=== PATIENT | male | born 1965 | race Caucasian/White ===

== ENCOUNTER → 2020-03-29 10:20 | Outpatient (BNVA) | payer MEDICARE, MEDICAID, SELFPAY | PROVIDERS: Family Provider Nurse Practitioner Family; PCP Nurse Practitioner Family; Visit Provider Internal Medicine Cardiovascular Disease | DX: I50.33 Acute on chronic diastolic (congestive) heart failure (principal); R06.02 Shortness of breath; E78.5 Hyperlipidemia, unspecified | CPT/HCPCS: 80048; 80061; 83880 ==

== ENCOUNTER 2021-04-07 15:44 | Inpatient (IN) | payer MEDICARE, MEDICAID, SELFPAY ==
[2021-04-07] VITALS (7 sets, daily range): BP systolic 120–138; BP diastolic 81–88; PULSE 87–102; RESP 18–22; TEMP 36.6–37.5; O2SAT 82–95; BMI 39.9; BMI 39.6
--- NOTE | 2021-04-07 15:55 | XRR_ITS ---
PROCEDURE INFORMATION: Exam: XR Chest Exam date and time: 04/07/2021 3:55 PM Age: 56 years old Clinical indication: Dyspnea; Additional info: Dyspnea, covid TECHNIQUE: Imaging protocol: XR of the chest. Views: 1 view. COMPARISON: No relevant prior studies available. FINDINGS: Lungs: Consolidative opacities within the mid and lower lungs. Curvilinear atelectasis at the left lung base. Pleural spaces: No evident pleural effusion. No pneumothorax. Heart/Mediastinum: Unremarkable. No cardiomegaly. Bones/joints: Visualized osseous structures are intact. XR/XR chest 1V portable [id number] IMPRESSION: Consolidative opacities within the mid and lower lungs consistent with COVID pneumonia.
--- NOTE | 2021-04-07 15:55 | ECG_ITS ---
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
--- NOTE | 2021-04-07 16:02 | ED_ITS ---
HPI - COVID General: Chief Complaint: COVID symptoms Stated Complaint: SOB; COVID + Time Seen by Provider: 04/07/21 15:51 Triage information: Has fever, cough or shortness of breath . 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 Benign essential HTN Dyslipidemia (high LDL; low HDL) Gout H/O testicular mass History of renal cell cancer Right kidney mass Shortness of breath on exertion SOB (shortness of breath) Testicular cancer Surgical History History of kidney removal Hx of cholecystectomy Family History Father CAD (coronary artery disease) Stroke Mother CAD (coronary artery disease) Diabetes Family/Other Chronic kidney disease (CKD) Brother Suicide Other Hyperlipidemia Hypertension Denies family history of Clotting disorder Dementia Anesthesia complication Bleeding disorder Lung disease Cancer Social History Smoking and tobacco status: current every day smoker (chewing tobacco) smokeless tobacco Smokeless tobacco user: chewing tobacco Alcohol intake: never Course Vital Signs: Vital signs: Vital Signs Temperature 97.8 F 04/07/21 15:52 Pulse Rate 102 H 04/07/21 15:52 Respiratory Rate 22 H 04/07/21 15:52 Blood Pressure 120/88 04/07/21 15:52 Pulse Oximetry 91 04/07/21 15:52 MDM - COVID Lab Data No Data to Display Discharge Plan Discharge Condition: Stable Prescriptions: No Action albuterol sulfate [Proventil HFA] 90 mcg/actuation HFA aerosol inhaler 2 puff INHALATION Q6H PRN0RF atorvastatin 40 mg tablet 40 mg PO DAILY 0RF Brilinta 90 mg tablet 90 mg PO BID 0RF gemfibrozil 600 mg tablet 600 mg PO BID 0RF amlodipine 10 mg tablet 10 mg PO DAILY 90 Days Qty: 90 3RF potassium chloride 8 mEq capsule, extended release 8 meq PO DAILY 30 Days Qty: 30 5RF chlorthalidone 25 mg tablet 25 mg PO DAILY 30 Days Qty: 30 5RF losartan 100 mg tablet 100 mg PO DAILY Qty: 90 3RF carvedilol 25 mg tablet 25 mg PO BID Qty: 60 5RF Rx Instructions: must administer with a meal/food Referrals: Steph Trinidad APN [Primary Care Provider] - Coding Level of Care Code ED Operations Director for Peter Jones
--- NOTE | 2021-04-07 16:09 | ED_ITS ---
HPI - General Adult General: Chief complaint: COVID symptoms Stated complaint: SOB; COVID + Time Seen by Provider: 04/07/21 15:51 History of Present Illness: CC: Shortness of breath, fever and generalized weakness HPI: This is a [56] yo patient w/ hx of CAD w/ stents, nephrectomy presenting to the ED with malaise, generalized weakness, cough sputum production, and fever at home x 7days. Since onset of symptoms, has had some shortness of breath and decreased PO intake. NO recent travel. Endorses no sick contacts around. Reports nausea/vomiting/diarrhea. Denies chest pain, diaphoresis, other GI or complaints. Denies any pleuritic chest pain, recent surgery/immobilization/t ravel, or hematemesis or hx of VTE in the past. Onset: 7 days ago Duration: ongoing for the last 7 days Location: home Severity: moderate Associated symptoms: Reports dyspnea, malaise, nausea and vomiting; Deny chest pain, rash or palpitations Review of Systems Const: Reports: fever(s), chills, fatigue (generalized weakness) and malaise Eyes: Denies: change in vision ENMT: Denies: mouth pain Card: Denies: chest pain or palpitations Resp: Reports: dyspnea and non-productive cough GI: Reports: nausea, vomiting and diarrhea; Denies: abdominal pain : Denies: dysuria Musc: Denies: extremity pain Skin/Breast: Denies: rash or new lesions Neuro: Denies: weakness in extremities Psych: Reports: other (Normal mood) Michele/Lymph: Denies: easy bruising [facility] ED PFSH: Medical History Atherosclerosis of coronary artery of [place] heart without angina pectoris Atherosclerotic heart disease of [place] coronary artery with other forms of angina pectoris Benign essential HTN Dyslipidemia (high LDL; low HDL) Gout H/O testicular mass History of renal cell cancer Right kidney mass Shortness of breath on exertion SOB (shortness of breath) Testicular cancer Surgical History History of kidney removal Hx of cholecystectomy Family History Father CAD (coronary artery disease) Stroke Mother CAD (coronary artery disease) Diabetes Family/Other Chronic kidney disease (CKD) Brother Suicide Other Hyperlipidemia Hypertension Denies family history of Clotting disorder Dementia Anesthesia complication Bleeding disorder Lung disease Cancer Social History Smoking and tobacco status: current every day smoker (chewing tobacco) smokeless tobacco Smokeless tobacco user: chewing tobacco Alcohol intake: never Physical Exam Const: COMMON NORMALS: alert HENMT: COMMON NORMALS: atraumatic HEAD & SCALP: atraumatic MOUTH: moist mucous membranes not abnormal Eye: COMMON NORMALS: EOMs intact bilaterally and conjunctivae normal CONJUNCTIVA: Yes conjunctivae normal Neck/C-Spine: COMMON NORMALS: full ROM and supple Resp: COMMON NORMALS: normal respiratory effort OTHER: Diminished lung sounds b/l Cardio: COMMON NORMALS: regular rate RATE: regular rate GI: COMMON NORMALS: Soft to palpation and non-tender PALPATION: Yes Soft to palpation Extremity: COMMON NORMALS: full ROM Neuro: SENSORIUM/ORIENTATION: Yes alert MOTOR EXAM: No Abnormal motor strength present and Other motor observations present (no focal motor deficits) Psych: COMMON NORMALS: speech normal SPEECH: Yes normal speech MOOD & AFFECT: Yes euthymic mood Course Vital Signs: Vital signs: Vital Signs Temperature 97.8 F 04/07/21 15:52 Pulse Rate 94 04/07/21 15:58 Respiratory Rate 19 H 04/07/21 15:58 Blood Pressure 120/88 04/07/21 15:58 Pulse Oximetry 85 L 04/07/21 16:38 MDM - General Adult Medical Decision Making [56]yo patient w/ hx of nephrectomy, CAD, HLD presenting to the ED with shortness of breath, cough, and malaise concerning for covid in the setting hypoxemia. Patient is on 4L NC with O2 sat of 90%. Upon ambulation, patient requires 12L of NC Given History, Exam, and Workup presentation most consistent with pneumonia.Presentation not consistent with PE, COPD exacerbation, Pneumothorax, TB, Atypical ACS, Esophageal Rupture, Toxic Exposure, Foreign Body Airway Obstruction. Workup: XR Chest, COVID PCR, covidl abs Intervention: Tylenol 1gram, PO challenge, IVF, serial reassessment, oxygen, decadron, remdesivir [5:36pm] On reassessment, XR findings of ground-glass opacity. Findings consi stent with viral pneumonia, suspected COVID. Cr of 1.8 today and K of 2.8. S/p 1L and potassium supplementation. Clinically, fever improved with tylenol. Patient requires 12L of oxygen for ambulation. Thus, patient will need inpatient hospitalization. S/p decadron and remdesivir. Will defer CTA given Cr of 1.8 and single kidney. Disposition: Admission. Lab Data : 04/07/21 16:07 04/07/21 16:07 Laboratory Results WBC 10.6 10^3/uL (4.0-10.0) H 04/07/21 16:07 RBC 5.17 10^6/uL (4.1-5.3) 04/07/21 16:07 Hgb 15.9 g/dL (11.7-16.6) 04/07/21 16:07 Hct 45.9 % (42.0-52.0) 04/07/21 16:07 MCV 88.8 fl (80-94) 04/07/21 16:07 MCH 30.8 pg (28.0-34.0) 04/07/21 16:07 MCHC 34.6 g/dL (30.0-36.0) 04/07/21 16:07 RDW 11.8 % (12.1-15.1) L 04/07/21 16:07 Plt Count 334 10^3/cmm (130-400) 04/07/21 16:07 MPV 10.9 fL (7.4-10.4) H 04/07/21 16:07 Neut % (Auto) 80.2 % 04/07/21 16:07 Lymph % (Auto) 8.2 % 04/07/21 16:07 Howard % (Auto) 6.5 % 04/07/21 16:07 Eos % (Auto) 0.1 % 04/07/21 16:07 Baso % (Auto) 0.6 % 04/07/21 16:07 Neut # (Auto) 8.53 10^3/uL (1.8-7.7) H 04/07/21 16:07 Lymph # (Auto) 0.9 10^3/uL (0.8-4.8) 04/07/21 16:07 Howard # (Auto) 0.7 10^3/uL (0.2-0.9) 04/07/21 16:07 Eos # (Auto) 0.0 10^3/uL (0.0-0.8) 04/07/21 16:07 Baso # (Auto) 0.1 10^3/uL (0.0-0.1) 04/07/21 16:07 Nucleated RBC % (auto) 0 % 04/07/21 16:07 Nucleated RBCs # 0.0 /100WBC 04/07/21 16:07 PT 13.20 SECONDS (12.1-14.9) 04/07/21 16:07 INR 0.97 (0.8-1.2) 04/07/21 16:07 APTT 28.8 SECONDS (23.9-36.7) 04/07/21 16:07 Fibrinogen 1414 mg/dL (174-498) H 04/07/21 16:07 D-Dimer 0.71 ug/mIFEU (0-0.59) H 04/07/21 16:07 Sodium 136 mmol/L (136-145) 04/07/21 16:07 Potassium 2.8 mmol/L (3.5-5.1) L* 04/07/21 16:07 Chloride 87 mmol/L (98-107) L 04/07/21 16:07 Carbon Dioxide 28 mmol/L (22-29) 04/07/21 16:07 Anion Gap 23.8 (5-19) H 04/07/21 16:07 BUN 32 mg/dL (6-20) H 04/07/21 16:07 Creatinine 1.8 mg/dL (0.7-1.2) H 04/07/21 16:07 GFR Calculation 38.9 mL/min (90-130) L 04/07/21 16:07 Glucose 229 mg/dL (65-115) H 04/07/21 16:07 Calculated Osmolality 296 mOsm/kg (285-295) H 04/07/21 16:07 Lactic Acid 1.7 mmol/L (0.5-2.2) 04/07/21 16:07 Calcium 11.1 mg/dL (8.5-10.5) H 04/07/21 16:07 Total Bilirubin 0.4 mg/dL (0.15-1.2) 04/07/21 16:07 AST 25 U/L (0-40) 04/07/21 16:07 ALT 25 U/L (0-41) 04/07/21 16:07 Alkaline Phosphatase 165 IU/L (40-130) H 04/07/21 16:07 Lactate Dehydrogenase 322 U/L (135-225) H 04/07/21 16:07 Creatine Kinase 132 U/L (39-308) 04/07/21 16:07 Troponin T Gen 5 ng/L 76 ng/L (0-15) H 04/07/21 16:07 C-Reactive Protein 309.0 mg/L (0.0-4.9) H 04/07/21 16:07 NT-Pro-B Natriuret Pep 349 pg/mL (0-125) H 04/07/21 16:07 Total Protein 6.6 g/dL (6.6-8.7) 04/07/21 16:07 Albumin 3.8 g/dL (3.5-5.2) 04/07/21 16:07 Globulin 2.8 g/dL (1.3-4.6) 04/07/21 16:07 Procalcitonin 0.54 ng/mL (0-0.5) H 04/07/21 16:07 Discharge Plan Discharge Patient Disposition: Admitted As Inpatient Clinical Impression: Cough, Dyspnea, COVID, RICARDA (acute kidney injury), Acute hypokalemia Condition: Stable Discharge Diet: Advance as tolerated Discharge Activity: Increase activity as tolerated Coding Level of Care Code ED Tax Services Specialist for Peter Fwd Exam Comprehensive
[2021-04-07] MEDS: acetaminophen 500 mg Tablet 1000 MG PO (16:28)
[2021-04-07] MEDS: lidocaine 2% viscous 15 ML, aluminum-mag hydrox-simethicon 30 ML, sucralfate oral liq 1 GM PO (16:28)
[2021-04-07] MEDS: sodium chloride 0.9% 1,000 ML 999 ML IV (16:28)
[2021-04-07 16:57] LABS: Basophils # 0.1 10^3/uL (0.0-0.1); Basophils % 0.6 %; Eosinophils % 0.1 %; Hematocrit 45.9 % (42.0-52.0); Hemoglobin 15.9 g/dL (11.7-16.6); Lymphocytes # 0.9 10^3/uL (0.8-4.8); Lymphocytes % 8.2 %; Mean Corpuscular HGB Conc 34.6 g/dL (30.0-36.0); Mean Corpuscular Hemoglobin 30.8 pg (28.0-34.0); Mean Corpuscular Volume 88.8 fl (80-94); Mean Platelet Volume 10.9 fL (7.4-10.4); Monocytes # 0.7 10^3/uL (0.2-0.9); Monocytes % 6.5 %; Neutrophils # 8.53 10^3/uL (1.8-7.7); Neutrophils % 80.2 %; Nucleated Red Blood Cells % 0 %; Platelet Count 334 10^3/cmm (130-400); Red Blood Count 5.17 10^6/uL (4.1-5.3); Red Cell Distribution Width 11.8 % (12.1-15.1); White Blood Count 10.6 10^3/uL (4.0-10.0)
[2021-04-07 16:59] LABS: ABG PCO2 51.8 mmHg (35-45); Base Excess ABG 5.9 mmol/L (-2.0-2.0); Blood Gas Allen Test Pos; Blood Gas Operator Identificat ED; Blood Gas Sample Site Radial, right; Blood Gas Sample Type Arterial; HCO3 ABG 32.3 mmol/L (22-26); Oxygen Device NC; PO2 ABG 75.2 mmHg (80.0-100.0)
[2021-04-07 17:07] LABS: INR 0.97 (0.8-1.2)
[2021-04-07 17:08] LABS: Partial Thromboplastin Time 28.8 SECONDS (23.9-36.7)
[2021-04-07 17:11] LABS: D Dimer 0.71 ug/mIFEU (0-0.59)
[2021-04-07 17:12] LABS: Lactic Sepsis W/Reflex 1.7 mmol/L (0.5-2.2)
[2021-04-07 17:14] LABS: Troponin T (5th) Once 76 ng/L (0-15)
[2021-04-07 17:23] LABS: Fibrinogen 1414 mg/dL (174-498); NT Pro B Type Natriuretic Pept 349 pg/mL (0-125); Procalcitonin 0.54 ng/mL (0-0.5)
[2021-04-07 17:34] LABS: Alanine Aminotransferase 25 U/L (0-41); Albumin Level 3.8 g/dL (3.5-5.2); Alkaline Phosphatase 165 IU/L (40-130); Anion Gap 23.8 (5-19); Aspartate Amino Transferase 25 U/L (0-40); Blood Urea Nitrogen 32 mg/dL (6-20); Calcium 11.1 mg/dL (8.5-10.5); Carbon Dioxide 28 mmol/L (22-29); Chloride 87 mmol/L (98-107); Creatine Phosphokinase 132 U/L (39-308); Globulin 2.8 g/dL (1.3-4.6); Glomerular Filtration Rate 38.9 mL/min (90-130); Glucose 229 mg/dL (65-115); Lactate Dehydrogenase 322 U/L (135-225); Osmolality Calculated 296 mOsm/kg (285-295); Sodium 136 mmol/L (136-145); Total Bilirubin 0.4 mg/dL (0.15-1.2); Total Protein 6.6 g/dL (6.6-8.7)
[2021-04-07 17:36] LABS: Potassium 2.8 mmol/L (3.5-5.1)
[2021-04-07] MEDS: potassium chloride ER 20 mEq Tablet 40 MEQ PO (17:51)
[2021-04-07] MEDS: dexamethasone 10 mg/mL INJ 6 MG IVP (17:52)
[2021-04-07] MEDS: lidocaine 1% 5 ML in potassium chloride premix 100 ML 50 ML IV (17:53)
[2021-04-07] MEDS: remdesivir 200 MG in sodium chloride 0.9% (100 ml) 60 ML 100 MG IV (17:58)
--- NOTE | 2021-04-07 21:21 | ECG_ITS ---
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1965 Requested By: Dagoberto Torrez Order Number: [id number] Reading MD: STEFANI BERG Measurements Intervals [place] Rate: 82 P: 45 ID: 151 QRS: 10 QRSD: 100 T: 53 QT: 365 QTc: 428 Interpretive Statements SINUS RHYTHM MINIMAL VOLTAGE CRITERIA FOR LVH, CONSIDER NORMAL VARIANT [MEETS CRITERIA IN ONE OF: R(aVL), S(V1), R(V5), R(V5/V6)+S(V1)] NONSPECIFIC T-WAVE ABNORMALITY Compared to ECG 04/07/2021 16:26:40 T-wave abnormality now present ST (T wave) deviation no longer present Electronically Signed On 04-08-2021 19:51:26 VICTORIAN LITERATURE PROFESSOR by STEFANI BERG [id number]
--- NOTE | 2021-04-07 21:42 | PM.HP ---
Providers/Chief Complaint Admitting Physician: Fuentes Seaman MD Primary Care Provider: Steph Trinidad APN Chief Complaint: SOB; COVID + History of Present Illness Luis Vidales is a 56 year old male with a past medical history of CAD status post stenting x1, CHF, hypertension, hyperlipidemia, prior history of smoking over 30 years ago, history of renal cell carcinoma with nephrectomy who presents to [facility] due to fatigue, malaise, shortness of breath, loss of taste, loss of smell, chest pain, for the last 7 days. Patient tells me that for the last 7 days he has had shortness of breath at rest with exertion, with low-grade fevers, productive cough, fatigue, malaise, for the last 3 days he has had significant nausea, vomiting, has not been able to keep anything down for the last 24 hours, also reports diarrhea. He also reports substernal chest pain, nonradiating, associate with shortness of breath, no lightheadedness, no diaphoresis. In the emergency room, patient was found to have consolidative process in bilateral lungs, elevated pro-Patrick, white count of 10.6, was given remdesivir, Decadron, Actemra, his potassium was 2.8 which was repleted, creatinine 1.8. He was admitted for COVID-19 pneumonia concerns, I have seen patient, currently is on 7 L, no tachypnea, no respiratory distress, no flu or Covid test has been ordered, which will I will order Review of Systems Const: Reports: fever(s), chills, fatigue and malaise Eyes: Denies: change in vision or blurry vision ENMT: Denies: nasal congestion Card: Reports: chest pain and dyspnea on exertion Resp: Reports: dyspnea, productive cough and wheezing; Denies: non-productive cough GI: Reports: nausea, vomiting and diarrhea; Denies: abdominal pain, hematemesis, constipation, hematochezia or melena : Denies: flank pain, difficulty urinating, dysuria or urinary frequency Musc: Denies: neck pain or back pain Skin/Breast: Denies: rash Neuro: Denies: headache(s), dizziness or vertigo Psych: Denies: anxiety or depression Endo: Denies: polyuria or polydipsia Medications/Allergies Home Medications Medication Instructions Recorded Confirmed Last Taken Type albuterol sulfate 90 mcg/actuation 2 puff INHALATION Q6H PRN 09/20/19 09/20/19 Unknown History aerosol inhaler (Proventil HFA) atorvastatin 40 mg tablet 40 mg PO DAILY 09/20/19 09/20/19 Unknown History ticagrelor 90 mg tablet (Brilinta) 90 mg PO BID 09/20/19 09/20/19 Unknown History amlodipine 10 mg tablet 10 mg PO DAILY 90 Days #90 tab 07/10/20 07/10/20 Unknown Rx gemfibrozil 600 mg tablet 600 mg PO BID tab 07/10/20 Unknown History losartan 100 mg tablet 100 mg PO DAILY #90 tab 08/20/20 Unknown Rx chlorthalidone 25 mg tablet 25 mg PO DAILY 30 Days #30 tab 02/14/21 02/14/21 Unknown Rx potassium chloride 8 mEq 8 meq PO DAILY 30 Days #30 cap 02/14/21 02/14/21 Unknown Rx capsule,extended release carvedilol 25 mg tablet 25 mg PO BID #60 tab 03/12/21 Unknown Rx acetaminophen 500 mg tablet 500 mg PO Q6H PRN 5 Days #20 tab 04/07/21 Unknown Rx calcium carbonate 1,000 1 tab PO TID PRN 7 Days #21 tab 04/07/21 Unknown Rx mg-simethicone 60 mg chewable tablet (Maalox Advanced) famotidine 20 mg tablet (Pepcid) 20 mg PO BID PRN 10 Days #20 tab 04/07/21 Unknown Rx ondansetron HCl 4 mg tablet 4 mg PO TID PRN 4 Days #12 tab 04/07/21 Unknown Rx (Zofran) Allergies Allergy/AdvReac Type Severity Reaction Status Date / Time isosorbide Allergy headache Verified 04/07/21 15:58 tramadol Allergy unk Verified 04/07/21 15:58 PFSH Acute PFSH: Medical History Atherosclerosis of coronary artery of [place] heart without angina pectoris Atherosclerotic heart disease of [place] coronary artery with other forms of angina pectoris Benign essential HTN Dyslipidemia (high LDL; low HDL) Gout H/O testicular mass History of renal cell cancer Right kidney mass Shortness of breath on exertion SOB (shortness of breath) Testicular cancer Surgical History History of kidney removal Hx of cholecystectomy Family History Father CAD (coronary artery disease) Stroke Mother CAD (coronary artery disease) Diabetes Family/Other Chronic kidney disease (CKD) Brother Suicide Other Hyperlipidemia Hypertension Denies family history of Clotting disorder Dementia Anesthesia complication Bleeding disorder Lung disease Cancer Social History Smoking and tobacco status: current every day smoker (chewing tobacco) smokeless tobacco Smokeless tobacco user: chewing tobacco Alcohol intake: never Vitals/I&O/Wt Last Vital Signs Temp 97.8 F 04/07/21 15:52 Pulse 94 04/07/21 18:02 Resp 18 04/07/21 18:02 BP 121/84 04/07/21 18:02 Pulse Ox 95 04/07/21 21:10 04/07/21 04/07/21 04/07/21 06:59 14:59 22:59 Intake Total 1105.833 / 1105.833 Balance 1105.833 / 1105.833 Weight last 48 hrs Weight 112.037 kg Weight 111.612 kg Weight 112.037 kg Physical Exam Const: COMMON NORMALS: no acute distress and patient oriented x3 HENMT: COMMON NORMALS: normocephalic HEAD & SCALP: normocephalic Neck/C-Spine: COMMON NORMALS: no JVD Lymph: LYMPHATIC: no lymphadenopathy noted Resp: COMMON NORMALS: normal respiratory effort, No retractions, No use of accessory muscles and clear to auscultation bilaterally AUSCULTATION: clear to auscultation bilaterally Cardio: COMMON NORMALS: no JVD, regular rate, regular rhythm, S1 normal heart sound present and S2 normal heart sound present RATE: regular rate RHYTHM: regular rhythm HEART SOUNDS: S1 normal heart sound present and S2 normal heart sound present GI: COMMON NORMALS: Normal to inspection, nondistended, normoactive bowel sounds present, Soft to palpation, non-tender, No hepatosplenomegaly present, no masses and no bruits PALPATION: Yes Soft to palpation and Yes No hepatosplenomegaly present Extremity: COMMON NORMALS: capillary refill normal, no clubbing, cyanosis or edema, no calf tenderness and no pedal edema Neuro: COMMON NORMALS: patient oriented x3 Psych: COMMON NORMALS: mental status grossly normal Data : 04/07/21 16:07 04/07/21 16:07 A&P Assessment and plan (1) Acute and chronic respiratory failure with hypoxia: Status: Acute (2) NSTEMI (non-ST elevated myocardial infarction): Status: Acute (3) RICARDA (acute kidney injury): Status: Acute (4) Acute hypokalemia: Status: Acute (5) Dyslipidemia (high LDL; low HDL): Status: Acute Plan Acute hypoxic respiratory failure -Currently on 7 L -Concerning for COVID-19 pneumonia -I have ordered a COVID-19 test, flu test -Has already received remdesivir, Decadron, Actemra -There is also concern for secondary bacterial pneumonia, given chest x-ray findings of consolidative processes, I started him on Rocephin and azithromycin -Elevated CRP at 309, pro-Patrick 0.54 -Vitamin C, zinc low vitamin D - budesonide, ipratropium -Incentive spirometer, flutter valve -Full code -Lovenox for DVT prophylaxis -Elevated D-dimer 0.7, monitor D-dimers, consider CT angiogram if D-dimer continues to be elevated, venous ultrasound NSTEMI -Concerns for chest pain has underlying cardiovascular history, CAD status post 20x1 -No current chest pain - Baseline troponin 76, EKG no acute ST-T wave changes -No further troponin series has been ordered -Serial troponins, serial EKGs ordered, telemetry monitoring -Continue Brilinta, statin -Cardiac echo ordered Has elevated blood sugars, no diagnosis of type 2 diabetes mellitus, will obtain A1c, monitor blood sugars CAD status post tenting History of renal cell carcinoma status post nephrectomy, Creatinine 1.8, RICARDA, however baseline creatinine unknown, renal ultrasound, gentle IV fluids Hypokalemia likely secondary to nausea, vomiting received IV replacement p.o. replacement monitor potassium Nausea, vomiting, diarrhea, stool studies, Zofran Attestations Medical Necessity Statement*: Patient requires hospitalization for acute respiratory failure secondary to concerns for COVID-19 pneumonia, possible secondary bacterial pneumonia, acute renal failure, hypokalemia Coding Level of Care Code Acute Director Franchise Sales for Chg Fwd History Comprehensive Exam Comprehensive Medical Decision Making High Complexity Diagnoses Acute and chronic respiratory failure with hypoxia J96.21 NSTEMI (non-ST elevated myocardial infarction) I21.4 RICARDA (acute kidney injury) N17.9 Acute hypokalemia E87.6 Dyslipidemia (high LDL; low HDL) E78.5 Time Spent (min) 55
[2021-04-07] MEDS: cefTRIAXone 1,000 MG in sodium chloride 0.9% (plus) 50 ML 100 MG IV (22:50)
[2021-04-07] MEDS: atorvastatin 40 mg Tablet PO (22:50)
[2021-04-07] MEDS: enoxaparin 40 mg/0.4 mL Syringe SUBCUT (22:50)
[2021-04-07] MEDS: ticagrelor 90 mg Tablet PO (22:51)
[2021-04-07] MEDS: sodium chloride 0.9% 1,000 ML 75 ML IV (22:51)
[2021-04-07] MEDS: famotidine 20 mg/2 mL INJ IVP (22:51)
[2021-04-07 23:14] LABS: Troponin(5th) Baseline 50 ng/L (0-15)
--- NOTE | 2021-04-07 23:21 | ECG_ITS ---
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: : 1965 Requested By: Dagoberto Torrez Order Number: [id number] Reading MD: STEFANI EBRG Measurements Intervals [place] Rate: 80 P: 46 NE: 143 QRS: 7 QRSD: 129 T: 55 QT: 378 QTc: 437 Interpretive Statements SINUS RHYTHM MODERATE INTRAVENTRICULAR CONDUCTION DELAY [110+ ms QRS DURATION] MODERATE VOLTAGE CRITERIA FOR LVH, CONSIDER NORMAL VARIANT [MEETS CRITERIA IN ONE OF: R(aVL), S(V1), R(V5), R(V5/V6)+S(V1)] NONSPECIFIC ST & T-WAVE ABNORMALITY Compared to ECG 04/07/2021 21:56:28 Intraventricular conduction delay now present T-wave abnormality still present Electronically Signed On 04-08-2021 19:52:34 RECORD PRESS SUPERVISOR by STEFANI BERG [id number]
[2021-04-07 23:25] LABS: Estmated Average Glucose 209; Hemoglobin A1C 8.9 % (4.0-6.0)
[2021-04-07] MEDS: azithromycin 500 MG in sodium chloride 0.9% 250 ML 250 MG IV (23:41)
[2021-04-07 23:55] LABS: Adenovirus Not Detected (NOT DETECT); Chlamydia Pneumoniae Not Detected (NOT DETECT); Coronavirus 229E,HKU1,NL63,OC4 Not Detected (NOT DETECT); Human Metapneumovirus Not Detected (NOT DETECT); Human Rhinovirus/Enterovirus Not Detected (NOT DETECT); Influenza A Not Detected (NOT DETECT); Influenza A H1 Not Detected (NOT DETECT); Influenza A H1-2009 Not Detected (NOT DETECT); Influenza A H3 Not Detected (NOT DETECT); Influenza B Not Detected (NOT DETECT); Mycoplasma Pneumoniae Not Detected (NOT DETECT); Parainfluenza Virus Type 1 Not Detected (NOT DETECT); Parainfluenza Virus Type 2 Not Detected (NOT DETECT); Parainfluenza Virus Type 3 Not Detected (NOT DETECT); Parainfluenza Virus Type 4 Not Detected (NOT DETECT); Respiratory Syncytial Virus A Not Detected (NOT DETECT); Respiratory Syncytial Virus B Not Detected (NOT DETECT); SARS-COV-2 Detected (NOT DETECT)
[2021-04-08] VITALS (14 sets, daily range): BP systolic 127–168; BP diastolic 71–88; PULSE 63–98; RESP 16–20; TEMP 36.4–36.9; O2SAT 92–96
[2021-04-08] MEDS: ipratropium-albuterol 3 mL Neb INHALATION ×6 (00:14→20:14)
[2021-04-08 01:03] LABS: Influenza A by IFA Negative (Negative); Influenza B by IFA Negative (Negative)
[2021-04-08 02:09] LABS: Troponin 5 2HR 41.47 ng/L (0-15)
--- NOTE | 2021-04-08 03:21 | ECG_ITS ---
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1965 Requested By: Dagoberto Torrez Order Number: [id number] Reading MD: STEFANI BERG Measurements Intervals [place] Rate: 85 P: 34 [place]: 153 QRS: 4 QRSD: 118 T: 71 QT: 369 QTc: 441 Interpretive Statements SINUS RHYTHM MODERATE INTRAVENTRICULAR CONDUCTION DELAY [110+ ms QRS DURATION] MODERATE VOLTAGE CRITERIA FOR LVH, CONSIDER NORMAL VARIANT [MEETS CRITERIA IN ONE OF: R(aVL), S(V1), R(V5), R(V5/V6)+S(V1)] NONSPECIFIC T-WAVE ABNORMALITY Compared to ECG 04/07/2021 23:36:49 No significant changes Electronically Signed On 04-08-2021 19:52:24 DESK DIRECTOR by STEFANI BERG [id number]
[2021-04-08 06:06] LABS: Basophils % 0.3 %; Hematocrit 43.7 % (42.0-52.0); Hemoglobin 15.1 g/dL (11.7-16.6); Lymphocytes # 0.5 10^3/uL (0.8-4.8); Lymphocytes % 7.9 %; Mean Corpuscular HGB Conc 34.6 g/dL (30.0-36.0); Mean Corpuscular Hemoglobin 30.9 pg (28.0-34.0); Mean Corpuscular Volume 89.5 fl (80-94); Mean Platelet Volume 10.8 fL (7.4-10.4); Monocytes # 0.3 10^3/uL (0.2-0.9); Neutrophils % 82.7 %; Nucleated Red Blood Cells % 0 %; Platelet Count 238 10^3/cmm (130-400); Red Blood Count 4.88 10^6/uL (4.1-5.3); Red Cell Distribution Width 11.9 % (12.1-15.1); White Blood Count 6.3 10^3/uL (4.0-10.0)
[2021-04-08 06:14] LABS: Troponin 5 6HR 37.31 ng/L (0-15)
[2021-04-08 06:23] LABS: Slide Review Slide Review Perform
[2021-04-08 06:42] LABS: NT Pro B Type Natriuretic Pept 92 pg/mL (0-125); Procalcitonin 0.28 ng/mL (0-0.5); Thyroid Stimulating Hormone 0.36 uIU/mL (0.27-4.20)
[2021-04-08 06:53] LABS: Alanine Aminotransferase 23 U/L (0-41); Alkaline Phosphatase 132 IU/L (40-130); Blood Urea Nitrogen 31 mg/dL (6-20); Calcium 10.3 mg/dL (8.5-10.5); Carbon Dioxide 21 mmol/L (22-29); Chloride 93 mmol/L (98-107); Globulin 3.6 g/dL (1.3-4.6); Glomerular Filtration Rate 68.8 mL/min (90-130); Glucose 329 mg/dL (65-115); Magnesium 2.2 mg/dL (1.7-2.3); Osmolality Calculated 295 mOsm/kg (285-295); Phosphorus 2.8 mg/dL (2.5-4.5); Sodium 133 mmol/L (136-145); Total Bilirubin 0.3 mg/dL (0.15-1.2); Total Protein 6.6 g/dL (6.6-8.7)
[2021-04-08 06:54] LABS: Glucose Point of Care 303 mg/dL (70-110)
[2021-04-08 06:55] LABS: Anion Gap 22.7 (5-19); Aspartate Amino Transferase 25 U/L (0-40); Potassium 3.7 mmol/L (3.5-5.1)
[2021-04-08] MEDS: zinc gluconate 50 mg Tablet PO (08:09)
[2021-04-08] MEDS: cholecalciferol (vitamin D3) 1,000 unit Tablet 1000 UNIT PO (08:09)
[2021-04-08] MEDS: famotidine 20 mg/2 mL INJ IVP ×2 (08:09→21:17)
[2021-04-08] MEDS: ascorbic acid 500 mg Tablet PO ×2 (08:09→17:23)
[2021-04-08] MEDS: carvedilol 25 mg Tablet PO ×2 (08:09→17:23)
[2021-04-08] MEDS: ticagrelor 90 mg Tablet PO ×2 (08:11→21:19)
[2021-04-08] MEDS: budesonide 0.5 mg/2 mL Neb INHALATION ×2 (09:20→20:14)
[2021-04-08] MEDS: sodium chloride 0.9% 1,000 ML 75 ML IV (12:10)
[2021-04-08 12:19] LABS: Glucose Point of Care 349 mg/dL (70-110)
[2021-04-08] MEDS: remdesivir 100 MG in sodium chloride 0.9% (100 ml) 80 ML IV (17:22)
[2021-04-08] MEDS: dexamethasone 10 mg/mL INJ 6 MG IVP (17:23)
[2021-04-08 17:24] LABS: Glucose Point of Care 310 mg/dL (70-110)
--- NOTE | 2021-04-08 17:51 | P.PN_ITS ---
Subjective Subjective: Interval history: He is feeling better. He is bothered by cough. Denies headache, nausea vomiting, chest pain or pressure. Vitals/I&O/Wt Last Vital Signs Temp 98.2 F 04/08/21 12:00 Pulse 76 04/08/21 16:51 Resp 16 04/08/21 16:51 BP 168/71 04/08/21 08:00 Pulse Ox 94 04/08/21 16:51 04/08/21 04/08/21 04/08/21 06:59 14:59 22:59 Intake Total 300 / 8359.416 0472.75 / 1318.75 Output Total 650 / 900 750 / 750 Balance -350 / 505.833 568.75 / 568.75 Weight last 48 hrs Weight 112.037 kg Weight 111.612 kg Weight 112.037 kg Physical Exam Const: COMMON NORMALS: no acute distress and patient oriented x3 HENMT: COMMON NORMALS: oropharynx normal Neck/C-Spine: COMMON NORMALS: no JVD Resp: COMMON NORMALS: normal respiratory effort and clear to auscultation bilaterally AUSCULTATION: clear to auscultation bilaterally Cardio: COMMON NORMALS: no JVD, regular rhythm, S1 normal heart sound present, S2 normal heart sound present and No murmurs present (Cardio) RHYTHM: regular rhythm HEART SOUNDS: S1 normal heart sound present and S2 normal heart sound present GI: COMMON NORMALS: Normal to inspection, nondistended, normoactive bowel sounds present, Soft to palpation and non-tender PALPATION: Yes Soft to palpation Extremity: COMMON NORMALS: no joint enlargement and no pedal edema Neuro: COMMON NORMALS: patient oriented x3 and moves all extremities Skin: COMMON NORMALS: no rashes or lesions noted GENERAL SKIN EXAM: no rashes or lesions noted Data : 04/08/21 04:41 04/08/21 04:41 Micro: Microbiology 04/07/21 21:56 Gram Stain - Final Sputum - Expectorated Sputum 04/07/21 21:56 Bacterial Antigens - Final Urine,Clean Catch 04/07/21 22:30 Blood Culture - Preliminary Blood SPECIMEN COLLECTED 04/07/21 22:27 Blood Culture - Preliminary Blood SPECIMEN COLLECTED 04/07/21 21:56 Legionella Urinary Antigen - Final Urine,Voided A&P Assessment and plan (1) Acute and chronic respiratory failure with hypoxia: Improving. Down to 4 L nasal cannula oxygen from 7. Feeling better. Secondary to severe COVID-19. Continue Decadron, remdesivir. Continue per antibiotic coverage for now with ceftriaxone and azithromycin. Continue Lovenox VT prophylaxis. Add antitussives. Continue oxygen support, wean down as tolerating. Continue supportive care. Supportive care. Status: Acute (2) NSTEMI (non-ST elevated myocardial infarction): Chest pain-free. Troponin abnormal. Trend not suggestive of acute CT. Likely demand ischemia due to acute hypoxic respiratory failure. Continue Brilinta, statin, carvedilol. History of CAD with stenting. Consider stress testing assessment once out of acute illness episode. Status: Acute (3) RICARDA (acute kidney injury): Improved. Stop IVF. Status: Acute (4) Acute hypokalemia: Replaced. Status: Acute (5) Dyslipidemia (high LDL; low HDL): Status: Acute Plan Has elevated blood sugars, no diagnosis of type 2 diabetes mellitus, will obtain A1c, monitor blood sugars: Add SSI History of renal cell carcinoma status post nephrectomy, Nausea, vomiting, diarrhea, stool studies, Zofran Attestations Medical Necessity Statement*: Continue admission for assessment management of hypoxia for failure secondary to severe COVID-19. Coding Level of Care Code Acute Sole Layer Hand for Peter Jones Diagnoses Acute and chronic respiratory failure with hypoxia J96.21 NSTEMI (non-ST elevated myocardial infarction) I21.4 RICARDA (acute kidney injury) N17.9 Acute hypokalemia E87.6 Dyslipidemia (high LDL; low HDL) E78.5
[2021-04-08] MEDS: guaiFENesin-dextromethorphan UDC 10 mL PO (18:21)
[2021-04-08] MEDS: insulin lispro 100 unit/1 mL SUBCUT ×2 (18:22→21:16)
[2021-04-08 20:56] LABS: Glucose Point of Care 375 mg/dL (70-110)
[2021-04-08] MEDS: benzonatate 100 mg Capsule 200 MG PO (21:15)
[2021-04-08] MEDS: atorvastatin 40 mg Tablet PO (21:15)
[2021-04-08] MEDS: cefTRIAXone 1,000 MG in sodium chloride 0.9% (plus) 50 ML 100 MG IV (21:16)
[2021-04-08] MEDS: enoxaparin 40 mg/0.4 mL Syringe SUBCUT (21:17)
--- NOTE | 2021-04-08 21:19 | USCV_ITS ---
Luis Vidales Age: 56 Gender: M : 1965 Exam Date: 04/08/2021 06:38 Ordering Phys: Dagoberto Torrez MD Technologist: Exam Location: [facility] – [place] Indication: COVID BP: / HR: Rhythm: Sinus Technical Quality: Very technically difficult study MEASUREMENTS (Male / Female) Normal Values FINDINGS Left Ventricle Right Ventricle Right Atrium Left Atrium Mitral Valve Aortic Valve Tricuspid Valve Pulmonic Valve Pericardium Aorta CONCLUSIONS There are no windows for assessment of cardiac structure and function. Portia Bruce MD (Electronically Signed) Final Date: 08 April 2021 12:49 S
--- NOTE | 2021-04-08 21:36 | USCV_ITS ---
Luis Vidales Age: 56 Gender: M : 1965 Exam Date: 04/08/2021 06:21 Ordering Phys: Dagoberto Trorez MD Technologist: [place] [facility] [place]: SWELLING PROCEDURES: The venous duplex Doppler examination of both lower extremities was performed in the standard fashion. The following venous structures were evaluated: common femoral vein, profunda vein, proximal portion of the greater saphenous vein, superficial femoral vein, and the popliteal vein. FINDINGS: Normal 2-D Doppler and augmentation and compressibility throughout the lower extremity venous structures. Additional imaging through the proximal calf veins also reveals no thrombus. Limited evaluation of the greater saphenous vein is patent with no thrombus. CONCLUSIONS No DVT bilateral lower extremities. Dr. Diann Ruiz DO (Electronically Signed) Final Date: 08 April 2021 07:45 S
--- NOTE | 2021-04-08 21:43 | US_ITS ---
WS: [id number] RENAL ULTRASOUND HISTORY: Status post RIGHT nephrectomy for carcinoma. COMPARISON: CT 08/30/2007 TECHNIQUE: 2-D and color Doppler imaging of the kidney submitted. Right kidney: Prior RIGHT nephrectomy. No mass identified at the renal bed. Left kidney: 13.0 cm x 5.2 cm x 6.6 cm. Normal echogenicity with no hydronephrosis or mass. Aorta: Poorly visualized. No abnormality identified. Urinary Bladder: Normal distention. US/US renal BI* [id number] IMPRESSION: 1. Normal LEFT kidney. 2. Prior RIGHT nephrectomy.
[2021-04-08] MEDS: azithromycin 500 MG in sodium chloride 0.9% 250 ML 250 MG IV (23:03)
[2021-04-09] VITALS (8 sets, daily range): BP systolic 133–138; BP diastolic 50–81; PULSE 53–79; RESP 15–17; TEMP 36.5–36.9; O2SAT 86–95
[2021-04-09] MEDS: ipratropium-albuterol 3 mL Neb INHALATION ×3 (00:12→09:53)
[2021-04-09 05:59] LABS: Basophils % 0.2 %; Hematocrit 38.1 % (42.0-52.0); Lymphocytes # 0.5 10^3/uL (0.8-4.8); Lymphocytes % 6.2 %; Mean Corpuscular HGB Conc 34.1 g/dL (30.0-36.0); Mean Corpuscular Hemoglobin 31.2 pg (28.0-34.0); Mean Corpuscular Volume 91.4 fl (80-94); Mean Platelet Volume 10.3 fL (7.4-10.4); Monocytes # 0.6 10^3/uL (0.2-0.9); Monocytes % 7.1 %; Neutrophils # 6.99 10^3/uL (1.8-7.7); Neutrophils % 81.9 %; Nucleated Red Blood Cells % 0 %; Platelet Count 282 10^3/cmm (130-400); Red Blood Count 4.17 10^6/uL (4.1-5.3); Red Cell Distribution Width 11.8 % (12.1-15.1); White Blood Count 8.5 10^3/uL (4.0-10.0)
[2021-04-09 06:13] LABS: D Dimer 0.62 ug/mIFEU (0-0.59)
[2021-04-09 06:34] LABS: Alanine Aminotransferase 25 U/L (0-41); Alkaline Phosphatase 142 IU/L (40-130); Anion Gap 12.5 (5-19); Aspartate Amino Transferase 24 U/L (0-40); Blood Urea Nitrogen 25 mg/dL (6-20); C Reactive Protein 60.7 mg/L (0.0-4.9); Calcium 9.5 mg/dL (8.5-10.5); Carbon Dioxide 32 mmol/L (22-29); Chloride 94 mmol/L (98-107); Globulin 3.3 g/dL (1.3-4.6); Glomerular Filtration Rate 99.3 mL/min (90-130); Glucose 268 mg/dL (65-115); Magnesium 2.1 mg/dL (1.7-2.3); Osmolality Calculated 294 mOsm/kg (285-295); Phosphorus 2.7 mg/dL (2.5-4.5); Potassium 3.5 mmol/L (3.5-5.1); Sodium 135 mmol/L (136-145); Total Bilirubin 0.2 mg/dL (0.15-1.2); Total Protein 6.3 g/dL (6.6-8.7)
[2021-04-09 06:54] LABS: Glucose Point of Care 291 mg/dL (70-110)
[2021-04-09] MEDS: ticagrelor 90 mg Tablet PO (08:14)
[2021-04-09] MEDS: benzonatate 100 mg Capsule 200 MG PO (08:14)
[2021-04-09] MEDS: famotidine 20 mg/2 mL INJ IVP (08:14)
[2021-04-09] MEDS: carvedilol 25 mg Tablet PO (08:14)
[2021-04-09] MEDS: ascorbic acid 500 mg Tablet PO (08:14)
[2021-04-09] MEDS: zinc gluconate 50 mg Tablet PO (08:14)
[2021-04-09] MEDS: cholecalciferol (vitamin D3) 1,000 unit Tablet 1000 UNIT PO (08:14)
[2021-04-09] MEDS: insulin lispro 100 unit/1 mL SUBCUT ×2 (08:23→13:03)
[2021-04-09] MEDS: budesonide 0.5 mg/2 mL Neb INHALATION (09:53)
[2021-04-09 11:06] LABS: Glucose Point of Care 243 mg/dL (70-110)
--- NOTE | 2021-04-09 11:36 | P.DS_ITS ---
Discharge Providers Date of Admission: 04/07/21 17:48 Date of Discharge: April 09, 2021 Attending Provider at Admission: Fuentes Seaman MD Attending Provider at Discharge: Domenico Terrazas Primary Care Provider: Steph Trinidad APN Diagnoses at Discharge Discharge Diagnosis (1) Acute and chronic respiratory failure with hypoxia: Status: Acute (2) NSTEMI (non-ST elevated myocardial infarction): Status: Acute (3) RICARDA (acute kidney injury): Status: Acute (4) Acute hypokalemia: Status: Acute (5) Dyslipidemia (high LDL; low HDL): Status: Acute Reason for Visit Reason for Visit: SOB; COVID + Hospital Course Hospital Course Pleasant 56-year-old gentleman with history of CAD, prior stenting, renal cell cancer, status post nephrectomy, was admitted for assessment treatment of acute hypoxic respiratory failure requiring 7 L of oxygen on presentation, with finding of severe COVID-19, at presentation also with acute kidney injury, creatinine up to 1.8, and noted hypokalemia, potassium 3.8. Also noted troponin abnormality, baseline 50, 2/41.47, 637.3. D-dimer 0.71-0.62. Underwent treatment for COVID-19 with visit with Decadron, received Actemra. Required as much as 2 L of oxygen at one point, with gradual improvement. Currently down to 2 L nasal cannula as of this morning. He is feeling much better, feels ready to return home, home oxygen evaluation is requested at discharge. He remains chest pain-free. Echocardiogram was obtained but no usable windows could be found. Assess troponin is not suggestive of acute NC, however, with history of coronary disease, carotid, once he recovers from acute episode of illness please refer her for additional assessment by stress testing. Acute kidney injury noted on presentation has been resolving, creatinine 0.8, BUN 25. He is for now asked to hold losartan, chlorthalidone. Please reassess renal function in office. Hypokalemia replaced. Physical Exam Narrative: EXAM NARRATIVE: Up at edge of bed. In good spirits. Dressed in street clothes. Requests to go home. Const: COMMON NORMALS: no acute distress and patient oriented x3 HENMT: COMMON NORMALS: oropharynx normal Neck/C-Spine: COMMON NORMALS: no JVD Resp: COMMON NORMALS: normal respiratory effort and clear to auscultation bilaterally AUSCULTATION: clear to auscultation bilaterally Cardio: COMMON NORMALS: no JVD, regular rhythm, S1 normal heart sound present, S2 normal heart sound present and No murmurs present (Cardio) RHYTHM: regular rhythm HEART SOUNDS: S1 normal heart sound present and S2 normal heart sound present GI: COMMON NORMALS: Normal to inspection, nondistended, normoactive bowel sounds present, Soft to palpation and non-tender PALPATION: Yes Soft to palpation Extremity: COMMON NORMALS: no joint enlargement and no pedal edema Neuro: COMMON NORMALS: patient oriented x3 and moves all extremities Skin: COMMON NORMALS: no rashes or lesions noted GENERAL SKIN EXAM: no rashes or lesions noted Discharge Data Studies Completed and Pending Completed Studies During Hospitalization Category Date Time Status XR chest 1V portable [id number] Stat Exams 04/07/21 15:55 [place] [id number] Routine Ultrasound 04/08/21 21:36 Completed CV. echo complete* [id number] Routine Ultrasound 04/08/21 21:19 Completed US renal BI* [id number] Routine Ultrasound 04/08/21 21:43 Completed Pending at discharge Category Date Time Status Blood Culture Stat Lab 04/07/21 22:30 Results C Reactive Protein AM LABS Lab 04/10/21 04:00 Ordered C Reactive Protein AM LABS Lab 04/11/21 04:00 Ordered COVID [SARS Covid-2 Antigen] Routine Lab 04/07/21 21:47 Ordered Clostridioides Difficile PCR Routine Lab 04/07/21 21:56 Ordered Complete Blood Count w/Auto AM LABS Lab 04/10/21 04:00 Ordered Complete Blood Count w/Auto AM LABS Lab 04/11/21 04:00 Ordered Comprehensive Metabolic Panel AM LABS Lab 04/10/21 04:00 Ordered Comprehensive Metabolic Panel AM LABS Lab 04/11/21 04:00 Ordered D Dimer AM LABS Lab 04/10/21 04:00 Ordered D Dimer AM LABS Lab 04/11/21 04:00 Ordered Enteric Bacterial Panel by PCR Routine Lab 04/07/21 21:56 Ordered Enteric Parasite Panel by PCR Routine Lab 04/07/21 21:56 Ordered Immunochemical Fecal OCB Routine Lab 04/07/21 21:56 Ordered Lactoferrin Routine Lab 04/07/21 21:56 Ordered Magnesium AM LABS Lab 04/09/21 04:00 Ordered Magnesium AM LABS Lab 04/10/21 04:00 Ordered Phosphorus AM LABS Lab 04/09/21 04:00 Ordered Phosphorus AM LABS Lab 04/10/21 04:00 Ordered Sputum Culture and Gram Stain Stat Lab 04/07/21 21:56 Results Radiology Impressions Chest X-Ray 04/07/21 15:55 IMPRESSION: Consolidative opacities within the mid and lower lungs consistent with COVID pneumonia. Renal Ultrasound 04/08/21 21:43 IMPRESSION: 1. Normal LEFT kidney. 2. Prior RIGHT nephrectomy. Laboratory Results WBC 8.5 10^3/uL (4.0-10.0) 04/09/21 05:43 RBC 4.17 10^6/uL (4.1-5.3) 04/09/21 05:43 Hgb 13.0 g/dL (11.7-16.6) 04/09/21 05:43 Hct 38.1 % (42.0-52.0) L 04/09/21 05:43 MCV 91.4 fl (80-94) 04/09/21 05:43 MCH 31.2 pg (28.0-34.0) 04/09/21 05:43 MCHC 34.1 g/dL (30.0-36.0) 04/09/21 05:43 RDW 11.8 % (12.1-15.1) L 04/09/21 05:43 Plt Count 282 10^3/cmm (130-400) 04/09/21 05:43 MPV 10.3 fL (7.4-10.4) 04/09/21 05:43 Neut % (Auto) 81.9 % 04/09/21 05:43 Lymph % (Auto) 6.2 % 04/09/21 05:43 [place] % (Auto) 7.1 % 04/09/21 05:43 Eos % (Auto) 0.0 % 04/09/21 05:43 Baso % (Auto) 0.2 % 04/09/21 05:43 Neut # (Auto) 6.99 10^3/uL (1.8-7.7) 04/09/21 05:43 Lymph # (Auto) 0.5 10^3/uL (0.8-4.8) L 04/09/21 05:43 [place] # (Auto) 0.6 10^3/uL (0.2-0.9) 04/09/21 05:43 Eos # (Auto) 0.0 10^3/uL (0.0-0.8) 04/09/21 05:43 Baso # (Auto) 0.0 10^3/uL (0.0-0.1) 04/09/21 05:43 Nucleated RBC % (auto) 0 % 04/09/21 05:43 Nucleated RBCs # 0.0 /100WBC 04/09/21 05:43 PT 13.20 SECONDS (12.1-14.9) 04/07/21 16:07 INR 0.97 (0.8-1.2) 04/07/21 16:07 APTT 28.8 SECONDS (23.9-36.7) 04/07/21 16:07 Fibrinogen 1414 mg/dL (174-498) H 04/07/21 16:07 D-Dimer 0.62 ug/mIFEU (0-0.59) H 04/09/21 05:43 Specimen Type Arterial 04/07/21 16:49 Sample Site Radial, right 04/07/21 16:49 ABG pH 7.40 (7.35-7.45) 04/07/21 16:49 ABG pCO2 51.8 mmHg (35-45) H 04/07/21 16:49 ABG pO2 75.2 mmHg (80.0-100.0) L 04/07/21 16:49 ABG HCO3 32.3 mmol/L (22-26) H 04/07/21 16:49 ABG Base Excess 5.9 mmol/L (-2.0-2.0) H 04/07/21 16:49 [place] Test Pos 04/07/21 16:49 Hematocrit 50.0 % (42-52) 04/07/21 16:49 O2 Delivery Device Nc 04/07/21 16:49 O2 Liters/Min 10.0 % 04/07/21 16:49 Etl Database Developer ID Ed 04/07/21 16:49 Sodium 135 mmol/L (136-145) L 04/09/21 05:43 Potassium 3.5 mmol/L (3.5-5.1) 04/09/21 05:43 Chloride 94 mmol/L (98-107) L 04/09/21 05:43 Carbon Dioxide 32 mmol/L (22-29) H 04/09/21 05:43 Anion Gap 12.5 (5-19) 04/09/21 05:43 BUN 25 mg/dL (6-20) H 04/09/21 05:43 Creatinine 0.8 mg/dL (0.7-1.2) 04/09/21 05:43 GFR Calculation 99.3 mL/min (90-130) 04/09/21 05:43 Glucose 268 mg/dL (65-115) H 04/09/21 05:43 POC Glucose 243 mg/dL (70-110) H 04/09/21 10:36 Estimat Average Glucose 209 04/07/21 22:30 Hemoglobin A1c 8.9 % (4.0-6.0) H 04/07/21 22:30 Calculated Osmolality 294 mOsm/kg (285-295) 04/09/21 05:43 Lactic Acid 1.7 mmol/L (0.5-2.2) 04/07/21 16:07 Calcium 9.5 mg/dL (8.5-10.5) 04/09/21 05:43 Phosphorus 2.7 mg/dL (2.5-4.5) 04/09/21 05:43 Magnesium 2.1 mg/dL (1.7-2.3) 04/09/21 05:43 Total Bilirubin 0.2 mg/dL (0.15-1.2) 04/09/21 05:43 AST 24 U/L (0-40) 04/09/21 05:43 ALT 25 U/L (0-41) 04/09/21 05:43 Alkaline Phosphatase 142 IU/L (40-130) H 04/09/21 05:43 Lactate Dehydrogenase 322 U/L (135-225) H 04/07/21 16:07 Creatine Kinase 132 U/L (39-308) 04/07/21 16:07 Troponin T Gen 5 ng/L 76 ng/L (0-15) H 04/07/21 16:07 Troponin T Baseline 50 ng/L (0-15) H 04/07/21 22:30 Troponin T 120 Minute 41.47 ng/L (0-15) H 04/08/21 01:20 Delta Troponin T -8.53 ABS# (0-10) L 04/08/21 01:20 Troponin T Hi Sens 6Hr 37.31 ng/L (0-15) H 04/08/21 04:41 Troponin T Hi Sens 6Hr Delta -12.69 ng/L (0-12) L 04/08/21 04:41 C-Reactive Protein 60.7 mg/L (0.0-4.9) H 04/09/21 05:43 NT-Pro-B Natriuret Pep 92 pg/mL (0-125) 04/08/21 04:41 Total Protein 6.3 g/dL (6.6-8.7) L 04/09/21 05:43 Albumin 3.0 g/dL (3.5-5.2) L 04/09/21 05:43 Globulin 3.3 g/dL (1.3-4.6) 04/09/21 05:43 Procalcitonin 0.28 ng/mL (0-0.5) 04/08/21 04:41 TSH 0.36 uIU/mL (0.27-4.20) 04/08/21 04:41 Coronavirus 229E (PCR) Not detected (NOT DETECT) 04/07/21 21:47 Influenza Type A Ag Negative (Negative) 04/08/21 00:15 Influenza Type B Ag Negative (Negative) 04/08/21 00:15 SARS-CoV-2 (PCR) Detected (NOT DETECT) A 04/07/21 21:47 SARS-CoV-2 RNA (RT-PCR) Cancelled 04/07/21 22:00 Vitals Last Vital Signs Temp 97.7 F 04/09/21 04:00 Pulse 78 04/09/21 10:01 Resp 16 04/09/21 10:01 BP 135/77 04/09/21 04:00 Pulse Ox 94 04/09/21 10:01 Discharge Plan Discharge Patient Disposition: Home Condition: Stable Prescriptions: New cefdinir 300 mg capsule 300 mg PO BID 5 Days Qty: 10 0RF azithromycin 500 mg tablet 500 mg PO DAILY 5 Days Qty: 5 0RF benzonatate 100 mg Capsule 200 mg PO TID PRN (Reason: Cough) Qty: 90 0RF metformin 500 mg tablet 500 mg PO BID Qty: 60 0RF (DME) diabetic supplies, miscellan. Misc See Rx Instructions .Route Qty: 60 3RF Rx Instructions: Glucometer and 60 strips Continued albuterol sulfate [Proventil HFA] 90 mcg/actuation HFA aerosol inhaler 2 puff INHALATION Q6H PRN (Reason: SOB) 0RF atorvastatin 40 mg tablet 40 mg PO DAILY 0RF Brilinta 90 mg tablet 90 mg PO BID 0RF gemfibrozil 600 mg tablet 600 mg PO BID 0RF amlodipine 10 mg tablet 10 mg PO DAILY 90 Days Qty: 90 3RF potassium chloride 8 mEq capsule, extended release 8 meq PO DAILY 30 Days Qty: 30 5RF carvedilol 25 mg tablet 25 mg PO BID Qty: 60 5RF Rx Instructions: must administer with a meal/food fluticasone propionate 220 mcg/actuation Hfa Aerosol Inhaler 2 puff INHALATION BID 0RF omeprazole 40 mg Capsule,Delayed Release(Dr/Ec) 40 mg PO DAILY 0RF Held chlorthalidone 25 mg tablet 25 mg PO DAILY 30 Days Qty: 30 5RF Hold Instructions: Resume on 04/15/21. losartan 100 mg tablet 100 mg PO DAILY Qty: 90 3RF Hold Instructions: Resume on 04/15/21. Discharge Orders: Discharge Order (Routine); Ordered 04/09/21 Ordered By: Domenico Terrazas Other Ambulatory Orders: Request for MCA (Routine) Timeframe: 1 Day Facility: [facility] - Location: [facility] Ordered By: Jordyn Pope DME: Oxygen (Order) Location: None Selected Ordered By: Domenico Terrazas Referrals: Veronica Valente FNP [Nurse Practitioner] - 2 weeks Trinidad,DIEGO Choi [Primary Care Provider] - 4-7 days Discharge Diet: Advance as tolerated and Diabetic Discharge Activity: Increase activity as tolerated and Oxygen as instructed Patient Instructions: Diabetes and Diet, Coronary Artery Disease (GEN), Acute Kidney Injury (GEN), Using Oxygen at Home (GEN), Hypoxia (GEN), Type 2 Diabetes Management for Adults (GEN), COVID-19 (Coronavirus Disease 2019) (ED) Activity Restrictions/Additional Instructions: Come back to the emergency room if your symptoms worsen, have any shortness of breath, fever/chills, dehydration, inability tolerate food or drinks, any difficulty breathing, or any new or concerning complaints. Please return the emergency room if your pulse ox reads less than 88%. Please discuss with your primary provider referral for stress testing once you recover from pneumonia 2 closer assess for coronary artery disease. Hold losartan and chlorthalidone over the next week due to acute kidney injury noted on presentation. At your appointment with primary provider, please have them reassess your kidney function. Avoid any NSAIDs like ibuprofen, Aleve, etc. Please follow up with your primary care doctor with regards to newly diagnosed diabetes. You are started on metformin. Please check blood glucose twice daily, write down values to bring to your appointment. Discharge Attestations Time Spent in Discharge Care*: greater than 30 min Quality Metrics Clinical Quality Measures [ Acute Myocardial Infaction { Clinical Trial Participant: Not a clinical trial participant; Contraindication to aspirin: Patient requests alternative treatment; Contraindication to statin: None; Statin prescribed;}] Coding Level of Care Code Acute g FW ID note Diagnoses Acute and chronic respiratory failure with hypoxia J96.21 NSTEMI (non-ST elevated myocardial infarction) I21.4 RICARDA (acute kidney injury) N17.9 Acute hypokalemia E87.6 Dyslipidemia (high LDL; low HDL) E78.5
--- NOTE | 2021-04-09 13:49 | PC.NURSE ---
IV removed intact. Patient tolerated well. Patient is A&Ox3. Respirations even and non-labored on 3 liters NC. Reviewed discharge instruction with patient including how to check his blood sugar and when to check his blood sugar. Discussed follow up appointments and new medications and how to take them and where to pick them up. Patient wheel chair to private car.
== END 2021-04-09 13:57 | disposition home or self-care (01) | DRG 177 ==
LOC: ER 17:41 → MEDSURG 18:56
PROVIDERS: Family Medicine; Admitting Provider Student in an Organized Health Care Education/Training Program; Emergency Provider Emergency Medicine; PCP Nurse Practitioner Family; Visit Provider Internal Medicine
DX: U07.1 COVID-19 (principal); J96.01 Acute respiratory failure with hypoxia; J12.82 Pneumonia due to coronavirus disease 2019; I21.A1 Myocardial infarction type 2; N17.9 Acute kidney failure, unspecified; E87.6 Hypokalemia; E78.5 Hyperlipidemia, unspecified; I25.10 Atherosclerotic heart disease of native coronary artery without angina pectoris; Z95.5 Presence of coronary angioplasty implant and graft; Z90.5 Acquired absence of kidney; Z85.528 Personal history of other malignant neoplasm of kidney; F17.220 Nicotine dependence, chewing tobacco, uncomplicated
CPT/HCPCS: 36415; 36416; 36600; 71045; 76770; 80053; 82550; 82803; 82962; 83036; 83605; 83615; 83735; 83880; 84100; 84145; 84443; 84484; 85025; 85378; 85384; 85610; 85730; 86140; 86403; 87040; 87070; 87205; 87449; 87635; 87804; 93005; 93306; 93970; 94640; 96365; 96366; 96367; 96372; 96375; 99285; J0456; J0696; J1100; J1650; J1815; J3480; J3490; J7030; J7050; J7626

== ENCOUNTER → 2021-05-16 10:50 | Outpatient (BNVA) | payer MEDICARE, MEDICAID, SELFPAY | PROVIDERS: PCP Nurse Practitioner Family; Visit Provider Nurse Practitioner Family | DX: I25.118 Atherosclerotic heart disease of native coronary artery with other forms of angina pectoris (principal); I10 Essential (primary) hypertension; Z72.0 Tobacco use | CPT/HCPCS: 99214 ==

== ENCOUNTER 2022-04-25 21:37 | Inpatient (IN) | payer MEDICARE, MEDICAID, SELFPAY ==
[2022-04-25 21:37] VITALS: BP 132/77; PULSE 80; RESP 22; TEMP 36.4; O2SAT 94; BMI 32.9
--- NOTE | 2022-04-25 21:44 | ED_ITS ---
HPI - Altered Mental Status General: Chief Complaint: Altered Mental Status Stated Complaint: AMS Time Seen by Provider: 04/25/22 21:44 History of Present Illness: Mr. Vidales is a 57-year-old gentleman with significant past medical history of cancer who has yet to initiate chemotherapy presenting to the emergency department for generalized weakness and possible episode of altered mental status. He reports perhaps being more short of breath and generally weak progressive throughout the day and had difficulty getting up. Family notes that he may have been slightly confused though he denies knowledge of such. EMS found the patient be hypoxemic, no baseline oxygen requirement. No other specific changes in health, exacerbating, or alleviating factors identified. Onset (ago): hour(s) Severity: moderate Consistency of symptoms: Constant Review of Systems General: Reports: 10 or more systems reviewed and unremarkable except in HPI and below PFSH ED PFSH: Medical History Atherosclerosis of coronary artery of [place] heart without angina pectoris Atherosclerotic heart disease of [place] coronary artery with other forms of angina pectoris Benign essential HTN Dyslipidemia (high LDL; low HDL) Gout H/O testicular mass History of renal cell cancer Right kidney mass Shortness of breath on exertion SOB (shortness of breath) Testicular cancer Surgical History History of kidney removal Hx of cholecystectomy Family History Father CAD (coronary artery disease) Stroke Mother CAD (coronary artery disease) Diabetes Family/Other Chronic kidney disease (CKD) Brother Suicide Other Hyperlipidemia Hypertension Denies family history of Clotting disorder Dementia Anesthesia complication Bleeding disorder Lung disease Cancer Social History Smoking and tobacco status: current every day smoker (chewing tobacco) sm okeless tobacco Smokeless tobacco user: chewing tobacco Alcohol intake: never Physical Exam Const: COMMON NORMALS: alert GENERAL APPEARANCE: cooperative, well developed and ill appearing HENMT: COMMON NORMALS: normocephalic and atraumatic HEAD & SCALP: normo cephalic and atraumatic Eye: COMMON NORMALS: conjunctivae normal CONJUNCTIVA: Yes conjunctivae normal SCLERA: sclerae normal Neck/C-Spine: COMMON NORMALS: supple GENERAL: Yes trachea midline Resp: EFFORT & INSPECTION: Yes tachypneic AUSCULTATION: diminished lung sounds on the left in the lower lung tristan Cardio: COMMON NORMALS: regular rate and regular rhythm RATE: regular rate RHYTHM: regular rhythm GI: COMMON NORMALS: Soft to palpation PALPATION: Yes Soft to palpation and No Tenderness to palpation present (GI) Extremity: GENERAL: Yes normal exam except as noted and Yes edema Neuro: COMMON NORMALS: CN's II-XII intact bilaterally, moves all extremities, no focal motor deficits and no sensory deficits noted; negative for gait normal SENSORIUM/ORIENTATION: Yes alert and No Orientation impaired Psych: COMMON NORMALS: mental status grossly normal and Normal thought process present THOUGHT PROCESS: Normal thought process present Skin: NARRATIVE SKIN EXAM: Left arm erythema posteriorly from the wrist to the elbow, tenderness and warmth consistent with cellulitis, there is a wound. Course Vital Signs: Vital signs: Vital Signs Temperature 97.6 F 04/29/22 11:39 Pulse Rate 66 04/29/22 13:31 Respiratory Rate 18 04/29/22 13:31 Blood Pressure 154/91 04/29/22 08:36 Pulse Oximetry 91 04/29/22 13:31 Oxygen Delivery Me thod 04/29/22 13:31 Oxygen Flow Rate 2 04/28/22 20:00 MDM - Altered Mental Status Medical Decision Making 57-year-old gentleman presenting with altered mental status and increased weakness. Patient is nontoxic and there is no focal neurologic deficits. EKG demonstrates sinus rhythm with nonspecific ST segment abnormalities, no STEMI. Labs with no leukocytosis, normal hemoglobin and platelet count. Metabolic panel with evidence of dehydration with elevated creatinine and hyponatremia. Initial troponin elevated with negative range 2-hour delta. Urinalysis with mild hematuria. Chest x-ray with bilateral lower lobe opacities. CT head with negative acute findings. CT imaging discussed with patient including concern for metastatic and locally recurrent cancer. Patient has new onset oxygen requirement and cellulitis. He requires inpatient admission for further assessment. The results of ED evaluation were discussed with the patient including plan for admission due to requirement for level of care not available if discharged to prevent significant worsening/deterioration. Patient agreeable with plan. Discussed with hospitalist service who was agreeable to admit patient. Medical Records I reviewed the patient's medical records. Lab Data I reviewed the patient's lab results. 04/25/22 22:03 04/25/22 22:03 Radiology Impressions Chest X-Ray 04/25/22 21:48 IMPRESSION: 1. Mild bilateral lower lung opacities, see above discussion. 2. Other findings discussed above. Head CT 04/25/22 23:27 IMPRESSION: 1. No acute intracranial hemorrhage or mass effect. 2. Mild diffuse white matter changes, likely from microvascular disease. 3. More focal/asymmetrical small area of low attenuation in the left posterior parietal white matter. Please see above details/discussion. 4. No definite acute infarct by CT, see above. 5. Paranasal sinus findings as discussed above. 6. Other findings discussed above. Chest/Abdomen/Pelvis CT 04/25/22 23:30 IMPRESSION: Numerous bilateral pulmonary nodules worrisome for pulmonary metastasis. Comparison with prior examinations suggested. IMPRESSION: 1. Large left retroperitoneal soft tissue mass worrisome for malignancy, possibly of adrenal origin. Further evaluation with PET CT scan, or needle biopsy recommended. 2. Right nephrectomy 3. Other non urgent findings as described above. COMMENTS: THIS REPORT CONTAINS FINDINGS THAT MAY BE CRITICAL TO PATIENT CARE. The findings were verbally communicated via telephone conference with Dr Rodriguez at 12:59 AM SUPERVISOR COMMERCIAL FISH HATCHERY on 04/26/2022. The findings were acknowledged and understood. Soft Tissue Ultrasound 04/26/22 02:58 IMPRESSION: No visible soft tissue abscess, details above. Venous Duplex 04/26/22 02:58 IMPRESSION: No evidence of acute left upper extremity DVT. Renal Ultrasound 04/26/22 20:46 IMPRESSION: 1. Prior right nephrectomy. 2. No hydronephrosis of the left kidney. 3. Other findings discussed above. Micro Laboratory Results WBC 8.1 10^3/uL (4.0-10.0) 04/25/22 22:03 RBC 4.00 10^6/uL (4.1-5.3) L 04/25/22 22:03 Hgb 12.1 g/dL (11.7-16.6) 04/25/22 22:03 Hct 37.7 % (42.0-52.0) L 04/25/22 22:03 MCV 94.3 fl (80-94) H 04/25/22 22:03 MCH 30.3 pg (28.0-34.0) 04/25/22 22:03 MCHC 32.1 g/dL (30.0-36.0) 04/25/22 22:03 RDW 14.7 % (12.1-15.1) 04/25/22 22:03 Plt Count 241 10^3/cmm (130-400) 04/25/22 22:03 MPV 9.6 fL (7.4-10.4) 04/25/22 22:03 Lymph % (Auto) Not Reportable 04/25/22 22:03 Boyle % (Auto) Not Reportable 04/25/22 22:03 Lymph # (Auto) Not Reportable 04/25/22 22:03 [place] # (Auto) Not Reportable 04/25/22 22:03 Total Counted 100 (0-100) 04/25/22 22:03 Atypical Lymphs % 1.0 % (0-5) 04/25/22 22:03 Absolute Neutrophils 7.5 10^3/cmm (1.4-6.5) H 04/25/22 22:03 Segmented Neutrophils 73 % 04/25/22 22:03 Abs Segm Neuts (Man) 5.9 10/cmm (1.6-7.1) 04/25/22 22:03 Band Neutrophils 19.0 % 04/25/22 22:03 Abs Band Neuts (Man) 1.5 10^3/cmm (0.0-1.2) H 04/25/22 22:03 Absolute Lymphocytes 0.2 10^3/cmm (1.2-3.4) L 04/25/22 22:03 Lymphocytes (Manual) 1 % 04/25/22 22:03 Monocytes (Manual) 3.0 % 04/25/22 22:03 Absolute Monocytes 0.2 10^3/cmm (0.1-0.6) 04/25/22 22:03 Eosinophils (Manual) 2 % 04/25/22 22:03 Absolute Eosinophils 0.1 10^3/cmm (0.0-0.7) 04/25/22 22:03 Basophils (Manual) Not Reportable 04/25/22 22:03 Metamyelocytes 1.0 % 04/25/22 22:03 Platelet Estimate Normal (Normal) 04/25/22 22:03 Polychromasia 1+ H 04/25/22 22:03 Anisocytosis 1+ H 04/25/22 22:03 Macrocytosis 1+ H 04/25/22 22:03 Sodium 131 mmol/L (136-145) L 04/25/22 22:03 Potassium 4.2 mmol/L (3.5-5.1) 04/25/22 22:03 Chloride 93 mmol/L (98-107) L 04/25/22 22:03 Carbon Dioxide 30 mmol/L (22-29) H 04/25/22 22:03 Anion Gap 12.2 (5-19) 04/25/22 22:03 BUN 34 mg/dL (6-20) H 04/25/22 22:03 Creatinine 1.6 mg/dL (0.7-1.2) H 04/25/22 22:03 GFR Calculation 44.5 mL/min (90-130) L 04/25/22 22:03 Glucose 111 mg/dL (65-115) 04/25/22 22:03 Calculated Osmolality 280 mOsm/kg (285-295) L 04/25/22 22:03 Lactic Acid 1.1 mmol/L (0.5-2.2) 04/25/22 22:39 Calcium 10.4 mg/dL (8.5-10.5) 04/25/22 22:03 Total Bilirubin 0.7 mg/dL (0.15-1.2) 04/25/22 22:03 AST 16 U/L (0-40) 04/25/22 22:03 ALT 35 U/L (0-41) 04/25/22 22:03 Alkaline Phosphatase 189 U/L (40-130) H 04/25/22 22:03 Troponin T Baseline 128 ng/L (0-15) H* 04/25/22 22:03 Troponin T 120 Minute 126.7 ng/L (0-15) H 04/26/22 00:05 Delta Troponin T -1.3 ABS# (0-10) L 04/26/22 00:05 C-Reactive Protein 446.1 mg/L (0.0-4.9) H 04/25/22 22:03 NT-Pro-B Natriuret Pep 1204 pg/mL (0-125) H 04/25/22 22:03 Total Protein 5.3 g/dL (6.6-8.7) L 04/25/22 22:03 Albumin 3.1 g/dL (3.5-5.2) L 04/25/22 22:03 Globulin 2.2 g/dL (1.3-4.6) 04/25/22 22:03 Procalcitonin 40.29 ng/mL (0-0.5) H 04/25/22 22:03 Urine Color Yellow (Yellow) 04/25/22 22:03 Urine Appearance Clear (CLEAR) 04/25/22 22:03 Urine pH 7 (5-7) 04/25/22 22:03 Ur Specific [place] 1.005 (1.005-1.030) 04/25/22 22:03 Urine Protein 3+ (Negative) H 04/25/22 22:03 Urine Glucose (UA) Norm (Normal) 04/25/22 22:03 Urine Ketones Negative (Negative) 04/25/22 22:03 Urine Blood 3+ (Negative) H 04/25/22 22:03 Urine Nitrate Negative (Negative) 04/25/22 22:03 Urine Bilirubin Neg (Negative) 04/25/22 22:03 Urine Urobilinogen Neg mg/dL (Negative) 04/25/22 22:03 Ur Leukocyte Esterase Negative (Negative) 04/25/22 22:03 Urine RBC 5-10 /hpf (0-2) H 04/25/22 22:03 Urine WBC 0-4 /hpf (0-5) H 04/25/22 22:03 Ur Squamous Epith Cells 0-4 /hpf (0-5) H 04/25/22 22:03 Amorphous Sediment Not Reportable 04/25/22 22:03 Urine Bacteria Trace /hpf (NONE) 04/25/22 22:03 Urine Mucus Trace /hpf 04/25/22 22:03 Influenza Type A Ag negative (Negative) 04/25/22 22:03 Influenza Type B Ag negative (Negative) 04/25/22 22:03 SARS-CoV-2 Ag (Rapid) Negative (Negative) 04/25/22 22:03 Discharge Plan Discharge Patient Disposition: Admitted As Inpatient Admit Provider: Kenji Rodriguez Clinical Impression: SOB (shortness of breath), Cellulitis, Hypoxia Condition: Stable Coding Level of Care Code ED 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
--- NOTE | 2022-04-25 21:48 | XRR_ITS ---
PROCEDURE INFORMATION: Exam: XR Chest Exam date and time: 04/25/2022 9:53 PM Age: 57 years old Clinical indication: Shortness of breath; Prior surgery; Surgery type: Stent; Additional info: SOB, weakness, today TECHNIQUE: Imaging protocol: Radiologic exam of the chest. Views: 1 view. COMPARISON: CR XR chest 1V portable [id number] 04/07/2021 4:14 PM FINDINGS: Tubes, catheters and devices: Left-sided Port-A-Cath present. Tip appears to lie in the SVC, at about the level of the archana. Lungs: Pulmonary vascularity appears upper normal/mildly prominent. No definite pulmonary edema. Poor inspiration somewhat limits evaluation, especially of the lung bases. Mild bilateral lower lung opacities, left greater than right. This could represent atelectasis and/or pneumonia. The findings are less prominent than on the comparison exam. Pleural spaces: No visible pneumothorax. No definite pleural fluid. Heart/Mediastinum: Mild moderate cardiomegaly, essentially stable. Bones/joints: No significant acute finding. XR/XR chest 1V portable [id number] IMPRESSION: 1. Mild bilateral lower lung opacities, see above discussion. 2. Other findings discussed above.
--- NOTE | 2022-04-25 21:49 | ECG_ITS ---
[facility] Test Date: 2022-04-25 Pat Name: Luis Vidales Department: Room: Gender: Male Med Surg Rn: : 1965 Requested By: Celso Titus Order Number: [id number] Vanda MD: Portia Bruce M.D. Measurements Intervals [place] Rate: 82 P: 25 [place]: 130 QRS: 5 QRSD: 91 T: 31 QT: 355 QTc: 416 Interpretive Statements SINUS RHYTHM MODERATE VOLTAGE CRITERIA FOR LVH, CONSIDER NORMAL VARIANT [MEETS CRITERIA IN ONE OF: R(aVL), S(V1), R(V5), R(V5/V6)+S(V1)] Compared to ECG 04/08/2021 03:57:38 Intraventricular conduction delay no longer present T-wave abnormality no longer present Electronically Signed On 04-25-2022 23:13:23 MULE DEVELOPER by Portia Bruce M.D. [id number]
[2022-04-25 22:23] VITALS: BP 104/73; PULSE 81; RESP 28; O2SAT 97
[2022-04-25 22:28] LABS: Hematocrit 37.7 % (42.0-52.0); Hemoglobin 12.1 g/dL (11.7-16.6); Mean Corpuscular HGB Conc 32.1 g/dL (30.0-36.0); Mean Corpuscular Hemoglobin 30.3 pg (28.0-34.0); Mean Corpuscular Volume 94.3 fl (80-94); Mean Platelet Volume 9.6 fL (7.4-10.4); Platelet Count 241 10^3/cmm (130-400); Red Cell Distribution Width 14.7 % (12.1-15.1); White Blood Count 8.1 10^3/uL (4.0-10.0)
[2022-04-25 22:30] VITALS: BP 108/68; PULSE 80; RESP 25; O2SAT 99
[2022-04-25 22:32] LABS: Add Urine Microscopic? YES; Bilirubin Urine Neg (Negative); Blood Urine 3+ (Negative); Glucose Urine UA Norm (Normal); Influenza A by IFA negative (Negative); Influenza B by IFA negative (Negative); Ketones Urine Negative (Negative); Leukocyte Esterase Urine Negative (Negative); Nitrate Urine Negative (Negative); Protein Urine 3+ (Negative); Specific Gravity, Urine 1.005 (1.005-1.030); Urine Appearance Clear (CLEAR); Urine Color Yellow (Yellow); Urobilinogen Urine Neg (Negative); pH Urine 7 (5-7)
[2022-04-25 22:37] LABS: Add Urine Culture? No; Bacteria Urine TRACE /hpf; Mucus Urine TRACE /hpf; Squamous Epithelial Cell Urine 0-4 /hpf (0-5); WBC Urine 0-4 /hpf (0-5)
[2022-04-25 22:39] LABS: SARS Covid-2 Antigen Negative (Negative)
[2022-04-25 22:53] LABS: Troponin(5th) Baseline 128 ng/L (0-15)
[2022-04-25 22:55] LABS: NT Pro B Type Natriuretic Pept 1204 pg/mL (0-125); Procalcitonin 40.29 ng/mL (0-0.5)
[2022-04-25 23:00] VITALS: BP 108/63; PULSE 78; RESP 29; O2SAT 99
[2022-04-25 23:01] LABS: Lactic Sepsis W/Reflex 1.1 mmol/L (0.5-2.2)
[2022-04-25 23:06] LABS: Alanine Aminotransferase 35 U/L (0-41); Albumin Level 3.1 g/dL (3.5-5.2); Alkaline Phosphatase 189 U/L (40-130); Anion Gap 12.2 (5-19); Aspartate Amino Transferase 16 U/L (0-40); Blood Urea Nitrogen 34 mg/dL (6-20); Calcium 10.4 mg/dL (8.5-10.5); Carbon Dioxide 30 mmol/L (22-29); Chloride 93 mmol/L (98-107); Globulin 2.2 g/dL (1.3-4.6); Glomerular Filtration Rate 44.5 mL/min (90-130); Glucose 111 mg/dL (65-115); Osmolality Calculated 280 mOsm/kg (285-295); Potassium 4.2 mmol/L (3.5-5.1); Sodium 131 mmol/L (136-145); Total Bilirubin 0.7 mg/dL (0.15-1.2); Total Protein 5.3 g/dL (6.6-8.7)
[2022-04-25 23:22] LABS: Total Cells Counted 100 (0-100)
[2022-04-25 23:23] LABS: C Reactive Protein 446.1 mg/L (0.0-4.9)
--- NOTE | 2022-04-25 23:27 | CTR_ITS ---
PROCEDURE INFORMATION: Exam: CT Head Without Contrast Exam date and time: 04/25/2022 11:45 PM Age: 57 years old Clinical indication: Weakness, extremity; Bilateral; Additional info: Weakness, HX cancer TECHNIQUE: Imaging protocol: Computed tomography of the head without contrast. Radiation optimization: All CT scans at this facility use at least one of these dose optimization techniques: automated exposure control; mA and/or kV adjustment per patient size (includes targeted exams where dose is matched to clinical indication); or iterative reconstruction. Other protocol: This patient has received [address] and 0 known cardiac nuclear medicine studies in the 12 months prior to the current study. COMPARISON: No relevant prior studies available. RADIATION DOSE METRICS: Total DLP (mGy-cm): 1228.45 FINDINGS: Brain: No acute intracranial hemorrhage or mass effect. There is mild decreased attenuation in the periventricular white matter, likely from microvascular disease. There is a more focal/asymmetrical small 8-9 mm area of low attenuation in the left posterior parietal white matter, (axial images # [id number], series 3). These may well represent an additional focal area of chronic white matter ischemia/infarct. Given the provided history of cancer, a metastatic focus or other neoplasm is not entirely excluded. Changes related to multiple sclerosis or other demyelinating process might also be considered. As clinically directed, MRI could be used for further evaluation. Eventual comparison with any available prior exams would also be helpful. No definite acute infarct by CT. MRI could be more sensitive/specific for acute infarct detection, as clinically directed. Cerebral ventricles: Ventricle size is normal for age. Paranasal sinuses: Moderate fluid and mucosal thickening in the left maxillary sinus. Included paranasal sinuses otherwise appear essentially clear. Mastoid air cells: No significant acute finding. Bones/joints: No definite acute skull fracture. Soft tissues: No significant acute finding. CT/CT head wo con* [id number] IMPRESSION: 1. No acute intracranial hemorrhage or mass effect. 2. Mild diffuse white matter changes, likely from microvascular disease. 3. More focal/asymmetrical small area of low attenuation in the left posterior parietal white matter. Please see above details/discussion. 4. No definite acute infarct by CT, see above. 5. Paranasal sinus findings as discussed above. 6. Other findings discussed above.
--- NOTE | 2022-04-25 23:30 | CTR_ITS ---
PROCEDURE INFORMATION: Exam: CT Chest Without Contrast; Diagnostic Exam date and time: 04/25/2022 11:49 PM Age: 57 years old Clinical indication: Other: Diarrhea; Shortness of breath; Additional info: HX cancer, weakness, diarrhea, SOB, new o2 req TECHNIQUE: Imaging protocol: Diagnostic computed tomography of the chest without contrast. Radiation optimization: All CT scans at this facility use at least one of these dose optimization techniques: automated exposure control; mA and/or kV adjustment per patient size (includes targeted exams where dose is matched to clinical indication); or iterative reconstruction. Other protocol: This patient has received [address] and 0 known cardiac nuclear medicine studies in the 12 months prior to the current study. COMPARISON: CR (CHEST, ) 04/25/2022 9:53 PM RADIATION DOSE METRICS: Total DLP (mGy-cm): 858.3 FINDINGS: Tubes, catheters and devices: Infusion port catheter is in place with its tip in the superior vena cava. Lungs: There are numerous small bilateral pulmonary nodules varying in size throughout both lungs measuring from 2 mm to 10 mm. These are worrisome for pulmonary metastasis. Comparison with prior examinations if available suggested. There are calcified granulomas in both lungs. Pleural spaces: Unremarkable. No pneumothorax. No pleural effusion. Heart: Unremarkable. No cardiomegaly. No pericardial effusion. Coronary arteries: There is moderate atherosclerotic calcification of the coronary arteries. Lymph nodes: There are small paratracheal lymph nodes but no mediastinal or hilar adenopathy. There are calcified hilar lymph nodes on the right in keeping with old granulomatous disease. Vasculature: There is bovine branching pattern to the aortic arch with the brachiocephalic and left common carotid artery arising from a common trunk. Diaphragm: There is chronic elevation of the left hemidiaphragm. Bones/joints: Unremarkable. No acute fracture. Soft tissues: Unremarkable. PROCEDURE INFORMATION: Exam: CT Abdomen And Pelvis Without Contrast Exam date and time: 04/25/2022 11:49 PM Age: 57 years old Clinical indication: Other: Diarrhea; Shortness of breath; Additional info: HX cancer, weakness, diarrhea, SOB, new o2 req TECHNIQUE: Imaging protocol: Computed tomography of the abdomen and pelvis without contrast. Radiation optimization: All CT scans at this facility use at least one of these dose optimization techniques: automated exposure control; mA and/or kV adjustment per patient size (includes targeted exams where dose is matched to clinical indication); or iterative reconstruction. Other protocol: This patient has received [address] and 0 known cardiac nuclear medicine studies in the 12 months prior to the current study. COMPARISON: US renal BI* [id number] 04/08/2021 6:29 AM RADIATION DOSE METRICS: Total DLP (mGy-cm): 428.2 FINDINGS: Limitations: The absence of intravenous contrast lessens the sensitivity of this study for solid organ abnormalities. Liver: There is no focal abnormality within the liver. Gallbladder and bile ducts: There has been a cholecystectomy. Pancreas: The pancreas is normal. Spleen: The spleen demonstrates punctate calcifications, consistent with remote granulomatous organism exposure. Adrenal glands: See Retroperitoneal space finding. Right adrenal gland is unremarkable Kidneys and ureters: There has been a right nephrectomy. There are multiple left renal collecting system calcifications. 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 There is no evidence of left hydronephrosis. There is no stone in the left ureter. Stomach and bowel: There is no evidence of colitis/diverticulitis. There is no evidence of intestinal obstruction. Appendix: A normal appendix is identified. Intraperitoneal space: There is no evidence of free intraperitoneal fluid. Retroperitoneal space: There is a large left retroperitoneal mass measuring 6.6 x 11.5 x 6.9 cm. This is located superior to the left kidney and inferior adjacent to the pancreas. This does not appear to be connected to either the kidney nor the pancreas. A normal left adrenal gland is not identified raising concern that this is a large mass originating in the left adrenal gland. Further evaluation such as with PET-CT scan or needle biopsy is recommended. Vasculature: The aorta demonstrates mild atherosclerotic calcification. There is no evidence of an abdominal aortic aneurysm. Lymph nodes: There is no evidence of lymphadenopathy. Urinary bladder: Unremarkable as visualized. Reproductive: Unremarkable as visualized. Bones/joints: The lumbar spine is normal. Mild there is mild wedging of T11 which appears chronic. Soft tissues: There is a large left inguinal hernia containing only fat. CT/[place] [id number] IMPRESSION: Numerous bilateral pulmonary nodules worrisome for pulmonary metastasis. Comparison with prior examinations suggested. IMPRESSION: 1. Large left retroperitoneal soft tissue mass worrisome for malignancy, possibly of adrenal origin. Further evaluation with PET CT scan, or needle biopsy recommended. 2. Right nephrectomy 3. Other non urgent findings as described above. COMMENTS: THIS REPORT CONTAINS FINDINGS THAT MAY BE CRITICAL TO PATIENT CARE. The findings were verbally communicated via telephone conference with Dr Rodriguez at 12:59 AM BEDSPREAD CUTTER on 04/26/2022. The findings were acknowledged and understood.
[2022-04-25 23:32] LABS: Absolute Eosinophils 0.1 10^3/cmm (0.0-0.7); Absolute Neutrophil 7.5 10^3/cmm (1.4-6.5); Absolute Segmented Neutrophil 5.9 10/cmm (1.6-7.1); Band Neutrophils Absolute 1.5 10^3/cmm (0.0-1.2); Eosinophils 2 %; Lymphocytes 1 %; Lymphocytes Absolute 0.2 10^3/cmm (1.2-3.4); Monocytes Absolute 0.2 10^3/cmm (0.1-0.6); Platelet Estimate Normal (Normal); Segmented Neutrophils 73 %
[2022-04-25 23:33] LABS: Anisocytosis 1+; Macrocytosis 1+; Polychromasia 1+
[2022-04-26] VITALS (14 sets, daily range): BP systolic 94–132; BP diastolic 59–84; PULSE 62–90; RESP 14–24; TEMP 36.4–37.3; O2SAT 93–99
[2022-04-26] MEDS: piperacillin-tazobactam 4.5 GM in sodium chloride 0.9% (plus) 50 ML IV
--- NOTE | 2022-04-26 00:05 | ECG_ITS ---
[facility] Test Date: 2022-04-26 Pat Name: Luis Vidales Department: Room: Gender: Male Commutator Undercutter: : 1965 Requested By: Celso Titus Order Number: [id number] Vanda MD: Addi Tracy M.D. Measurements Intervals [place] Rate: 73 P: -17 [place]: 117 QRS: 0 QRSD: 102 T: 21 QT: 371 QTc: 411 Interpretive Statements SINUS RHYTHM WITH SHORT [place] INTERVAL MODERATE VOLTAGE CRITERIA FOR LVH, CONSIDER NORMAL VARIANT [MEETS CRITERIA IN ONE OF: R(aVL), S(V1), R(V5), R(V5/V6)+S(V1)] Compared to ECG 04/25/2022 22:07:55 Short VA interval now present Electronically Signed On 04-26-2022 19:35:47 SEARCH ENGINE OPTIMIZER by Addi Tracy M.D. [id number]
[2022-04-26 01:21] LABS: Troponin 5 2HR Delta -1.3 ABS# (0-10)
[2022-04-26 01:24] LABS: Troponin 5 2HR 126.7 ng/L (0-15)
--- NOTE | 2022-04-26 02:13 | P.HP_ITS ---
Providers/Chief Complaint Admitting Physician: Kenji Rodriguez MD Primary Care Provider: Steph Trinidad APN Chief Complaint: AMS History of Present Illness Luis Vidales is a 57 year old male with past medical history of renal cell carcinoma status post right nephrectomy , hypertension coronary artery disease, testicular mass, COVID-19 pneumonia, came in today with chief complaint of g eneralized weakness, predominantly in bilateral lower extremity, having difficulty with ambulation. There was also some concern regarding possible confusion at home.He was also complaining of some shortness of breath.Denied any chest pain, fever cough, nausea vomiting, abdominal pain.When I interacted with the patient, he was not in acute distress, was responding to questions appropriately. Was not able to appreciate any significant confusion. CT chest abdomen and pelvis with contrast has shown: Multiple b/l pulmonary nodules, concerning for possible pulmonary metastasis, large left retroperi toneal soft tissue mass concerning for malignancy, with possible adrenal origin, right nephrectomy. CT head without contrast no acute intra cranial pathology. Pertinent labs; WBC 8.1, H&H 12/37 , PLT : 241 , sodium 131, serum potassium : 4.2 , BUN 34, serum creatinine 1.6 Troponin trend: 128-126 , proBNP 1204 Procalcitonin 40.29 Urinalysis results appreciated, influenza negative rapid COVID-negative Review of Systems General: Reports: 10 or more systems reviewed and unremarkable except in HPI and below Const: Denies: fever(s), chills, body aches or diaphoresis Card: Denies: palpitations, edema, swelling of feet/ankles, dyspnea on exertion, orthopnea or leg pain with exertion Resp: Denies: dyspnea, productive cough, wheezing or pain on inspiration GI: Denies: abdominal pain, nausea, vomiting, diarrhea or constipation : Denies: flank pain or difficulty urinating Musc: Denies: back pain, extremity pain or extremity swelling Neuro: Reports: difficulty walking; Denies: headache(s) or confusion Medications/Allergies Home Medications Medication Instructions Recorded Confirmed Last Taken Type albuterol sulfate 90 mcg/actuation 2 puff inhalation Q6H PRN SOB 09/20/19 05/16/21 Unknown History aerosol inhaler (Proventil HFA) atorvastatin 40 mg tablet 40 mg PO DAILY 09/20/19 05/16/21 Unknown History gemfibrozil 600 mg tablet 600 mg PO BID 07/10/20 05/16/21 Unknown History losartan 100 mg tablet 100 mg PO DAILY #90 tabs 08/20/20 05/16/21 Unknown Rx fluticasone propionate 220 2 puff inhalation BID 04/08/21 05/16/21 Unknown History mcg/actuation HFA aerosol inhaler omeprazole 40 mg capsule,delayed 40 mg PO DAILY 04/08/21 05/16/21 Unknown History release benzonatate 100 mg capsule 200 mg PO TID PRN Cough #90 caps 04/09/21 05/16/21 Unknown Rx diabetic supplies, miscellan. #60 ea 04/09/21 05/16/21 Unknown Rx metformin 500 mg tablet 500 mg PO BID #60 tabs 04/09/21 05/16/21 Unknown Rx clopidogrel 75 mg tablet 75 mg PO DAILY #90 tabs 05/21/21 Unknown Rx amlodipine 10 mg tablet 10 mg PO DAILY 90 days #90 tabs 07/01/21 Unknown Rx potassium chloride 8 mEq 8 meq PO DAILY #90 caps 08/06/21 Unknown Rx capsule,extended release chlorthalidone 25 mg tablet 25 mg PO DAILY 30 days #30 tabs 08/08/21 Unknown Rx carvedilol 25 mg tablet 25 mg PO BID #180 tabs 08/19/21 Unknown Rx Allergies Allergy/AdvReac Type Severity Reaction Status Date / Time furosemide [From Lasix] Allergy Unknown Verified 04/25/22 23:54 iodine Allergy ADR-Halluci Verified 04/25/22 23:54 nating isosorbide Allergy headache Verified 08/14/21 07:06 tramadol Allergy unk Verified 08/14/21 07:06 PFSH Acute PFSH: Medical History Atherosclerosis of coronary artery of [place] heart without angina pectoris Atherosclerotic heart disease of [place] coronary artery with other forms of angina pectoris Benign essential HTN Dyslipidemia (high LDL; low HDL) Gout H/O testicular mass History of renal cell cancer Right kidney mass Shortness of breath on exertion SOB (shortness of breath) Testicular cancer Surgical History History of kidney removal Hx of cholecystectomy Family History Father CAD (coronary artery disease) Stroke Mother CAD (coronary artery disease) Diabetes Family/Other Chronic kidney disease (CKD) Brother Suicide Other Hyperlipidemia Hypertension Denies family history of Clotting disorder Dementia Anesthesia complication Bleeding disorder Lung disease Cancer Social History Smoking and tobacco status: current every day smoker (chewing tobacco) smokeless tobacco Smokeless tobacco user: chewing tobacco Alcohol intake: never Vitals/I&O/Wt Last Vital Signs Temp 97.9 F 04/26/22 01:30 Pulse 70 04/26/22 01:30 Resp 22 H 04/26/22 01:30 BP 126/80 04/26/22 01:30 Pulse Ox 97 04/26/22 01:30 O2 Del Method 04/26/22 01:33 O2 Flow Rate 2 04/26/22 01:30 04/25/22 04/25/22 04/26/22 14:59 22:59 06:59 Intake Total 550 / 550 Balance 550 / 550 Weight last 48 hrs Weight 92.533 kg Physical Exam HENMT: COMMON NORMALS: normocephalic and atraumatic HEAD & SCALP: normocephalic and atraumatic Resp: COMMON NORMALS: normal respiratory effort, No retractions, No use of accessory muscles and clear to auscultation bilaterally EFFORT & INSPECTION: Yes symmetric chest movement AUSCULTATION: clear to auscultation bilaterally Cardio: COMMON NORMALS: regular rate, regular rhythm, S1 normal heart sound pr esent, S2 normal heart sound present, No gallops present (Cardio), No murmurs present (Cardio), No rub (Cardio) and Peripheral pulses 2+ throughout RATE: regular rate RHYTHM: regular rhythm HEART SOUNDS: S1 normal heart sound present and S2 normal heart sound present PERIPHERAL PULSES: Peripheral pulses 2+ throughout GI: COMMON NORMALS: Normal to inspection, nondistended, normoactive bowel sounds present, Soft to palpation, non-tender, No hepatosplenomegaly present and no masses AUSCULTATION: Yes normoactive bowel sounds PALPATION: Yes Soft to palpation and Yes No hepatosplenomegaly present RECTAL EXAM: Yes deferred Extremity: COMMON NORMALS: no clubbing, cyanosis or edema and no pedal edema NARRATIVE EXTREMITY EXAM: Left arm redness Data 04/25/22 22:03 04/25/22 22:03 Micro: Microbiology 04/25/22 22:15 Blood Culture - Preliminary Blood SPECIMEN COLLECTED 04/25/22 22:03 Blood Culture - Preliminary Blood SPECIMEN COLLECTED A&P Assessment and plan (1) Benign essential HTN: (2) Hyponatremia: (3) Elevated troponin: (4) Acute kidney injury superimposed on CKD: (5) Elevated procalcitonin: (6) Retroperitoneal mass: (7) Hypoxia: Plan 57 year old male with past medical history of renal cell carcinoma status post right nephrectomy , hypertension coronary artery disease, testicular mass, COVID-19 pneumonia, came in today with chief complaint of generalized weakness, predominantly in bilateral lower extremity, having difficulty with ambulation. There was also some concern regarding possible confusion at home.He was also complaining of some shortness of breath.Denied any chest pain, fever cough, nausea vomiting, abdominal pain.When I interacted with the patient, he was not in acute distress, was responding to questions appropriately. Was not able to appreciate any significant confusion. Assessment: Elevated troponin: Possibly type II NSTEMI: Patient has denied any significant chest pain. If needed 2D echo can be done, for now I will avoid doing echo. Continue carvedilol Plavix. RICARDA on CKD: Likely secondary to dehydration Baseline serum creatinine is unknown Admission serum creatinine is 1.6 Monitor BMP Continue IV hydration Monitor intake output charting Avoid nephrotoxic's Mild hypovolemic hyponatremia Continue gentle IV hydration with normal saline Monitor serum sodium Possible altered mental status at home: Could be secondary to dehydration, RICARDA Left upper extremity cellulitis: Left upper extremity Doppler vein to rule out DVT Left lower extremity soft tissues ultrasound for any possible underlying abscess. Markedly elevated procalcitonin: Could be secondary to underlying malignancy, or possibly from cellulitis Follow blood culture Urine culture Follow repeat procalcitonin Currently on Zosyn. For now will empirically keep him on levofloxacin IV 750 daily. Dehydration with generalized weakness: Continue gentle IV hydration PT on board Monitor orthostatic vital sign Retroperitoneal mass: CT chest abdomen and pelvis with contrast has shown: Multiple b/l pulmonary nodules, concerning for possible pulmonary metastasis, large left retroperitoneal soft tissue mass concerning for malignancy, with possible adrenal origin, right nephrectomy. Patient will need outpatient oncology follow-up versus inpatient. Biopsy if needed Patient see oncology as outpatient Bilateral multiple pulmonary nodules concerning for possible metastatic disease. History of renal cell carcinoma status post right nephrectomy Hypoxia: Currently requiring minimal supplemental oxygen We will try and wean off nasal cannula, CODE STATUS: Full code DVT prophylaxis on Lovenox Attestations Medical Necessity Statement*: Patient is still in hospital management of elevated troponin generalized weakness,ricarda, cellulitis dehydration. Coding Level of Care Code 59289 Diagnoses Benign essential HTN I10 Hyponatremia E87.1 Elevated troponin R77.8 Acute kidney injury superimposed on CKD N17.9; N18.9 Elevated procalcitonin R79.89 Retroperitoneal mass R19.00 Hypoxia R09.02
[2022-04-26] MEDS: enoxaparin 40 mg/0.4 mL Syringe SUBCUT (02:24)
[2022-04-26] MEDS: sodium chloride 0.9% 1,000 ML 75 ML IV (02:24)
--- NOTE | 2022-04-26 02:58 | USR_ITS ---
PROCEDURE INFORMATION: Exam: US Left Non-Vascular Joint or Other Extremity Structure Exam date and time: 04/26/2022 3:14 AM Age: 57 years old Clinical indication: Edema is generalized; Arm, lower; Left; Additional info: Lt upper extremity to R/O abscess TECHNIQUE: Imaging protocol: Left US joint or other nonvascular extremity structure or structures. Real-time ultrasound with image documentation. Limited study. Exam focused on the upper extremity in the region of clinical interest. COMPARISON: No relevant prior studies available. FINDINGS: Targeted scanning performed in the area of clinical concern in the left forearm. There appears to be some soft tissue edema present. No visible well-defined fluid collection to suggest an abscess at this time. US/US soft tissue/extremity [id number] IMPRESSION: No visible soft tissue abscess, details above.
--- NOTE | 2022-04-26 02:58 | USR_ITS ---
PROCEDURE INFORMATION: Exam: US Duplex Left Upper Extremity Veins, Limited Exam date and time: 04/26/2022 3:23 AM Age: 57 years old Clinical indication: Edema, localized; Upper extremity, left; Additional info: R/O dvt TECHNIQUE: Imaging protocol: Real-time duplex ultrasound of the Left extremity with 2-D arzola scale, color Doppler flow and spectral waveform analysis including responses to compression and other maneuvers (when performed) with image documentation. Limited exam focused on the left upper extremity veins. COMPARISON: No relevant prior studies available. FINDINGS: Evaluated veins include the left internal jugular, subclavian, axillary, brachial, basilic, cephalic, radial, and ulnar veins. No visible clot in the included veins. The included veins appear normally compressible. Duplex Doppler evaluation demonstrates flow in the evaluated veins. US/[place] [id number] IMPRESSION: No evidence of acute left upper extremity DVT.
--- NOTE | 2022-04-26 04:15 | USCV_ITS ---
Flash Luis Age: 57 Gender: M : 1965 Exam Date: 04/26/2022 11:39 Ordering Phys: Kenji Rodriguez MD Technologist: DEBBIE Exam Location: [facility] [place] Indication: elevated troponin BP: / HR: 58 Rhythm: Sinus Technical Quality: Adequate MEASUREMENTS (Male / Female) Normal Values 2D ECHO LV Diastolic Diameter PLAX 5.1 cm 4.2 - 5.9 / 3.9 - 5.3 cm LV Systolic Diameter PLAX 2.9 cm IVS Diastolic Thickness 0.8 cm 0.6 - 1.0 / 0.6 - 0.9 cm IVS Systolic Thickness 1.1 cm LVPW Diastolic Thickness 0.7 cm 0.6 - 1.0 / 0.6 - 0.9 cm LVPW Systolic Thickness 1.2 cm LVOT Diameter 2.5 cm LV Ejection Fraction 2D Teich 74.6 % LV Ejection Fraction MOD 2C 42.5 % LV Ejection Fraction 2C AL 44.2 % LA Diameter 4.1 cm IVC Diameter 2.0 cm M-MODE Aortic Annulus Diameter 3.0 cm LA Ao Ratio MM 1.6 MV E Point Septal Separation 1.2 cm DOPPLER AV Peak Velocity 137.0 cm/s LVOT Peak Velocity 99.0 cm/s AV Area Cont Eq vti 3.7 cm squared AV Area Cont Eq pk 3.6 cm squared MV Area PHT 3.9 cm squared Mitral E to A Ratio 1.0 MV E' Velocity 44.0 cm/s Mitral E to MV E' Ratio 10.9 Mitral E to LV E' Lateral Ratio 10.4 Mitral E to LV E' Septal Ratio 11.6 TR Peak Velocity 256.7 cm/s TR Peak Gradient 26.4 mmHg TV Peak E Velocity 56.0 cm/s Right Atrial Pressure 6.0 mmHg Pulmonary Artery Systolic Pressu 32.4 mmHg PV Peak Velocity 99.0 cm/s FINDINGS Left Ventricle Normal left ventricular size and ejection fraction of 60%, visual. No gross wall motion normalities Right Ventricle Normal size ejection fraction Right Atrium Possibly of normal size Left Atrium Appears to be of normal size Mitral Valve Mild mitral valve regurgitation. Aortic Valve Thickened aortic valve. Tricuspid Valve Mild to moderate tricuspid valve regurgitation. Pulmonic Valve Pulmonic valve not well visualized. Pericardium No pericardial effusion. Aorta Normal aortic annulus size. IVC Normal inferior vena cava. CONCLUSIONS Normal left ventricular size and ejection fraction of 60%, (visual.). No gross wall motion normalities. Thickened aortic valve. Mild to moderate tricuspid valve regurgitation. Mild mitral valve regurgitation. Estimated pulmonary artery peak systolic pressure 32 mm of Hg. There is no pericardial effusion. There are no intracardiac masses. Comparison with the previous study is difficult because of the difference in the technical quality. Dr Addi Tracy MD [facility] (Electronically Signed) Final Date: 26 April 2022 13:06 S
[2022-04-26 04:43] LABS: Basophils % 0.3 %; Eosinophils # 0.1 10^3/uL (0.0-0.8); Eosinophils % 0.9 %; Hematocrit 33.5 % (42.0-52.0); Hemoglobin 10.7 g/dL (11.7-16.6); Lymphocytes # 0.2 10^3/uL (0.8-4.8); Lymphocytes % 2.3 %; Mean Corpuscular HGB Conc 31.9 g/dL (30.0-36.0); Mean Corpuscular Hemoglobin 30.2 pg (28.0-34.0); Mean Corpuscular Volume 94.6 fl (80-94); Mean Platelet Volume 9.7 fL (7.4-10.4); Monocytes # 0.2 10^3/uL (0.2-0.9); Monocytes % 2.6 %; Neutrophils # 6.46 10^3/uL (1.8-7.7); Neutrophils % 91.8 %; Nucleated Red Blood Cells % 0 %; Platelet Count 214 10^3/cmm (130-400); Red Blood Count 3.54 10^6/uL (4.1-5.3); Red Cell Distribution Width 14.6 % (12.1-15.1)
[2022-04-26 05:07] LABS: Troponin 5 6HR Delta -15.8 ng/L (0-12)
[2022-04-26 05:10] LABS: Troponin 5 6HR 112.2 ng/L (0-15)
[2022-04-26 05:18] LABS: Blood Urea Nitrogen 33 mg/dL (6-20); Calcium 9.4 mg/dL (8.5-10.5); Carbon Dioxide 27 mmol/L (22-29); Chloride 95 mmol/L (98-107); Glomerular Filtration Rate 41.5 mL/min (90-130); Glucose 114 mg/dL (65-115); Osmolality Calculated 280 mOsm/kg (285-295); Sodium 131 mmol/L (136-145)
[2022-04-26] MEDS: piperacillin-tazobactam 3.375 GM in sodium chloride 0.9% (plus) 50 ML IV ×2 (05:26→15:47)
[2022-04-26 05:39] LABS: Slide Review Slide Review Perform
[2022-04-26 05:43] LABS: Procalcitonin 34.78 ng/mL (0-0.5)
[2022-04-26 06:29] LABS: Glucose Point of Care 119 mg/dL (70-110)
[2022-04-26 07:27] LABS: Glucose Point of Care 105 mg/dL (70-110)
[2022-04-26] MEDS: amlodipine 10 mg Tablet PO (09:14)
[2022-04-26] MEDS: clopidogrel 75 mg Tablet PO (09:14)
[2022-04-26] MEDS: pantoprazole DR 40 mg Tablet PO (09:14)
[2022-04-26] MEDS: carvedilol 25 mg Tablet PO ×2 (09:14→18:08)
[2022-04-26] MEDS: atorvastatin 40 mg Tablet PO (09:14)
[2022-04-26] MEDS: budesonide 0.5 mg/2 mL Neb INHALATION ×2 (11:02→20:02)
[2022-04-26] MEDS: ipratropium-albuterol 3 mL Neb INHALATION (11:02)
[2022-04-26 12:03] LABS: Glucose Point of Care 153 mg/dL (70-110)
[2022-04-26] MEDS: insulin lispro 100 unit/1 mL SUBCUT (12:51)
--- NOTE | 2022-04-26 13:21 | P.CONIM_ITS ---
Providers/Reason For Consult Consulting Physician/Specialty*: HOWARD Tracy MD/cardiology Reason for Consult*: Patient with elevated troponin T/altered mental status/fatigue Requesting Physician: Dr. Terrazas Attending Physician: Domenico Terrazas Primary Care Provider: Steph Trinidad APN History of Present Illness History of Present Illness Luis Vidales is a 57 year old male with stage IV renal cell carcinoma with mets into lungs, possible brain he is admitted to the hospital with complaints of generalized weakness and altered mental status. He was found to have elevated troponin T. Cardiology consult is requested for further cardiac evaluation recommendations. This patient is not able to give any detailed history. According to family, he has not been feeling well for the last 3 days or so. He also was found to be co nfused and having difficulty recognizing many of the family members. He has no fever or chills. He was found to be somewhat short of breath with some labored breathing. No fever or chills. No cough. He has a history of atherosclerotic heart diseas and had a PCI of the circumflex artery several years ago. He had a cardiac catheterization in 2019 and was found to have patent stented segment of the circumflex artery. He had a mild to moderate disease in the other vessels. He is known to have allergic reaction to the iodine, furosemide and nitrates. Review of Systems Narrative: CONSTITUTIONAL: Generalized weak/fatigue EYES: No blurring of vision or other visual disturbances lately. ENT: No hoarseness of voice, auditory disturbances or sore throat. CARDIOVASCULAR: As mentioned above. RESPIRATORY: Respiratory difficulty GASTROINTESTINAL: No hematemesis or melena. GENITOURINARY: Advanced renal cell carcinoma as mentioned above INTEGUMENTARY: No skin rashes or history of skin cancer. NEURO: Altered mental status as mentioned above PSYCHIATRIC: No history of psychosis or major depression. HEMATOLOGIC: No bleeding disorders or significant anemia. ENDOCRINE: No history of polyuria or polydipsia. MUSCULOSKELETAL: No recent joint pain or swelling. ALLERGY/IMMUNOLOGY: As mentioned above. Medications/Allergies Home Medications Medication Instructions Recorded Confirmed Last Taken Type albuterol sulfate 90 mcg/actuation 2 puff inhalation Q6H PRN SOB 09/20/19 05/16/21 Unknown History aerosol inhaler (Proventil HFA) atorvastatin 40 mg tablet 40 mg PO DAILY 09/20/19 05/16/21 Unknown History gemfibrozil 600 mg tablet 600 mg PO BID 07/10/20 05/16/21 Unknown History losartan 100 mg tablet 100 mg PO DAILY #90 tabs 08/20/20 05/16/21 Unknown Rx fluticasone propionate 220 2 puff inhalation BID 04/08/21 05/16/21 Unknown History mcg/actuation HFA aerosol inhaler omeprazole 40 mg capsule,delayed 40 mg PO DAILY 04/08/21 05/16/21 Unknown History release benzonatate 100 mg capsule 200 mg PO TID PRN Cough #90 caps 04/09/21 05/16/21 Unknown Rx diabetic supplies, miscellan. #60 ea 04/09/21 05/16/21 Unknown Rx metformin 500 mg tablet 500 mg PO BID #60 tabs 04/09/21 05/16/21 Unknown Rx clopidogrel 75 mg tablet 75 mg PO DAILY #90 tabs 05/21/21 Unknown Rx amlodipine 10 mg tablet 10 mg PO DAILY 90 days #90 tabs 07/01/21 Unknown Rx potassium chloride 8 mEq 8 meq PO DAILY #90 caps 08/06/21 Unknown Rx capsule,extended release chlorthalidone 25 mg tablet 25 mg PO DAILY 30 days #30 tabs 08/08/21 Unknown Rx carvedilol 25 mg tablet 25 mg PO BID #180 tabs 08/19/21 Unknown Rx Allergies Allergy/AdvReac Type Severity Reaction Status Date / Time furosemide [From Lasix] Allergy Unknown Verified 04/25/22 23:54 iodine Allergy ADR-Halluci Verified 04/25/22 23:54 nating isosorbide Allergy headache Verified 08/14/21 07:06 tramadol Allergy unk Verified 08/14/21 07:06 Current Medications Generic Name Dose Route Start Last Admin Trade Name Freq PRN Reason Stop Dose Admin Albuterol/Ipratropium 3 ml 04/26/22 02:11 04/26/22 11:02 Ipratropium-Albuterol 3 Ml Neb INHALATION 3 ml Q6H PRN Administration SHORTNESS OF BREATH Amlodipine Besylate 10 mg 04/26/22 09:00 04/26/22 09:14 Amlodipine 10 Mg Tablet PO 10 mg DAILY JESSICA Administration Atorvastatin Calcium 40 mg 04/26/22 09:00 04/26/22 09:14 Atorvastatin 40 Mg Tablet PO 40 mg DAILY JESSICA Administration Budesonide 0.5 mg 04/26/22 08:00 04/26/22 11:02 Budesonide 0.5 Mg/2 Ml Neb INHALATION 0.5 mg BID.RESPIRATORY JESSICA Administration Carvedilol 25 mg 04/26/22 09:00 04/26/22 09:14 Carvedilol 25 Mg Tablet PO 25 mg BID JESSICA Administration Clopidogrel Bisulfate 75 mg 04/26/22 09:00 04/26/22 09:14 Clopidogrel 75 Mg Tablet PO 75 mg DAILY JESSICA Administration Enoxaparin Sodium 40 mg 04/26/22 02:15 04/26/22 02:24 Enoxaparin 40 Mg/0.4 Ml Syringe SUBCUT 40 mg Q24H JESSICA Administration Sodium Chloride 1,000 mls @ 75 mls/hr 04/26/22 02:15 04/26/22 02:24 Sodium Chloride 0.9% IV 75 mls/hr .[id number] JESSICA Administration Piperacillin Sod/Tazobactam 50 mls @ 12.5 mls/hr 04/26/22 06:00 04/26/22 05:26 Sod 3.375 gm/ Sodium Chloride IV 12.5 mls/hr Q8H JESSICA Administration Protocol Insulin Human Lispro 0 unit 04/26/22 08:00 04/26/22 12:51 Insulin Lispro 100 Unit/1 Ml SUBCUT 2 unit TIDWM JESSICA Administration Protocol Pantoprazole Sodium 40 mg 04/26/22 09:00 04/26/22 09:[address] 40 Mg Tablet PO 40 mg DAILY JESSICA Administration PFSH Acute PFSH: Medical History (Updated 04/26/22 @ 13:43 by Addi Tracy MD) Atherosclerosis of coronary artery of [place] heart without angina pectoris Atherosclerotic heart disease of [place] coronary artery with other forms of angina pectoris Benign essential HTN Dyslipidemia (high LDL; low HDL) Gout H/O testicular mass History of renal cell cancer Right kidney mass Shortness of breath on exertion SOB (shortness of breath) Testicular cancer Surgical History History of kidney removal Hx of cholecystectomy Family History Father CAD (coronary artery disease) Stroke Mother CAD (coronary artery disease) Diabetes Family/Other Chronic kidney disease (CKD) Brother Suicide Other Hyperlipidemia Hypertension Denies family history of Clotting disorder Dementia Anesthesia complication Bleeding disorder Lung disease Cancer Social History Smoking and tobacco status: current every day smoker (chewing tobacco) smokeless tobacco Smokeless tobacco user: chewing tobacco Alcohol intake: never Vitals/I&O/Wt Last Vital Signs Temp 99.2 F 04/26/22 08:00 Pulse 72 04/26/22 11:06 Resp 22 H 04/26/22 11:00 BP 129/83 04/26/22 08:00 Pulse Ox 94 04/26/22 11:00 O2 Del Method 04/26/22 11:00 O2 Flow Rate 2 04/26/22 11:00 04/25/22 04/26/22 04/26/22 22:59 06:59 14:59 Intake Total 550 / 550 360 / 360 Balance 550 / 550 360 / 360 Weight last 48 hrs Weight 204 lb Physical Exam Narrative: GENERAL: The patient is alert, confused and somewhat tachypneic. Somewhat ill looking HEENT: Minimal pallor with no icterus or lymphadenopathy.Oral cavity: There are no mucous membrane lesions. NECK: Trachea appears to be central. No masses noted. No JVD or thyromegaly appreciated. RESPIRATORY: Breath sounds noted bilaterally with the some scattered coarse crackles. BREASTS: Deferred. HEART: The heart sounds are normal. No S3 or S4. Systolic murmur the left sternal border patient advised to take blood pressure in the morning, before breakfast, and in the evening, before going to bed - two times a day, and to bring the blood pressure diary to the office in two weeks. No pericardial rub ABDOMEN: No vessel pulsations or distention. No tenderness. No organomegaly appreciated. Bowel sounds are normally heard. : Deferred. RECTAL: Deferred. LYMPHATIC: No lymphadenopathy noted in the neck. EXTREMITIES: Trace edema with no cyanosis. MUSCULOSKELETAL: No acute joint deformities or swelling SKIN: There are no significant rashes or ecchymosis NEUROPSYCHIATRIC: The patient is alert and oriented x place and person. No focal motor deficit. Seems to have poor affect Data 04/26/22 04:15 04/26/22 04:15 Other Labs: Laboratory Last Values WBC 7.0 10^3/uL (4.0-10.0) 04/26/22 04:15 RBC 3.54 10^6/uL (4.1-5.3) L 04/26/22 04:15 Hgb 10.7 g/dL (11.7-16.6) L 04/26/22 04:15 Hct 33.5 % (42.0-52.0) L 04/26/22 04:15 MCV 94.6 fl (80-94) H 04/26/22 04:15 MCH 30.2 pg (28.0-34.0) 04/26/22 04:15 MCHC 31.9 g/dL (30.0-36.0) 04/26/22 04:15 RDW 14.6 % (12.1-15.1) 04/26/22 04:15 Plt Count 214 10^3/cmm (130-400) 04/26/22 04:15 MPV 9.7 fL (7.4-10.4) 04/26/22 04:15 Neut % (Auto) 91.8 % 04/26/22 04:15 Lymph % (Auto) 2.3 % 04/26/22 04:15 [place] % (Auto) 2.6 % 04/26/22 04:15 Eos % (Auto) 0.9 % 04/26/22 04:15 Baso % (Auto) 0.3 % 04/26/22 04:15 Neut # (Auto) 6.46 10^3/uL (1.8-7.7) 04/26/22 04:15 Lymph # (Auto) 0.2 10^3/uL (0.8-4.8) L 04/26/22 04:15 [place] # (Auto) 0.2 10^3/uL (0.2-0.9) 04/26/22 04:15 Eos # (Auto) 0.1 10^3/uL (0.0-0.8) 04/26/22 04:15 Baso # (Auto) 0.0 10^3/uL (0.0-0.1) 04/26/22 04:15 Nucleated RBC % (auto) 0 % 04/26/22 04:15 Total Counted 100 (0-100) 04/25/22 22:03 Atypical Lymphs % 1.0 % (0-5) 04/25/22 22:03 Absolute Neutrophils 7.5 10^3/cmm (1.4-6.5) H 04/25/22 22:03 Segmented Neutrophils 73 % 04/25/22 22:03 Abs Segm Neuts (Man) 5.9 10/cmm (1.6-7.1) 04/25/22 22:03 Band Neutrophils 19.0 % 04/25/22 22:03 Abs Band Neuts (Man) 1.5 10^3/cmm (0.0-1.2) H 04/25/22 22:03 Absolute Lymphocytes 0.2 10^3/cmm (1.2-3.4) L 04/25/22 22:03 Lymphocytes (Manual) 1 % 04/25/22 22:03 Monocytes (Manual) 3.0 % 04/25/22 22:03 Absolute Monocytes 0.2 10^3/cmm (0.1-0.6) 04/25/22 22:03 Eosinophils (Manual) 2 % 04/25/22 22:03 Absolute Eosinophils 0.1 10^3/cmm (0.0-0.7) 04/25/22 22:03 Basophils (Manual) Not Reportable 04/25/22 22:03 Metamyelocytes 1.0 % 04/25/22 22:03 Nucleated RBCs # 0.0 /100WBC 04/26/22 04:15 Platelet Estimate Normal (Normal) 04/25/22 22:03 Polychromasia 1+ H 04/25/22 22:03 Anisocytosis 1+ H 04/25/22 22:03 Macrocytosis 1+ H 04/25/22 22:03 Sodium 131 mmol/L (136-145) L 04/26/22 04:15 Potassium 4.0 mmol/L (3.5-5.1) 04/26/22 04:15 Chloride 95 mmol/L (98-107) L 04/26/22 04:15 Carbon Dioxide 27 mmol/L (22-29) 04/26/22 04:15 Anion Gap 13.0 (5-19) 04/26/22 04:15 BUN 33 mg/dL (6-20) H 04/26/22 04:15 Creatinine 1.7 mg/dL (0.7-1.2) H 04/26/22 04:15 GFR Calculation 41.5 mL/min (90-130) L 04/26/22 04:15 Glucose 114 mg/dL (65-115) 04/26/22 04:15 POC Glucose 153 mg/dL (70-110) H 04/26/22 11:24 Calculated Osmolality 280 mOsm/kg (285-295) L 04/26/22 04:15 Lactic Acid 1.1 mmol/L (0.5-2.2) 04/25/22 22:39 Calcium 9.4 mg/dL (8.5-10.5) 04/26/22 04:15 Total Bilirubin 0.7 mg/dL (0.15-1.2) 04/25/22 22:03 AST 16 U/L (0-40) 04/25/22 22:03 ALT 35 U/L (0-41) 04/25/22 22:03 Alkaline Phosphatase 189 U/L (40-130) H 04/25/22 22:03 Troponin T Baseline 128 ng/L (0-15) H* 04/25/22 22:03 Troponin T 120 Minute 126.7 ng/L (0-15) H 04/26/22 00:05 Delta Troponin T -1.3 ABS# (0-10) L 04/26/22 00:05 Troponin T Hi Sens 6Hr 112.2 ng/L (0-15) H 04/26/22 04:15 Troponin T Hi Sens 6Hr Delta -15.8 ng/L (0-12) L 04/26/22 04:15 C-Reactive Protein 446.1 mg/L (0.0-4.9) H 04/25/22 22:03 NT-Pro-B Natriuret Pep 1204 pg/mL (0-125) H 04/25/22 22:03 Total Protein 5.3 g/dL (6.6-8.7) L 04/25/22 22:03 Albumin 3.1 g/dL (3.5-5.2) L 04/25/22 22:03 Globulin 2.2 g/dL (1.3-4.6) 04/25/22 22:03 Procalcitonin 34.78 ng/mL (0-0.5) H 04/26/22 04:15 Urine Color Yellow (Yellow) 04/25/22 22:03 Urine Appearance Clear (CLEAR) 04/25/22 22:03 Urine pH 7 (5-7) 04/25/22 22:03 Ur Specific [place] 1.005 (1.005-1.030) 04/25/22 22:03 Urine Protein 3+ (Negative) H 04/25/22 22:03 Urine Glucose (UA) Norm (Normal) 04/25/22 22:03 Urine Ketones Negative (Negative) 04/25/22 22:03 Urine Blood 3+ (Negative) H 04/25/22 22:03 Urine Nitrate Negative (Negative) 04/25/22 22:03 Urine Bilirubin Neg (Negative) 04/25/22 22:03 Urine Urobilinogen Neg mg/dL (Negative) 04/25/22 22:03 Ur Leukocyte Esterase Negative (Negative) 04/25/22 22:03 Urine RBC 5-10 /hpf (0-2) H 04/25/22 22:03 Urine WBC 0-4 /hpf (0-5) H 04/25/22 22:03 Ur Squamous Epith Cells 0-4 /hpf (0-5) H 04/25/22 22:03 Amorphous Sediment Not Reportable 04/25/22 22:03 Urine Bacteria Trace /hpf (NONE) 04/25/22 22:03 Urine Mucus Trace /hpf 04/25/22 22:03 Influenza Type A Ag negative (Negative) 04/25/22 22:03 Influenza Type B Ag negative (Negative) 04/25/22 22:03 SARS-CoV-2 Ag (Rapid) Negative (Negative) 04/25/22 22:03 Micro: Microbiology 04/25/22 22:15 Blood Culture - Preliminary Blood SPECIMEN COLLECTED 04/25/22 22:03 Blood Culture - Preliminary Blood SPECIMEN COLLECTED CXR: Radiologist's impression: 1. Mild bilateral lower lung opacities, see above discussion. 2. Other findings discussed above. Other CT: My impression: CT of the chest and abdomen 1. Large left retroperitoneal soft tissue mass worrisome for malignancy, possibly of adrenal origin. Further evaluation with PET CT scan, or needle biopsy recommended. 2. Right nephrectomy 3. Other non urgent findings as described above. Echo: My impression: ?Normal left ventricular size and ejection fraction of 60%, ?(visual.). No gross wall motion normalities. ?Thickened aortic valve. ?Mild to moderate? tricuspid valve regurgitation. ?Mild mitral valve regurgitation. ?Estimated pulmonary artery peak systolic pressure 32 mm of Hg. ?There is no pericardial effusion. ?There are no intracardiac masses. ?Comparison with the previous study is difficult because of the ?difference in the technical quality. EKG 1: My Interpretation: The EKG showed a normal sinus rhythm with a rate of [address]-T changes. Some features of LVH. A&P Assessment and plan (1) Elevated troponin: It is possible that the patient may have had a non-ST elevation myocardial infarction. Troponin T is trending down. He apparently has no chest pain. He may benefit from a Myocardial perfusion imaging, to further evaluate his coronary status and decide on further management. In view of his altered mental status, kidney injury and iodide allergy, the angiogram should be the last resort. His EKG and echocardiogram are unremarkable. He never had any chest pain. (2) Atherosclerosis of coronary artery of [place] heart without angina pectoris: Patient had a PCI of the circumflex artery in the past. The stented segment was found patent in 2019. Consider repeat angiogram, if he has significant ischemia. (3) SOB (shortness of breath): This could be multifactorial. He has an element of diastolic heart failure. Metastatic lesions/underlying lung disease are other contributing factor's. He may be carefully treated with some IV diuretics. (4) Metastatic renal cell carcinoma: At this point, it is not clear whether he has any metastatic lesions in the brain. Seems to have extensive mets into the retroperitoneal tissue and possibly into the lungs (5) Altered mental status: The etiology is not clear. Seems to be a recent event. (6) Acute kidney injury: His BUN/creatinine is going up. Plan The patient and the family are agreeable, we may consider doing the Myocardial perfusion imaging to further evaluate his coronary status. In the meanwhile, he may be kept on Plavix, aspirin and the other current home medications Patient's overall prognosis seems to be poor. Based on his clinical progress, further recommendations will be made Coding Level of Care Code 37413 Diagnoses Elevated troponin R77.8 Atherosclerosis of coronary artery of [place] heart without angina pectoris I25.10 SOB (shortness of breath) R06.02 Metastatic renal cell carcinoma C64.9 Altered mental status R41.82 Acute kidney injury N17.9
[2022-04-26] MEDS: spironolactone 25 mg Tablet PO (15:48)
[2022-04-26] MEDS: hydroCHLOROthiazide 25 mg Tablet PO (15:48)
[2022-04-26 17:30] LABS: Glucose Point of Care 105 mg/dL (70-110)
--- NOTE | 2022-04-26 20:30 | PM.PN ---
Subjective Subjective: He reports he is feeling somewhat better, but somewhat sluggish responses. She denies pain. Denies chest pain. States that the wounds on his left arm were sustained after multiple blood draws done for diagnostic purposes with his health conditions including cancer. He states that he is scheduled for treatment of cancer on the in [place]. Vitals/I&O/Wt Last Vital Signs Temp 97.5 F L 04/26/22 16:00 Pulse 69 04/26/22 20:03 Resp 20 H 04/26/22 20:03 BP 118/76 04/26/22 16:00 Pulse Ox 93 04/26/22 20:03 O2 Del Method 04/26/22 20:03 O2 Flow Rate 2 04/26/22 20:03 04/26/22 04/26/22 04/26/22 06:59 14:59 22:59 Intake Total 550 / 550 530 / 530 1396.25 / 1926.25 Balance 550 / 550 530 / 530 1396.25 / 1926.25 Weight last 48 hrs Weight 92.533 kg Physical Exam Narrative: Sitting up in bed. Appears mildly somnolent. Const: COMMON NORMALS: patient oriented x3 and alert GENERAL APPEARANCE: cooperative ORIENTATION/CONSCIOUSNESS: Yes awake OTHER: Somewhat slowed responses. HENMT: COMMON NORMALS: oropharynx normal Neck/C-Spine: COMMON NORMALS: no JVD Resp: COMMON NORMALS: normal respiratory effort and clear to auscultation bilaterally AUSCULTATION: clear to auscultation bilaterally Cardio: COMMON NORMALS: no JVD, regular rhythm, S1 normal heart sound present, S2 normal heart sound present and No murmurs present (Cardio) RHYTHM: regular rhythm HEART SOUNDS: S1 normal heart sound present and S2 normal heart sound present GI: COMMON NORMALS: Normal to inspection, nondistended, normoactive bowel sounds present, Soft to palpation and non-tender PALPATION: Yes Soft to palpation Extremity: COMMON NORMALS: no joint enlargement and no pedal edema NARRATIVE EXTREMITY EXAM: 2+ edema left forearm and hand Neuro: COMMON NORMALS: patient oriented x3 and moves all extremities SENSORIUM/ORIENTATION: Yes alert Skin: COMMON NORMALS: no rashes or lesions noted NARRATIVE SKIN EXAM: Multiple small abrasions, some from old needlesticks, some abrasions do not resemble needlesticks on both arms, more on the left. GENERAL SKIN EXAM: no rashes or lesions noted OTHER: Several ulcerations on dorsal lateral left distal forearm, largest 2 cm in diameter, without tunneling, with excoriation to subcutaneous tissue serous discharge. Data 04/26/22 04:15 04/26/22 04:15 Micro: Microbiology 04/25/22 22:15 Blood Culture - Preliminary Blood SPECIMEN COLLECTED 04/25/22 22:03 Blood Culture - Preliminary Blood SPECIMEN COLLECTED A&P Assessment and plan (1) Benign essential HTN: (2) Hyponatremia: (3) Elevated troponin: (4) Acute kidney injury superimposed on CKD: (5) Elevated procalcitonin: (6) Retroperitoneal mass: (7) Hypoxia: Plan Acute encephalopathy: Possibly acute metabolic encephalopathy with worsening acute kidney injury, creatinine up to 1.7. Additionally noted troponin elevation, although she remains chest pain-free. Review of CT head shows more focal/Symmetrical small area of low-attenuation in the left posterior parietal white matter. These may well represent an dditional focal area of chronic white matter ischemia/infarct. Given the provided history of cancer, a metastatic focus or other neoplasm is not entirely excluded. Changes related to multiple sclerosis or other demyelinating process might also be considered. ? He could benefit from MRI assessment, however, he does not appear to be in condition currently to tolerate one. This could hopefully be obtained once he is doing slightly better. Hold venlafaxine. Monitor mental status, at risk of deterioration, maintain fall precautions. Elevated troponin: Possibly type II NSTEMI: Has risk factors of coronary disease progression with prior CAD and stent. Add cardiac monitoring. TTE. Cardiology consultation. Discussed with cardiology. Extensive discussion with cardiology with family, family consensus regarding proceeding with further assessment with stress test once available and once he is further volume compensated. Continue carvedilol Plavix. Fluid overload/CHF: Discussing with cardiology he is fluid overloaded as per their assessment. Stop IV fluid. Add diuretic. He has allergy to furosemide. Per discussion we will add HCTZ, spironolactone. Monitor electrolytes closely including sodium, potassium. Recheck for the morning. TTE assessment as above. RICARDA on CKD: Worsening RICARDA despite fluid challenge. Stop IVF. Check kidney ultrasound. Hold losartan. Check urine sodium, creatinine, urea. Baseline serum creatinine is unknown Hyponatremia: Reassess sodium. Did not improve with IV hydration. Left upper extremity cellulitis: Continue antibiotic. Duplex study reviewed, no DVT. Soft tissue ultrasound reviewed, no abscess. With left upper extremity edema. Elevate to heart level. Markedly elevated procalcitonin: Could be secondary to underlying malignancy, or possibly from cellulitis Follow blood culture Urine culture Follow repeat procalcitonin Currently on Zosyn. For now will empirically keep him on levofloxacin IV 750 daily. Dehydration with generalized weakness: Continue gentle IV hydration PT on board Monitor orthostatic vital sign Retroperitoneal mass: Reports known renal cancer. Sees an oncologist. Planned treatment was to start 04/29. Bilateral multiple pulmonary nodules concerning for possible metastatic disease. History of renal cell carcinoma status post right nephrectomy Hypoxia: Currently requiring minimal supplemental oxygen We will try and wean off nasal cannula, CODE STATUS: Full code DVT prophylaxis on Lovenox Attestations Medical Necessity Statement*: Continue acute encephalopathy, optimization of acute CHF/hyperkalemia, further assessment of troponin elevation, cardiac follow-up and assessment for cardiac ischemia. Diagnoses Benign essential HTN I10 Hyponatremia E87.1 Elevated troponin R77.8 Acute kidney injury superimposed on CKD N17.9; N18.9 Elevated procalcitonin R79.89 Retroperitoneal mass R19.00 Hypoxia R09.02
--- NOTE | 2022-04-26 20:46 | USR_ITS ---
PROCEDURE INFORMATION: Exam: US Retroperitoneal; Complete; Kidneys and Bladder Exam date and time: 04/26/2022 9:03 PM Age: 57 years old Clinical indication: Abnormal findings; Abnormal lab test; Abnormal kidney function lab tests; Prior surgery; Surgery date: 6+ months; Surgery type: RT nephrectomy; Additional info: Matias TECHNIQUE: Imaging protocol: Real-time ultrasound of the retroperitoneum with image documentation. Complete exam focused on the kidneys and bladder. COMPARISON: [place] [id number] 04/25/2022 11:49 PM FINDINGS: Prior right nephrectomy. The left kidney measures 14.5 cm in length. This is slightly prominent in size, possibly secondary to compensatory hypertrophy. There is no hydronephrosis or perinephric fluid. Neither ureter is visible or obviously dilated. The renal parenchymal echogenicity appear within normal limits for age. Possible small calculus versus small angiomyolipoma in the lower pole of the left kidney. There is no sonographically visible renal mass or cyst. The included images of the urinary bladder appear unremarkable. US/US renal BI* [id number] IMPRESSION: 1. Prior right nephrectomy. 2. No hydronephrosis of the left kidney. 3. Other findings discussed above. Micro
[2022-04-26 21:40] LABS: Glucose Point of Care 148 mg/dL (70-110)
[2022-04-27] VITALS (8 sets, daily range): BP systolic 120–160; BP diastolic 69–88; PULSE 64–87; RESP 16–26; TEMP 36.4–36.7; O2SAT 90–96
[2022-04-27] MEDS: piperacillin-tazobactam 3.375 GM in sodium chloride 0.9% (plus) 50 ML IV ×3 (00:19→17:50)
[2022-04-27] MEDS: enoxaparin 40 mg/0.4 mL Syringe SUBCUT (02:38)
[2022-04-27 04:18] LABS: Basophils % 0.5 %; Eosinophils % 0.3 %; Hematocrit 31.1 % (42.0-52.0); Hemoglobin 10.1 g/dL (11.7-16.6); Lymphocytes # 0.1 10^3/uL (0.8-4.8); Mean Corpuscular HGB Conc 32.5 g/dL (30.0-36.0); Mean Corpuscular Hemoglobin 29.7 pg (28.0-34.0); Mean Corpuscular Volume 91.5 fl (80-94); Mean Platelet Volume 10.5 fL (7.4-10.4); Monocytes # 0.2 10^3/uL (0.2-0.9); Neutrophils # 5.98 10^3/uL (1.8-7.7); Neutrophils % 93.6 %; Nucleated Red Blood Cells % 0 %; Platelet Count 197 10^3/cmm (130-400); Red Cell Distribution Width 14.5 % (12.1-15.1); White Blood Count 6.4 10^3/uL (4.0-10.0)
[2022-04-27 04:40] LABS: Anion Gap 17.7 (5-19); Blood Urea Nitrogen 27 mg/dL (6-20); Carbon Dioxide 25 mmol/L (22-29); Chloride 93 mmol/L (98-107); Glomerular Filtration Rate 47.9 mL/min (90-130); Glucose 123 mg/dL (65-115); Osmolality Calculated 282 mOsm/kg (285-295); Sodium 133 mmol/L (136-145)
[2022-04-27 04:41] LABS: Procalcitonin 12.88 ng/mL (0-0.5)
[2022-04-27 04:54] LABS: Potassium 2.7 mmol/L (3.5-5.1)
[2022-04-27 05:13] LABS: Slide Review Slide Review Perform
[2022-04-27] MEDS: lidocaine 1% 5 ML in potassium chloride premix 100 ML 26.25 ML IV (05:43)
[2022-04-27 05:49] LABS: Magnesium 1.9 mg/dL (1.7-2.3)
[2022-04-27 06:38] LABS: Glucose Point of Care 109 mg/dL (70-110)
--- NOTE | 2022-04-27 07:39 | PC.NURSE ---
Clarified with Dr. Heard that the potassium rider should be 40meq.
[2022-04-27] MEDS: ipratropium-albuterol 3 mL Neb INHALATION (08:40)
[2022-04-27] MEDS: budesonide 0.5 mg/2 mL Neb INHALATION ×2 (08:40→20:41)
[2022-04-27] MEDS: spironolactone 25 mg Tablet PO (10:05)
[2022-04-27] MEDS: pantoprazole DR 40 mg Tablet PO (10:06)
[2022-04-27] MEDS: atorvastatin 40 mg Tablet PO (10:06)
[2022-04-27] MEDS: clopidogrel 75 mg Tablet PO (10:06)
[2022-04-27] MEDS: hydroCHLOROthiazide 25 mg Tablet PO (10:06)
[2022-04-27] MEDS: carvedilol 25 mg Tablet PO ×2 (10:06→17:52)
[2022-04-27 11:30] LABS: Glucose Point of Care 183 mg/dL (70-110)
[2022-04-27] MEDS: insulin lispro 100 unit/1 mL SUBCUT ×2 (12:57→17:49)
[2022-04-27 17:09] LABS: Glucose Point of Care 151 mg/dL (70-110)
--- NOTE | 2022-04-27 21:14 | P.PN_ITS ---
Subjective Subjective: Today he is feeling better, he is more alert, more interactive. He tells me he knows about a lesion in his brain which she says they have discussed with his oncologist and anticipated improvement with initiation of treatment. Vitals/I&O/Wt Last Vital Signs Temp 98.0 F 04/27/22 16:00 Pulse 69 04/27/22 20:42 Resp 16 04/27/22 20:42 BP 122/73 04/27/22 16:00 Pulse Ox 90 04/27/22 20:42 O2 Del Method 04/27/22 20:42 O2 Flow Rate 2 04/27/22 20:42 04/27/22 04/27/22 04/27/22 06:59 14:59 22:59 Intake Total 50 / 2456.25 1355 / 1355 360 / 1715 Balance 50 / 2456.25 1355 / 1355 360 / 1715 Weight last 48 hrs Weight 92.533 kg Physical Exam Narrative: Sitting up in bed. Appears mildly somnolent. Const: COMMON NORMALS: patient oriented x3 and alert GENERAL APPEARANCE: cooperative ORIENTATION/CONSCIOUSNESS: Yes awake OTHER: Somewhat slowed responses. HENMT: COMMON NORMALS: oropharynx normal Neck/C-Spine: COMMON NORMALS: no JVD Resp: COMMON NORMALS: normal respiratory effort and clear to auscultation bilaterally AUSCULTATION: clear to auscultation bilaterally Cardio: COMMON NORMALS: no JVD, regular rhythm, S1 normal heart sound present, S2 normal heart sound present and No murmurs present (Cardio) RHYTHM: regular rhythm HEART SOUNDS: S1 normal heart sound present and S2 normal heart sound present GI: COMMON NORMALS: Normal to inspection, nondistended, normoactive bowel sounds present, Soft to palpation and non-tender PALPATION: Yes Soft to palpation Extremity: COMMON NORMALS: no joint enlargement and no pedal edema NARRATIVE EXTREMITY EXAM: 2+ edema left forearm and hand, decreased erythema Neuro: COMMON NORMALS: patient oriented x3 and moves all extremities SENSORIUM/ORIENTATION: Yes alert Skin: COMMON NORMALS: no rashes or lesions noted NARRATIVE SKIN EXAM: Multiple small abrasions, some from old needlesticks, some abrasions do not resemble needlesticks on both arms, more on the left. GENERAL SKIN EXAM: no rashes or lesions noted OTHER: Several ulcerations on dorsal lateral left distal forearm, largest 2 cm in diameter, without tunneling, with excoriation to subcutaneous tissue serous discharge. Data 04/27/22 03:15 04/27/22 12:21 Micro: Microbiology 04/25/22 22:15 Blood Culture - Preliminary Blood NEGATIVE TO DATE 04/25/22 22:03 Blood Culture - Preliminary Blood NEGATIVE TO DATE A&P Assessment and plan (1) Benign essential HTN: (2) Hyponatremia: (3) Elevated troponin: (4) Acute kidney injury superimposed on CKD: (5) Elevated procalcitonin: (6) Retroperitoneal mass: (7) Hypoxia: Plan Acute encephalopathy: Today with improvement. He is awake, alert, Lucid today. Oriented x3. Recognizes family. Possibly acute metabolic encephalopathy with worsening acute kidney injury, creatinine up to 1.7. Today creatinine reviewed, better at 1.5. Follow-up renal function requested. Additionally noted troponin elevation, although she remains chest pain-free. Review of CT head shows more focal/Symmetrical small area of low-attenuation in the left posterior parietal white matter. These may well represent an dditional focal area of chronic white matter ischemia/infarct. Given the provided history of cancer, a metastatic focus or other neoplasm is not entirely excluded. Kassandra nges related to multiple sclerosis or other demyelinating process might also be considered. ?As this appears to be a known lesion doubt he will get further benefit from MRI. Hold venlafaxine due to potential toxicity because of his encephalopathy in setting of RICARDA. Monitor creatinine. Monitor mental status, at risk of deterioration, maintain fall precautions. Severe hypokalemia: Requires close monitoring, today required multiple rechecks of potassium as potassium still low despite multiple replacements. At risk of arrhythmia, add cardiac monitoring. Elevated troponin: Discussed with cardiology. Plan for stress test tomorrow. Possibly type II NSTEMI: Has risk factors of coronary disease progression with prior CAD and stent. Add cardiac monitoring. TTE reviewed, normal EF, no gross WMA. Mild MVR. Cardiology consultation. Continue carvedilol Plavix. Statin. Fluid overload/CHF: Reviewed FAUSTINA, output not charted. Discussed with cardiology, for now continue HCTZ and spironolactone, reassess. Renal function. Requires close monitoring of electrolytes with diuresis. He has allergy to furosemide. TTE assessment as above. RICARDA on CKD: Today with improvement, appears possibly secondary to diuresis. Kidney ultrasound without hydronephrosis. Prior right nephrectomy. Hold losartan. Check urine sodium, creatinine, urea. Baseline serum creatinine is unknown Hyponatremia: Reassess sodium. Did not improve with IV hydration. Left upper extremity cellulitis: Improving erythema. Swelling persist. Discussed with him to elevate left upper extremity. Requested nursing staff for no IVs in left arm. Continue antibiotic. Duplex study no DVT. Soft tissue ultrasound no abscess. With left upper extremity edema. Elevate to heart level. Markedly elevated procalcitonin: Could be secondary to underlying malignancy, or possibly from cellulitis Follow blood culture Urine culture Follow repeat procalcitonin level appears to be decreasing. Currently on Zosyn. For now will empirically keep him on levofloxacin IV 750 daily. Dehydration with generalized weakness: Received initially IV hydration. Was found fluid overloaded. Cardiac assessment. IVF was stopped. PT on board Monitor orthostatic vital sign Retroperitoneal mass: Reports known renal cancer. Sees an oncologist. Planned treatment was to start 04/29. Bilateral multiple pulmonary nodules concerning for possible metastatic disease. History of renal cell carcinoma status post right nephrectomy Hypoxia: Currently requiring minimal supplemental oxygen We will try and wean off nasal cannula, CODE STATUS: Full code DVT prophylaxis on Lovenox Attestations Medical Necessity Statement*: Continue admission for assessment management of acute CHF, possible NSTEMI, severe electrolyte deficiencies requiring multiple replacements, close monitoring, RICARDA, cellulitis and additional comorbidities as above. Diagnoses Benign essential HTN I10 Hyponatremia E87.1 Elevated troponin R77.8 Acute kidney injury superimposed on CKD N17.9; N18.9 Elevated procalcitonin R79.89 Retroperitoneal mass R19.00 Hypoxia R09.02
[2022-04-27] MEDS: potassium chloride ER 20 mEq Tablet 40 MEQ PO (21:37)
--- NOTE | 2022-04-27 21:37 | PM.PN ---
Subjective Subjective: Patient is feeling much better. Denies any chest pain or palpitations. The shortness of breath also seems to be improving. Was started on HCTZ/spironolactone yesterday. The overall functional status seems to be improving Medications: Medication Review Details: Current Medications Acetaminophen (Acetaminophen 325 Mg Tablet) 650 mg PO Q6H PRN PRN Reason: Mild/Mod Pain Or Temp >/= 101 Albuterol/Ipratropium (Ipratropium-Albuterol 3 Ml Neb) 3 ml INHALATION Q6H PRN PRN Reason: SHORTNESS OF BREATH Last Admin: 04/27/22 08:40 Dose: 3 ml Amlodipine Besylate (Amlodipine 10 Mg Tablet) 10 mg PO DAILY [facility] Last Admin: 04/26/22 09:14 Dose: 10 mg Atorvastatin Calcium (Atorvastatin 40 Mg Tablet) 40 mg PO DAILY [facility] Last Admin: 04/27/22 10:06 Dose: 40 mg Bisacodyl (Bisacodyl 5 Mg Tablet) 10 mg PO DAILY PRN; Protocol PRN Reason: Constipation (see protocol) Budesonide (Budesonide 0.5 Mg/2 Ml Neb) 0.5 mg INHALATION BID.RESPIRATORY [facility] Last Admin: 04/27/22 20:41 Dose: 0.5 mg Carvedilol (Carvedilol 25 Mg Tablet) 25 mg PO BID [facility] Last Admin: 04/27/22 17:52 Dose: 25 mg Clopidogrel Bisulfate (Clopidogrel 75 Mg Tablet) 75 mg PO DAILY [facility] Last Admin: 04/27/22 10:06 Dose: 75 mg Dextrose (Dextrose 50% Syringe 50 Ml) 25 ml IVP ONCE PRN; Protocol PRN Reason: hypoglycemia protocol Dextrose (Dextrose 50% Syringe 50 Ml) 50 ml IVP PRN PRN; Protocol PRN Reason: hypoglycemia protocol Enoxaparin Sodium (Enoxaparin 40 Mg/0.4 Ml Syringe) 40 mg SUBCUT Q24H [facility] Last Admin: 04/27/22 02:38 Dose: 40 mg Glucagon (Glucagon 1 Mg/Ml Inj 1 Ml) 1 mg IM ONCE PRN; Protocol PRN Reason: Adult Acute Hypoglycemia Prot. Hydrochlorothiazide (Hydrochlorothiazide 25 Mg Tablet) 25 mg PO DAILY [facility] Last Admin: 04/27/22 10:06 Dose: 25 mg Dextrose (D5w) 500 mls @ 100 mls/hr IV ONCE PRN; Protocol PRN Reason: Adult Acute Hypoglycemia Prot Piperacillin Sod/Tazobactam (Sod 3.375 gm/ Sodium Chloride) 50 mls @ 12.5 mls/hr IV Q8H [facility]; Protocol Last Admin: 04/27/22 17:50 Dose: 12.5 mls/hr Insulin Human Lispro (Insulin Lispro 100 Unit/1 Ml) 0 unit SUBCUT TIDWM [facility]; Protocol Last Admin: 04/27/22 17:49 Dose: 2 unit Ondansetron HCl (Ondansetron 2 Mg/Ml Sdv 2 Ml) 4 mg IVP Q8H PRN PRN Reason: vomiting, or N/V if npo Pantoprazole Sodium (Pantoprazole Dr 40 Mg Tablet) 40 mg PO DAILY [facility] Last Admin: 04/27/22 10:06 Dose: 40 mg Potassium Chloride (Potassium Chloride Er 20 Meq Tablet) 20 meq PO DAILY [facility] Spironolactone (Spironolactone 25 Mg Tablet) 25 mg PO DAILY [facility] Last Admin: 04/27/22 10:05 Dose: 25 mg Vitals/I&O/Wt Last Vital Signs Temp 97.9 F 04/27/22 20:00 Pulse 69 04/27/22 20:42 Resp 16 04/27/22 20:42 BP 153/88 04/27/22 20:00 Pulse Ox 90 04/27/22 20:42 O2 Del Method 04/27/22 20:42 O2 Flow Rate 2 04/27/22 20:42 04/27/22 04/27/22 04/27/22 06:59 14:59 22:59 Intake Total 50 / 2456.25 1355 / 1355 360 / 1715 Balance 50 / 2456.25 1355 / 1355 360 / 1715 Physical Exam Narrative: GENERAL: The patient is alert, confused and somewhat tachypneic. Somewhat ill looking HEENT: Minimal pallor with no icterus or lymphadenopathy.Oral cavity: There are no mucous membrane lesions. NECK: Trachea appears to be central. No masses noted. No JVD or thyromegaly appreciated. RESPIRATORY: Breath sounds noted bilaterally with the some scattered coarse crackles. BREASTS: Deferred. HEART: The heart sounds are normal. No S3 or S4. Systolic murmur the left sternal border No pericardial rub ABDOMEN: No vessel pulsations or distention. No tenderness. No organomegaly appreciated. Bowel sounds are normally heard. : Deferred. RECTAL: Deferred. LYMPHATIC: No lymphadenopathy noted in the neck. EXTREMITIES: Trace edema with no cyanosis. MUSCULOSKELETAL: No acute joint deformities or swelling SKIN: There are no significant rashes or ecchymosis NEUROPSYCHIATRIC: The patient is alert and oriented x place and person. No focal motor deficit. Seems to have poor affect Data 04/27/22 03:15 04/27/22 12:21 Other Labs: Laboratory Last Values WBC 6.4 10^3/uL (4.0-10.0) 04/27/22 03:15 RBC 3.40 10^6/uL (4.1-5.3) L 04/27/22 03:15 Hgb 10.1 g/dL (11.7-16.6) L 04/27/22 03:15 Hct 31.1 % (42.0-52.0) L 04/27/22 03:15 MCV 91.5 fl (80-94) 04/27/22 03:15 MCH 29.7 pg (28.0-34.0) 04/27/22 03:15 MCHC 32.5 g/dL (30.0-36.0) 04/27/22 03:15 RDW 14.5 % (12.1-15.1) 04/27/22 03:15 Plt Count 197 10^3/cmm (130-400) 04/27/22 03:15 MPV 10.5 fL (7.4-10.4) H 04/27/22 03:15 Neut % (Auto) 93.6 % 04/27/22 03:15 Lymph % (Auto) 2.0 % 04/27/22 03:15 [place] % (Auto) 3.0 % 04/27/22 03:15 Eos % (Auto) 0.3 % 04/27/22 03:15 Baso % (Auto) 0.5 % 04/27/22 03:15 Neut # (Auto) 5.98 10^3/uL (1.8-7.7) 04/27/22 03:15 Lymph # (Auto) 0.1 10^3/uL (0.8-4.8) L 04/27/22 03:15 [place] # (Auto) 0.2 10^3/uL (0.2-0.9) 04/27/22 03:15 Eos # (Auto) 0.0 10^3/uL (0.0-0.8) 04/27/22 03:15 Baso # (Auto) 0.0 10^3/uL (0.0-0.1) 04/27/22 03:15 Nucleated RBC % (auto) 0 % 04/27/22 03:15 Total Counted 100 (0-100) 04/25/22 22:03 Atypical Lymphs % 1.0 % (0-5) 04/25/22 22:03 Absolute Neutrophils 7.5 10^3/cmm (1.4-6.5) H 04/25/22 22:03 Segmented Neutrophils 73 % 04/25/22 22:03 Abs Segm Neuts (Man) 5.9 10/cmm (1.6-7.1) 04/25/22 22:03 Band Neutrophils 19.0 % 04/25/22 22:03 Abs Band Neuts (Man) 1.5 10^3/cmm (0.0-1.2) H 04/25/22 22:03 Absolute Lymphocytes 0.2 10^3/cmm (1.2-3.4) L 04/25/22 22:03 Lymphocytes (Manual) 1 % 04/25/22 22:03 Monocytes (Manual) 3.0 % 04/25/22 22:03 Absolute Monocytes 0.2 10^3/cmm (0.1-0.6) 04/25/22 22:03 Eosinophils (Manual) 2 % 04/25/22 22:03 Absolute Eosinophils 0.1 10^3/cmm (0.0-0.7) 04/25/22 22:03 Basophils (Manual) Not Reportable 04/25/22 22:03 Metamyelocytes 1.0 % 04/25/22 22:03 Nucleated RBCs # 0.0 /100WBC 04/27/22 03:15 Platelet Estimate Normal (Normal) 04/25/22 22:03 Polychromasia 1+ H 04/25/22 22:03 Anisocytosis 1+ H 04/25/22 22:03 Macrocytosis 1+ H 04/25/22 22:03 Sodium 133 mmol/L (136-145) L 04/27/22 03:15 Potassium 3.0 mmol/L (3.5-5.1) L 04/27/22 12:21 Chloride 93 mmol/L (98-107) L 04/27/22 03:15 Carbon Dioxide 25 mmol/L (22-29) 04/27/22 03:15 Anion Gap 17.7 (5-19) 04/27/22 03:15 BUN 27 mg/dL (6-20) H 04/27/22 03:15 Creatinine 1.5 mg/dL (0.7-1.2) H 04/27/22 03:15 GFR Calculation 47.9 mL/min (90-130) L 04/27/22 03:15 Glucose 123 mg/dL (65-115) H 04/27/22 03:15 POC Glucose 151 mg/dL (70-110) H 04/27/22 16:43 Calculated Osmolality 282 mOsm/kg (285-295) L 04/27/22 03:15 Lactic Acid 1.1 mmol/L (0.5-2.2) 04/25/22 22:39 Calcium 10.0 mg/dL (8.5-10.5) 04/27/22 03:15 Magnesium 1.9 mg/dL (1.7-2.3) 04/27/22 03:15 Total Bilirubin 0.7 mg/dL (0.15-1.2) 04/25/22 22:03 AST 16 U/L (0-40) 04/25/22 22:03 ALT 35 U/L (0-41) 04/25/22 22:03 Alkaline Phosphatase 189 U/L (40-130) H 04/25/22 22:03 Troponin T Baseline 128 ng/L (0-15) H* 04/25/22 22:03 Troponin T 120 Minute 126.7 ng/L (0-15) H 04/26/22 00:05 Delta Troponin T -1.3 ABS# (0-10) L 04/26/22 00:05 Troponin T Hi Sens 6Hr 112.2 ng/L (0-15) H 04/26/22 04:15 Troponin T Hi Sens 6Hr Delta -15.8 ng/L (0-12) L 04/26/22 04:15 C-Reactive Protein 446.1 mg/L (0.0-4.9) H 04/25/22 22:03 NT-Pro-B Natriuret Pep 1204 pg/mL (0-125) H 04/25/22 22:03 Total Protein 5.3 g/dL (6.6-8.7) L 04/25/22 22:03 Albumin 3.1 g/dL (3.5-5.2) L 04/25/22 22:03 Globulin 2.2 g/dL (1.3-4.6) 04/25/22 22:03 Procalcitonin 12.88 ng/mL (0-0.5) H 04/27/22 03:15 Urine Color Yellow (Yellow) 04/25/22 22:03 Urine Appearance Clear (CLEAR) 04/25/22 22:03 Urine pH 7 (5-7) 04/25/22 22:03 Ur Specific [place] 1.005 (1.005-1.030) 04/25/22 22:03 Urine Protein 3+ (Negative) H 04/25/22 22:03 Urine Glucose (UA) Norm (Normal) 04/25/22 22:03 Urine Ketones Negative (Negative) 04/25/22 22:03 Urine Blood 3+ (Negative) H 04/25/22 22:03 Urine Nitrate Negative (Negative) 04/25/22 22:03 Urine Bilirubin Neg (Negative) 04/25/22 22:03 Urine Urobilinogen Neg mg/dL (Negative) 04/25/22 22:03 Ur Leukocyte Esterase Negative (Negative) 04/25/22 22:03 Urine RBC 5-10 /hpf (0-2) H 04/25/22 22:03 Urine WBC 0-4 /hpf (0-5) H 04/25/22 22:03 Ur Squamous Epith Cells 0-4 /hpf (0-5) H 04/25/22 22:03 Amorphous Sediment Not Reportable 04/25/22 22:03 Urine Bacteria Trace /hpf (NONE) 04/25/22 22:03 Urine Mucus Trace /hpf 04/25/22 22:03 Influenza Type A Ag negative (Negative) 04/25/22 22:03 Influenza Type B Ag negative (Negative) 04/25/22 22:03 SARS-CoV-2 Ag (Rapid) Negative (Negative) 04/25/22 22:03 Micro: Microbiology 02/17/23 22:15 Blood Culture - Preliminary Blood NEGATIVE TO DATE 04/25/22 22:03 Blood Culture - Preliminary Blood NEGATIVE TO DATE A&P Assessment and plan (1) Elevated troponin: It is possible that the patient may have had a non-ST elevation myocardial infarction. Troponin T is trending down. He apparently has no chest pain. He may benefit from a Myocardial perfusion imaging, to further evaluate his coronary status and decide on further management. In view of his altered mental status, kidney injury and iodide allergy, the angiogram should be the last resort. His EKG and echocardiogram are unremarkable. He never had any chest pain. (2) Atherosclerosis of coronary artery of [place] heart without angina pectoris: Patient had a PCI of the circumflex artery in the past. The stented segment was found patent in 2019. Consider repeat angiogram, if he has significant ischemia. (3) SOB (shortness of breath): This could be multifactorial. He has an element of diastolic heart failure. Metastatic lesions/underlying lung disease are other contributing factor's. May continue on the current dose of HCTZ and the spironolactone (4) Metastatic renal cell carcinoma: At this point, it is not clear whether he has any metastatic lesions in the brain. Seems to have extensive mets into the retroperitoneal tissue and possibly into the lungs (5) Altered mental status: The etiology is not clear. Seems to be a recent event. Seems to be improving (6) Acute kidney injury: His BUN/creatinine is stable Plan Myocardial perfusion imaging tomorrow. Based on the results, further recommendations will be made. Attestations Medical Necessity Statement*: Patient requires continued hospital stay for close monitoring and further management Coding Level of Care Code 57540 Diagnoses Elevated troponin R77.8 Atherosclerosis of coronary artery of [place] heart without angina pectoris I25.10 SOB (shortness of breath) R06.02 Metastatic renal cell carcinoma C64.9 Altered mental status R41.82 Acute kidney injury N17.9
--- NOTE | 2022-04-27 21:49 | ECG_ITS ---
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 Interpretive Statements NAME OF STUDY: LEXISCAN SESTAMIBI STRESS TEST INDICATION: Elevated Troponin, PROCEDURE: At the baseline, the EKG revealed sinus bradycardia with a rate of 57 bpm. Possible old inferior wall MS. No acute ST-T changes. The baseline heart was 57 bpm with a blood pressue of 163/96 mm of Hg Lexiscan was infused over a period of 20 seconds. A total of 0.4 milligrams of Lexiscan was infused. The stress phase was continued for a total of 5 minutes. Heart rate at the end of the stress phase was 75 bpm with a blood pressure 149/85 mm of Hg. The EKG at the peak infusion revealed no significant changes. Sestamibi was injected 20 seconds after the Lexiscan infusion. Heart rate at the end of the recovery phase was 71 bpm with a blood pressure of 154/91 mm of Hg. CONCLUSION: 1. No significant EKG changes with the LexiScan infusion 2. No LexiScan induced chest pain or cardiac arrhythmia 3. Normal blood pressure and heart rate response 4. Sestamibi/sestamibi perfusion scan pending; see separate report. Electronically Signed On 05-10-2022 14:34:35 RN CLINICAL APPEALS by Addi Tracy M.D. [email or web address]
[2022-04-27 22:23] LABS: Glucose Point of Care 126 mg/dL (70-110)
[2022-04-28] VITALS (10 sets, daily range): BP systolic 132–173; BP diastolic 75–93; PULSE 64–92; RESP 15–18; TEMP 36.5–36.8; O2SAT 94–96
[2022-04-28] MEDS: enoxaparin 40 mg/0.4 mL Syringe SUBCUT (01:18)
[2022-04-28] MEDS: piperacillin-tazobactam 3.375 GM in sodium chloride 0.9% (plus) 50 ML IV ×3 (01:18→18:41)
[2022-04-28 03:00] LABS: Basophils % 0.3 %; Hematocrit 31.3 % (42.0-52.0); Hemoglobin 10.3 g/dL (11.7-16.6); Lymphocytes # 0.3 10^3/uL (0.8-4.8); Lymphocytes % 4.7 %; Mean Corpuscular HGB Conc 32.9 g/dL (30.0-36.0); Mean Corpuscular Hemoglobin 30.1 pg (28.0-34.0); Mean Corpuscular Volume 91.5 fl (80-94); Mean Platelet Volume 10.1 fL (7.4-10.4); Monocytes # 0.2 10^3/uL (0.2-0.9); Monocytes % 3.8 %; Neutrophils # 5.23 10^3/uL (1.8-7.7); Neutrophils % 90.5 %; Nucleated Red Blood Cells % 0 %; Platelet Count 218 10^3/cmm (130-400); Red Blood Count 3.42 10^6/uL (4.1-5.3); Red Cell Distribution Width 14.2 % (12.1-15.1); White Blood Count 5.8 10^3/uL (4.0-10.0)
[2022-04-28 03:39] LABS: Anion Gap 14.2 (5-19); Blood Urea Nitrogen 16 mg/dL (6-20); Carbon Dioxide 33 mmol/L (22-29); Chloride 95 mmol/L (98-107); Glomerular Filtration Rate 68.5 mL/min (90-130); Glucose 139 mg/dL (65-115); Osmolality Calculated 293 mOsm/kg (285-295); Sodium 140 mmol/L (136-145)
[2022-04-28 04:13] LABS: Potassium 2.2 mmol/L (3.5-5.1)
[2022-04-28] MEDS: lidocaine 1% 5 ML in potassium chloride premix 100 ML 26.25 ML IV ×4 (04:40→23:31)
[2022-04-28 04:56] LABS: Magnesium 1.8 mg/dL (1.7-2.3)
[2022-04-28 07:17] LABS: Glucose Point of Care 130 mg/dL (70-110)
[2022-04-28] MEDS: budesonide 0.5 mg/2 mL Neb INHALATION (07:48)
[2022-04-28] MEDS: albuterol 2.5 mg/3 mL Neb INHALATION (07:48)
[2022-04-28] MEDS: spironolactone 25 mg Tablet PO (09:47)
[2022-04-28] MEDS: pantoprazole DR 40 mg Tablet PO (09:47)
[2022-04-28] MEDS: potassium chloride ER 20 mEq Tablet PO (09:47)
[2022-04-28] MEDS: atorvastatin 40 mg Tablet PO (09:47)
[2022-04-28] MEDS: carvedilol 25 mg Tablet PO ×2 (09:47→18:42)
[2022-04-28] MEDS: hydroCHLOROthiazide 25 mg Tablet PO (09:47)
[2022-04-28] MEDS: clopidogrel 75 mg Tablet PO (09:47)
--- NOTE | 2022-04-28 10:22 | PC.CHAP ---
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 [] Patient/Family/Request visit [] Outpatient visit [] Follow-up visit [] Physician referral [] Code/Alert [x] Routine visit [] Staff referral [] Actively dying [] Patient sleeping [x] Family support [] [] Out of room [] Palliative care [] [] Receiving care in room [] Pre-surgical visit [] Trauma [] Long length of stay [] ICU visit [] Other: Relational/Emotional Strength [x] Patient feels connected with others/family/visitors/staff [] Distress [] Loneliness/isolation [] Abandonment Spirituality of Patient [x] Person of Danielle [] Attends Roman Catholic of their Danielle [x] Believes in Prayer [] Reads Bible or Buddhist materials [] There are Spiritual issues to be addressed Screw Remover Interventions [x] Prayer [x] Active listening [] Non-anxious presence [x] Spiritual/emotional support [] Crisis/trauma care [] Spiritual counseling [] Bereavement support [] Provided bereavement packet [] Provided Bible/devotional materials [] Provided toy/stuffed animal, coloring book to patient or family member [] Provided Communion [] Anointing/[place] [] Salvation [x] Completed spiritual assessment [] Other: Impact on Illness or Injury [] Angry [] Fearful [] Anxious [] Often cries [] Exhaustion [] Unable to work [] Unable to attend anabaptist [] Unable to walk/stand [] Unable to read [] Unable to drive [] Unable to eat/drink [] Unable to sleep [] Unable to be with family [] Patient intubated [] Other: Summary Time spent with patient 10 min
[2022-04-28 10:58] LABS: Glucose Point of Care 175 mg/dL (70-110)
[2022-04-28] MEDS: insulin lispro 100 unit/1 mL SUBCUT ×2 (11:25→18:42)
--- NOTE | 2022-04-28 14:55 | P.PN_ITS ---
Subjective Subjective: The patient had caffeine this morning and was not able to do the stress test. Chest pain or chest tightness. Shortness of breath is significant improved. Remains afebrile. No chest pain or palpitations Medications: Medication Review Details: Current Medications Acetaminophen (Acetaminophen 325 Mg Tablet) 650 mg PO Q6H PRN PRN Reason: Mild/Mod Pain Or Temp >/= 101 Albuterol Sulfate (Albuterol 2.5 Mg/3 Ml Neb) 2.5 mg INHALATION QID.RESPIRATORY PRN PRN Reason: SHORTNESS OF BREATH Last Admin: 04/28/22 07:48 Dose: 2.5 mg Amlodipine Besylate (Amlodipine 10 Mg Tablet) 10 mg PO DAILY [facility] Last Admin: 04/26/22 09:14 Dose: 10 mg Atorvastatin Calcium (Atorvastatin 40 Mg Tablet) 40 mg PO DAILY [facility] Last Admin: 04/28/22 09:47 Dose: 40 mg Bisacodyl (Bisacodyl 5 Mg Tablet) 10 mg PO DAILY PRN; Protocol PRN Reason: Constipation (see protocol) Budesonide (Budesonide 0.5 Mg/2 Ml Neb) 0.5 mg INHALATION BID.RESPIRATORY [facility] Last Admin: 04/28/22 07:48 Dose: 0.5 mg Carvedilol (Carvedilol 25 Mg Tablet) 25 mg PO BID [facility] Last Admin: 04/28/22 09:47 Dose: 25 mg Clopidogrel Bisulfate (Clopidogrel 75 Mg Tablet) 75 mg PO DAILY [facility] Last Admin: 04/28/22 09:47 Dose: 75 mg Dextrose (Dextrose 50% Syringe 50 Ml) 25 ml IVP ONCE PRN; Protocol PRN Reason: hypoglycemia protocol Dextrose (Dextrose 50% Syringe 50 Ml) 50 ml IVP PRN PRN; Protocol PRN Reason: hypoglycemia protocol Enoxaparin Sodium (Enoxaparin 40 Mg/0.4 Ml Syringe) 40 mg SUBCUT Q24H [facility] Last Admin: 04/28/22 01:18 Dose: 40 mg Glucagon (Glucagon 1 Mg/Ml Inj 1 Ml) 1 mg IM ONCE PRN; Protocol PRN Reason: Adult Acute Hypoglycemia Prot. Hydrochlorothiazide (Hydrochlorothiazide 25 Mg Tablet) 25 mg PO DAILY [facility] Last Admin: 04/28/22 09:47 Dose: 25 mg Dextrose (D5w) 500 mls @ 100 mls/hr IV ONCE PRN; Protocol PRN Reason: Adult Acute Hypoglycemia Prot Piperacillin Sod/Tazobactam (Sod 3.375 gm/ Sodium Chloride) 50 mls @ 12.5 mls/hr IV Q8H [facility]; Protocol Last Infusion: 04/28/22 14:33 Dose: Infused Insulin Human Lispro (Insulin Lispro 100 Unit/1 Ml) 0 unit SUBCUT TIDWM [facility]; Protocol Last Admin: 04/28/22 11:25 Dose: 2 unit Ipratropium [place] (Ipratropium 0.5 Mg/2.5 Ml Neb) 0.5 mg INHALATION QID.RESPIRATORY PRN PRN Reason: SHORTNESS OF BREATH Ondansetron HCl (Ondansetron 2 Mg/Ml Sdv 2 Ml) 4 mg IVP Q8H PRN PRN Reason: vomiting, or N/V if npo Pantoprazole Sodium (Pantoprazole Dr 40 Mg Tablet) 40 mg PO DAILY [facility] Last Admin: 04/28/22 09:47 Dose: 40 mg Potassium Chloride (Potassium Chloride Er 20 Meq Tablet) 20 meq PO DAILY [facility] Last Admin: 04/28/22 09:47 Dose: 20 meq Spironolactone (Spironolactone 25 Mg Tablet) 25 mg PO DAILY [facility] Last Admin: 04/28/22 09:47 Dose: 25 mg Vitals/I&O/Wt Last Vital Signs Temp 97.8 F 04/28/22 11:33 Pulse 68 04/28/22 11:33 Resp 16 04/28/22 11:33 BP 155/86 04/28/22 11:33 Pulse Ox 96 04/28/22 11:33 O2 Del Method 04/28/22 11:33 O2 Flow Rate 2 04/28/22 07:58 04/27/22 04/28/22 04/28/22 22:59 06:59 14:59 Intake Total 410 / 1765 50 / 1815 980 / 980 Balance 410 / 1765 50 / 1815 980 / 980 Physical Exam Narrative: GENERAL: The patient is alert, oriented x3. Not in any acute distress. HEENT: Minimal pallor with no icterus or lymphadenopathy.Oral cavity: There are no mucous membrane lesions. NECK: Trachea appears to be central. No masses noted. No JVD or thyromegaly appreciated. RESPIRATORY: Breath sounds noted bilaterally with no rales or rhonchi BREASTS: Deferred. HEART: The heart sounds are normal. No S3 or S4. Systolic murmur the left sternal border No pericardial rub ABDOMEN: No vessel pulsations or distention. No tenderness. No organomegaly appreciated. Bowel sounds are normally heard. : Deferred. RECTAL: Deferred. LYMPHATIC: No lymphadenopathy noted in the neck. EXTREMITIES: Trace edema with no cyanosis. MUSCULOSKELETAL: No acute joint deformities or swelling SKIN: There are no significant rashes or ecchymosis NEUROPSYCHIATRIC: The patient is alert and oriented x place and person. No focal motor deficit. Seems to have poor affect Data 04/28/22 02:42 04/28/22 02:42 Other Labs: Laboratory Last Values WBC 5.8 10^3/uL (4.0-10.0) 04/28/22 02:42 RBC 3.42 10^6/uL (4.1-5.3) L 04/28/22 02:42 Hgb 10.3 g/dL (11.7-16.6) L 04/28/22 02:42 Hct 31.3 % (42.0-52.0) L 04/28/22 02:42 MCV 91.5 fl (80-94) 04/28/22 02:42 MCH 30.1 pg (28.0-34.0) 04/28/22 02:42 MCHC 32.9 g/dL (30.0-36.0) 04/28/22 02:42 RDW 14.2 % (12.1-15.1) 04/28/22 02:42 Plt Count 218 10^3/cmm (130-400) 04/28/22 02:42 MPV 10.1 fL (7.4-10.4) 04/28/22 02:42 Neut % (Auto) 90.5 % 04/28/22 02:42 Lymph % (Auto) 4.7 % 04/28/22 02:42 [place] % (Auto) 3.8 % 04/28/22 02:42 Eos % (Auto) 0.0 % 04/28/22 02:42 Baso % (Auto) 0.3 % 04/28/22 02:42 Neut # (Auto) 5.23 10^3/uL (1.8-7.7) 04/28/22 02:42 Lymph # (Auto) 0.3 10^3/uL (0.8-4.8) L 04/28/22 02:42 [place] # (Auto) 0.2 10^3/uL (0.2-0.9) 04/28/22 02:42 Eos # (Auto) 0.0 10^3/uL (0.0-0.8) 04/28/22 02:42 Baso # (Auto) 0.0 10^3/uL (0.0-0.1) 04/28/22 02:42 Nucleated RBC % (auto) 0 % 04/28/22 02:42 Total Counted 100 (0-100) 04/25/22 22:03 Atypical Lymphs % 1.0 % (0-5) 04/25/22 22:03 Absolute Neutrophils 7.5 10^3/cmm (1.4-6.5) H 04/25/22 22:03 Segmented Neutrophils 73 % 04/25/22 22:03 Abs Segm Neuts (Man) 5.9 10/cmm (1.6-7.1) 04/25/22 22:03 Band Neutrophils 19.0 % 04/25/22 22:03 Abs Band Neuts (Man) 1.5 10^3/cmm (0.0-1.2) H 04/25/22 22:03 Absolute Lymphocytes 0.2 10^3/cmm (1.2-3.4) L 04/25/22 22:03 Lymphocytes (Manual) 1 % 04/25/22 22:03 Monocytes (Manual) 3.0 % 04/25/22 22:03 Absolute Monocytes 0.2 10^3/cmm (0.1-0.6) 04/25/22 22:03 Eosinophils (Manual) 2 % 04/25/22 22:03 Absolute Eosinophils 0.1 10^3/cmm (0.0-0.7) 04/25/22 22:03 Basophils (Manual) Not Reportable 04/25/22 22:03 Metamyelocytes 1.0 % 04/25/22 22:03 Nucleated RBCs # 0.0 /100WBC 04/28/22 02:42 Platelet Estimate Normal (Normal) 04/25/22 22:03 Polychromasia 1+ H 04/25/22 22:03 Anisocytosis 1+ H 02/17/23 22:03 Macrocytosis 1+ H 04/25/22 22:03 Sodium 140 mmol/L (136-145) 04/28/22 02:42 Potassium 2.2 mmol/L (3.5-5.1) L* D 04/28/22 02:42 Chloride 95 mmol/L (98-107) L 04/28/22 02:42 Carbon Dioxide 33 mmol/L (22-29) H 04/28/22 02:42 Anion Gap 14.2 (5-19) 04/28/22 02:42 BUN 16 mg/dL (6-20) 04/28/22 02:42 Creatinine 1.1 mg/dL (0.7-1.2) 04/28/22 02:42 GFR Calculation 68.5 mL/min (90-130) L 04/28/22 02:42 Glucose 139 mg/dL (65-115) H 04/28/22 02:42 POC Glucose 175 mg/dL (70-110) H 04/28/22 10:49 Calculated Osmolality 293 mOsm/kg (285-295) 04/28/22 02:42 Lactic Acid 1.1 mmol/L (0.5-2.2) 04/25/22 22:39 Calcium 10.0 mg/dL (8.5-10.5) 04/28/22 02:42 Magnesium 1.8 mg/dL (1.7-2.3) 04/28/22 02:42 Total Bilirubin 0.7 mg/dL (0.15-1.2) 04/25/22 22:03 AST 16 U/L (0-40) 04/25/22 22:03 ALT 35 U/L (0-41) 04/25/22 22:03 Alkaline Phosphatase 189 U/L (40-130) H 04/25/22 22:03 Troponin T Baseline 128 ng/L (0-15) H* 04/25/22 22:03 Troponin T 120 Minute 126.7 ng/L (0-15) H 04/26/22 00:05 Delta Troponin T -1.3 ABS# (0-10) L 04/26/22 00:05 Troponin T Hi Sens 6Hr 112.2 ng/L (0-15) H 04/26/22 04:15 Troponin T Hi Sens 6Hr Delta -15.8 ng/L (0-12) L 04/26/22 04:15 C-Reactive Protein 446.1 mg/L (0.0-4.9) H 04/25/22 22:03 NT-Pro-B Natriuret Pep 1204 pg/mL (0-125) H 04/25/22 22:03 Total Protein 5.3 g/dL (6.6-8.7) L 04/25/22 22:03 Albumin 3.1 g/dL (3.5-5.2) L 04/25/22 22:03 Globulin 2.2 g/dL (1.3-4.6) 04/25/22 22:03 Procalcitonin 12.88 ng/mL (0-0.5) H 04/27/22 03:15 Urine Color Yellow (Yellow) 04/25/22 22:03 Urine Appearance Clear (CLEAR) 04/25/22 22:03 Urine pH 7 (5-7) 04/25/22 22:03 Ur Specific [place] 1.005 (1.005-1.030) 04/25/22 22:03 Urine Protein 3+ (Negative) H 04/25/22 22:03 Urine Glucose (UA) Norm (Normal) 04/25/22 22:03 Urine Ketones Negative (Negative) 04/25/22 22:03 Urine Blood 3+ (Negative) H 04/25/22 22:03 Urine Nitrate Negative (Negative) 04/25/22 22:03 Urine Bilirubin Neg (Negative) 04/25/22 22:03 Urine Urobilinogen Neg mg/dL (Negative) 04/25/22 22:03 Ur Leukocyte Esterase Negative (Negative) 04/25/22 22:03 Urine RBC 5-10 /hpf (0-2) H 04/25/22 22:03 Urine WBC 0-4 /hpf (0-5) H 04/25/22 22:03 Ur Squamous Epith Cells 0-4 /hpf (0-5) H 04/25/22 22:03 Amorphous Sediment Not Reportable 04/25/22 22:03 Urine Bacteria Trace /hpf (NONE) 04/25/22 22:03 Urine Mucus Trace /hpf 04/25/22 22:03 Influenza Type A Ag negative (Negative) 04/25/22 22:03 Influenza Type B Ag negative (Negative) 04/25/22 22:03 SARS-CoV-2 Ag (Rapid) Negative (Negative) 04/25/22 22:03 Micro: Microbiology 04/27/22 Unknown MRSA Culture - Final Nose A&P Assessment and plan (1) Elevated troponin: It is possible that the patient may have had a non-ST elevation myocardial infarction. Troponin T is trending down. He apparently has no chest pain. He may benefit from a Myocardial perfusion imaging, to further evaluate his coronary status and decide on further management. Is going to be done tomorrow morning. (2) Atherosclerosis of coronary artery of [place] heart without angina pectoris: Patient had a PCI of the circumflex artery in the past. The stented segment was found patent in 2019. Consider repeat angiogram, if he has significant ischemia. (3) SOB (shortness of breath): This could be multifactorial. He has an element of diastolic heart failure. Metastatic lesions/underlying lung disease are other contributing factor's. May continue on the current dose of HCTZ and the spironolactone. The heart failure seems to be compensated at this point. (4) Metastatic renal cell carcinoma: At this point, it is not clear whether he has any metastatic lesions in the brain. Seems to have extensive mets into the retroperitoneal tissue and possibly into the lungs (5) Altered mental status: The etiology is not clear. Seems to be a recent event. Seems to be improving (6) Acute kidney injury: His BUN/creatinine is stable Plan The Myocardial perfusion imaging is postponed for tomorrow. Based on the results, further recommendations will be made Attestations Medical Necessity Statement*: Deferred to the primary Coding Level of Care Code 69984 Diagnoses Elevated troponin R77.8 Atherosclerosis of coronary artery of [place] heart without angina pectoris I25.10 SOB (shortness of breath) R06.02 Metastatic renal cell carcinoma C64.9 Altered mental status R41.82 Acute kidney injury N17.9
--- NOTE | 2022-04-28 16:59 | P.PN_ITS ---
Subjective Subjective: Unfortunately patient stress test could not be completed today as he was not n.p.o. He had some coffee this morning. We will attempt to obtain this test tomorrow morning. Left upper extremity cellulitis is improving today. Potassium this morning at 2.2 Medications: Reviewed: Yes Medication Review Details: Current Medications Acetaminophen (Acetaminophen 325 Mg Tablet) 650 mg PO Q6H PRN PRN Reason: Mild/Mod Pain Or Temp >/= 101 Albuterol Sulfate (Albuterol 2.5 Mg/3 Ml Neb) 2.5 mg INHALATION QID.RESPIRATORY PRN PRN Reason: SHORTNESS OF BREATH Last Admin: 04/28/22 07:48 Dose: 2.5 mg Amlodipine Besylate (Amlodipine 10 Mg Tablet) 10 mg PO DAILY [facility] Last Admin: 04/26/22 09:14 Dose: 10 mg Atorvastatin Calcium (Atorvastatin 40 Mg Tablet) 40 mg PO DAILY [facility] Last Admin: 04/28/22 09:47 Dose: 40 mg Bisacodyl (Bisacodyl 5 Mg Tablet) 10 mg PO DAILY PRN; Protocol PRN Reason: Constipation (see protocol) Budesonide (Budesonide 0.5 Mg/2 Ml Neb) 0.5 mg INHALATION BID.RESPIRATORY [facility] Last Admin: 04/28/22 07:48 Dose: 0.5 mg Carvedilol (Carvedilol 25 Mg Tablet) 25 mg PO BID [facility] Last Admin: 04/28/22 09:47 Dose: 25 mg Clopidogrel Bisulfate (Clopidogrel 75 Mg Tablet) 75 mg PO DAILY [facility] Last Admin: 04/28/22 09:47 Dose: 75 mg Dextrose (Dextrose 50% Syringe 50 Ml) 25 ml IVP ONCE PRN; Protocol PRN Reason: hypoglycemia protocol Dextrose (Dextrose 50% Syringe 50 Ml) 50 ml IVP PRN PRN; Protocol PRN Reason: hypoglycemia protocol Enoxaparin Sodium (Enoxaparin 40 Mg/0.4 Ml Syringe) 40 mg SUBCUT Q24H [facility] Last Admin: 04/28/22 01:18 Dose: 40 mg Glucagon (Glucagon 1 Mg/Ml Inj 1 Ml) 1 mg IM ONCE PRN; Protocol PRN Reason: Adult Acute Hypoglycemia Prot. Hydrochlorothiazide (Hydrochlorothiazide 25 Mg Tablet) 25 mg PO DAILY [facility] Last Admin: 04/28/22 09:47 Dose: 25 mg Dextrose (D5w) 500 mls @ 100 mls/hr IV ONCE PRN; Protocol PRN Reason: Adult Acute Hypoglycemia Prot Piperacillin Sod/Tazobactam (Sod 3.375 gm/ Sodium Chloride) 50 mls @ 12.5 mls/hr IV Q8H [facility]; Protocol Last Infusion: 04/28/22 14:33 Dose: Infused Insulin Human Lispro (Insulin Lispro 100 Unit/1 Ml) 0 unit SUBCUT TIDWM [facility]; Protocol Last Admin: 04/28/22 11:25 Dose: 2 unit Ipratropium [place] (Ipratropium 0.5 Mg/2.5 Ml Neb) 0.5 mg INHALATION QID.RESPIRATORY PRN PRN Reason: SHORTNESS OF BREATH Ondansetron HCl (Ondansetron 2 Mg/Ml Sdv 2 Ml) 4 mg IVP Q8H PRN PRN Reason: vomiting, or N/V if npo Pantoprazole Sodium (Pantoprazole Dr 40 Mg Tablet) 40 mg PO DAILY [facility] Last Admin: 04/28/22 09:47 Dose: 40 mg Potassium Chloride (Potassium Chloride Er 20 Meq Tablet) 20 meq PO DAILY [facility] Last Admin: 04/28/22 09:47 Dose: 20 meq Spironolactone (Spironolactone 25 Mg Tablet) 25 mg PO DAILY [facility] Last Admin: 04/28/22 09:47 Dose: 25 mg Vitals/I&O/Wt Last Vital Signs Temp 98.3 F 04/28/22 15:52 Pulse 69 04/28/22 15:52 Resp 15 04/28/22 15:52 BP 160/84 04/28/22 15:52 Pulse Ox 94 04/28/22 15:52 O2 Del Method 04/28/22 15:52 O2 Flow Rate 2 04/28/22 07:58 04/28/22 04/28/22 04/28/22 06:59 14:59 22:59 Intake Total 50 5 980 / 980 Balance 50 1814 980 / 980 Physical Exam Narrative: General: No acute distress, AO x3 HEENT: PERRLA, pupils bilaterally equal and reactive, pallors not present Chest: Normal vesicular breath sounds, no added sounds, equal good air entry bilaterally CVS: S1-S2 regular, no murmurs, no tachycardia, no gallops, no rubs Abdomen: Soft, nontender, no organomegaly, bowel sounds present Neuro: No focal deficits, no facial deformity, AO x3, power 5/5 in all limbs Extremities: improved left upper extremity cellulitis Data 04/28/22 02:42 04/28/22 02:42 Micro: Microbiology 04/27/22 Unknown MRSA Culture - Final Nose A&P Assessment and plan (1) Benign essential HTN: (2) Hyponatremia: (3) Elevated troponin: (4) Acute kidney injury superimposed on CKD: (5) Elevated procalcitonin: (6) Retroperitoneal mass: (7) Hypoxia: Plan Acute encephalopathy: Now resolved. Oriented x3. Recognizes family. CT head shows more focal/Symmetrical small area of low-attenuation in the left posterior parietal white matter. These may well represent an dditional focal area of chronic white matter ischemia/infarct. Given the provided history of cancer, a metastatic focus or other neoplasm is not entirely excluded. Changes related to multiple sclerosis or other demyelinating process might also be considered. ?As this appears to be a known lesion doubt he will get further benefit from MRI. Hold venlafaxine due to potential toxicity because of his encephalopathy in setting of RICARDA. Monitor creatinine. Severe hypokalemia: Down to 2.2 this morning. Repleted with 60 mEq potassium. We will check again this evening. Elevated troponin: Discussed with cardiology. Plan for stress test tomorrow. Originally was planned for today, however patient had coffee and therefore had to be deferred. We will attempt again tomorrow morning. TTE reviewed, normal EF, no gross WMA. Mild MVR. Cardiology consultation appreciated Continue carvedilol Plavix. Statin. Fluid overload/CHF: Reviewed FAUSTINA, output not charted. Discussed with cardiology, for now continue HCTZ and spironolactone, reassess. He has allergy to furosemide. TTE assessment as above. Left upper extremity cellulitis: Improving erythema. Swelling persist. Di scussed with him to elevate left upper extremity. Continue antibiotic treatment with piperacillin tazobactam. Duplex study no DVT. Soft tissue ultrasound no abscess. Negative blood culture Retroperitoneal mass: Reports known renal cancer. Sees an oncologist. Planned treatment was to start 04/29. Bilateral multiple pulmonary nodules concerning for possible metastatic disease. Follow-up as outpatient History of renal cell carcinoma status post right nephrectomy Hypoxia: Currently requiring minimal supplemental oxygen We will try and wean off nasal cannula, CODE STATUS: Full code DVT prophylaxis on Lovenox Attestations Medical Necessity Statement*: Plan to complete stress test tomorrow. If stress test normal, anticipate discharge in the upcoming 24 to 48 hours with transition to oral antibiotics. Currently needing IV medications. Coding Level of Care Code Acute Code for Chg Fwd Straight Forward/Low MDM includes number and complexity of problems actively addressed during encounter, amount and/or complexity of data reviewed/ordered and described risk of complication, morbidity or mortality of management as documented Diagnoses Benign essential HTN I10 Hyponatremia E87.1 Elevated troponin R77.8 Acute kidney injury superimposed on CKD N17.9; N18.9 Elevated procalcitonin R79.89 Retroperitoneal mass R19.00 Hypoxia R09.02
[2022-04-28 17:28] LABS: Glucose Point of Care 155 mg/dL (70-110)
[2022-04-28 17:58] LABS: Potassium 2.3 mmol/L (3.5-5.1)
[2022-04-28 21:36] LABS: Glucose Point of Care 221 mg/dL (70-110)
[2022-04-29] VITALS: BP 150/60; PULSE 67; RESP 20; TEMP 36.6
[2022-04-29] MEDS: piperacillin-tazobactam 3.375 GM in sodium chloride 0.9% (plus) 50 ML IV ×2 (03:20→10:56)
[2022-04-29 04:00] VITALS: BP 152/72; PULSE 92; RESP 16; TEMP 36.7; O2SAT 96
[2022-04-29 06:08] LABS: Basophils % 0.2 %; Hematocrit 31.8 % (42.0-52.0); Hemoglobin 10.3 g/dL (11.7-16.6); Lymphocytes # 0.3 10^3/uL (0.8-4.8); Mean Corpuscular HGB Conc 32.4 g/dL (30.0-36.0); Mean Corpuscular Hemoglobin 29.3 pg (28.0-34.0); Mean Corpuscular Volume 90.3 fl (80-94); Mean Platelet Volume 10.4 fL (7.4-10.4); Monocytes # 0.4 10^3/uL (0.2-0.9); Monocytes % 8.5 %; Neutrophils # 3.41 10^3/uL (1.8-7.7); Neutrophils % 80.7 %; Nucleated Red Blood Cells % 0 %; Platelet Count 266 10^3/cmm (130-400); Red Blood Count 3.52 10^6/uL (4.1-5.3); White Blood Count 4.2 10^3/uL (4.0-10.0)
[2022-04-29 06:22] LABS: Glucose Point of Care 195 mg/dL (70-110)
[2022-04-29 06:27] LABS: Anion Gap 13.6 (5-19); Blood Urea Nitrogen 12 mg/dL (6-20); Calcium 9.6 mg/dL (8.5-10.5); Carbon Dioxide 33 mmol/L (22-29); Chloride 95 mmol/L (98-107); Glomerular Filtration Rate 98.9 mL/min (90-130); Glucose 168 mg/dL (65-115); Osmolality Calculated 292 mOsm/kg (285-295); Sodium 139 mmol/L (136-145)
[2022-04-29 06:29] LABS: Potassium 2.6 mmol/L (3.5-5.1)
[2022-04-29 06:36] LABS: Glucose Point of Care 169 mg/dL (70-110)
[2022-04-29 08:00] VITALS: BP 164/90; BP 168/88; BP 186/92; PULSE 66; PULSE 75; PULSE 82
--- NOTE | 2022-04-29 08:00 | NMCV_ITS ---
NM danii perf SPECT r/s* [id number] Luis Vidales Age: 57 Gender: M : 1965 Exam Date: 04/29/2022 07:02 Ordering Phys: Addi Tracy MD ([email or web address]) Technologist: BRYAN Newell Exam Location: [facility] Indications: CHEST PAIN STRESS TEST Please see separate stress test report in [facility] for full findings IMAGE PROTOCOL Rest/Stress 1 Lexiscan Day Radiopharmaceutical Dose (mCi) Administration Site Administered by Rest: Tc-99m 10.9 IV BRYAN De Los Santos Sestamibi Stress:Tc-99m 32.7 IV BRYAN De [place] Santos Sestamibi Rest: 29-Apr-2022 60 Discovery 630 Stress: 29-Apr-2022 30 Discovery 630 0.4mg Lexiscan. Supine position only as patient was unable to lay prone. SPECT RESULTS Technical Quality: Excellent Raw Data Analysis: Normal Image Corrections: No attenuation or motion correction applied Summed Stress Score: 0 Summed Rest Score: 3 Summed Difference Score: 0 PERFUSION FINDINGS Small area of slightly decreased tracer uptake was noted in the inferolateral and apical lateral region. No significant reversibility was noted in this area FUNCTIONAL RESULTS (calculated via Gated SPECT) Stress Image LV EF (%): 65 Stress EDV (mL):124 TID: 1.09 Stress ESV (mL):43 FUNCTIONAL FINDINGS: Segmental wall motion analysis revealing no gross wall motion abnormalities IMPRESSIONS 1. Myocardial perfusion imaging revealing a small area of persistent decreased tracer uptake in the inferolateral and apical lateral regions suggesting myocardial scarring versus attenuation artifact. 2. Normal LV ejection fraction of 65%. 3. LV wall motion analysis revealing no gross wall motion abnormalities. 4. Normal LV volume 5. Low probability for coronary ischemia, based on the above findings Compared to the study from 07/26/2018, no significant coronary ischemia, was noted in the current study Dr Addi Tracy MD FAC (Electronically Signed) Final Date: 29 April 2022 13:13 S
[2022-04-29 08:36] VITALS: BP 154/91; PULSE 70
[2022-04-29] MEDS: lidocaine 1% 5 ML in potassium chloride premix 100 ML 26.25 ML IV (10:44)
[2022-04-29] MEDS: atorvastatin 40 mg Tablet PO (10:57)
[2022-04-29] MEDS: carvedilol 25 mg Tablet PO (10:57)
[2022-04-29] MEDS: clopidogrel 75 mg Tablet PO (10:57)
[2022-04-29] MEDS: potassium chloride ER 20 mEq Tablet 80 MEQ PO (10:57)
[2022-04-29] MEDS: spironolactone 25 mg Tablet PO (10:59)
[2022-04-29] MEDS: pantoprazole DR 40 mg Tablet PO (10:59)
[2022-04-29] MEDS: potassium chloride ER 20 mEq Tablet PO (11:00)
[2022-04-29] MEDS: insulin lispro 100 unit/1 mL SUBCUT ×2 (11:00→13:04)
[2022-04-29 11:29] LABS: Glucose Point of Care 176 mg/dL (70-110)
[2022-04-29 11:39] VITALS: RESP 16; TEMP 36.4; O2SAT 94
--- NOTE | 2022-04-29 12:17 | PC.SOCIAL ---
IMM Update pg 2 of IMM updated and reviewed w/ patient. Copy provided and Copy dated, initialed and placed in chart.
--- NOTE | 2022-04-29 13:24 | P.PN_ITS ---
Subjective Medications: Medication Review Details: Current Medications Acetaminophen (Acetaminophen 325 Mg Tablet) 650 mg PO Q6H PRN PRN Reason: Mild/Mod Pain Or Temp >/= 101 Albuterol Sulfate (Albuterol 2.5 Mg/3 Ml Neb) 2.5 mg INHALATION QID.RESPIRATORY PRN PRN Reason: SHORTNESS OF BREATH Last Admin: 04/28/22 07:48 Dose: 2.5 mg Aminophylline (Aminophylline 25 Mg/Ml Sdv 10 Ml) 25 mg IVP Q2M PRN PRN Reason: see dose instructions Stop: 04/30/22 07:00 Amlodipine Besylate (Amlodipine 10 Mg Tablet) 10 mg PO DAILY [facility] Last Admin: 04/26/22 09:14 Dose: 10 mg Atorvastatin Calcium (Atorvastatin 40 Mg Tablet) 40 mg PO DAILY [facility] Last Admin: 04/29/22 10:57 Dose: 40 mg Bisacodyl (Bisacodyl 5 Mg Tablet) 10 mg PO DAILY PRN; Protocol PRN Reason: Constipation (see protocol) Budesonide (Budesonide 0.5 Mg/2 Ml Neb) 0.5 mg INHALATION BID.RESPIRATORY JESSICA Last Admin: 04/29/22 09:12 Dose: Not Given Carvedilol (Carvedilol 25 Mg Tablet) 25 mg PO BID [facility] Last Admin: 04/29/22 10:57 Dose: 25 mg Clopidogrel Bisulfate (Clopidogrel 75 Mg Tablet) 75 mg PO DAILY [facility] Last Admin: 04/29/22 10:57 Dose: 75 mg Dextrose (Dextrose 50% Syringe 50 Ml) 25 ml IVP ONCE PRN; Protocol PRN Reason: hypoglycemia protocol Dextrose (Dextrose 50% Syringe 50 Ml) 50 ml IVP PRN PRN; Protocol PRN Reason: hypoglycemia protocol Enoxaparin Sodium (Enoxaparin 40 Mg/0.4 Ml Syringe) 40 mg SUBCUT Q24H [facility] Last Admin: 04/29/22 03:22 Dose: Not Given Glucagon (Glucagon 1 Mg/Ml Inj 1 Ml) 1 mg IM ONCE PRN; Protocol PRN Reason: Adult Acute Hypoglycemia Prot. Hydrochlorothiazide (Hydrochlorothiazide 25 Mg Tablet) 25 mg PO DAILY [facility] Last Admin: 04/28/22 09:47 Dose: 25 mg Dextrose (D5w) 500 mls @ 100 mls/hr IV ONCE PRN; Protocol PRN Reason: Adult Acute Hypoglycemia Prot Piperacillin Sod/Tazobactam (Sod 3.375 gm/ Sodium Chloride) 50 mls @ 12.5 mls/hr IV Q8H [facility]; Protocol Last Admin: 04/29/22 10:56 Dose: 12.5 mls/hr Insulin Human Lispro (Insulin Lispro 100 Unit/1 Ml) 0 unit SUBCUT TIDWM [facility]; Protocol Last Admin: 04/29/22 13:04 Dose: 2 unit Ipratropium [place] (Ipratropium 0.5 Mg/2.5 Ml Neb) 0.5 mg INHALATION QID.RESPIRATORY PRN PRN Reason: SHORTNESS OF BREATH Nitroglycerin (Nitroglycerin 0.4 Mg Sublingual Tablet) 0.4 mg SUBLINGUAL Q5M PRN PRN Reason: CHEST PAIN Stop: 04/30/22 07:00 Ondansetron HCl (Ondansetron 2 Mg/Ml Sdv 2 Ml) 4 mg IVP Q8H PRN PRN Reason: vomiting, or N/V if npo Ondansetron HCl (Ondansetron 2 Mg/Ml Sdv 2 Ml) 4 mg IVP Q2M PRN PRN Reason: NAUSEA Pantoprazole Sodium (Pantoprazole Dr 40 Mg Tablet) 40 mg PO DAILY [facility] Last Admin: 04/29/22 10:59 Dose: 40 mg Potassium Chloride (Potassium Chloride Er 20 Meq Tablet) 20 meq PO DAILY [facility] Last Admin: 04/29/22 11:00 Dose: 20 meq Regadenoson (Regadenoson 0.4 Mg/5 Ml Syringe) 0.4 mg IVP ONCE PRN PRN Reason: Lexiscan Stress Test Spironolactone (Spironolactone 25 Mg Tablet) 25 mg PO DAILY [facility] Last Admin: 04/29/22 10:59 Dose: 25 mg Vitals/I&O/Wt Last Vital Signs Temp 97.6 F 04/29/22 11:39 Pulse 70 04/29/22 08:36 Resp 16 04/29/22 11:39 BP 154/91 04/29/22 08:36 Pulse Ox 94 04/29/22 11:39 O2 Del Method 04/29/22 11:39 O2 Flow Rate 2 04/28/22 20:00 04/28/22 04/29/22 04/29/22 22:59 06:59 14:59 Intake Total 290 / 1270 98.438 / 1368.438 275 / 275 Output Total 250 / 250 Balance 290 / 1270 -151.562 / 1118.438 275 / 275 Physical Exam Narrative: GENERAL: The patient is alert, oriented x3. Not in any acute distress. HEENT: Minimal pallor with no icterus or lymphadenopathy.Oral cavity: There are no mucous membrane lesions. NECK: Trachea appears to be central. No masses noted. No JVD or thyromegaly appreciated. RESPIRATORY: Breath sounds noted bilaterally with no rales or rhonchi BREASTS: Deferred. HEART: The heart sounds are normal. No S3 or S4. Systolic murmur the left sternal border No pericardial rub ABDOMEN: No vessel pulsations or distention. No tenderness. No organomegaly appreciated. Bowel sounds are normally heard. : Deferred. RECTAL: Deferred. LYMPHATIC: No lymphadenopathy noted in the neck. EXTREMITIES: Trace edema with no cyanosis. MUSCULOSKELETAL: No acute joint deformities or swelling SKIN: There are no significant rashes or ecchymosis NEUROPSYCHIATRIC: The patient is alert and oriented x place and person. No focal motor deficit. Seems to have poor affect Data 04/29/22 05:29 04/29/22 05:29 Other Labs: Laboratory Last Values WBC 4.2 10^3/uL (4.0-10.0) 04/29/22 05: RBC 3.52 10^6/uL (4.1-5.3) L 04/29/22 05:29 Hgb 10.3 g/dL (11.7-16.6) L 04/29/22 05:29 Hct 31.8 % (42.0-52.0) L 04/29/22 05:29 MCV 90.3 fl (80-94) 04/29/22 05: MCH 29.3 pg (28.0-34.0) 04/29/22 05:29 MCHC 32.4 g/dL (30.0-36.0) 04/29/22 05:29 RDW 14.0 % (12.1-15.1) 04/29/22 05:29 Plt Count 266 10^3/cmm (130-400) 04/29/22 05:29 MPV 10.4 fL (7.4-10.4) 04/29/22 05:29 Neut % (Auto) 80.7 % 04/29/22 05:29 Lymph % (Auto) 8.0 % 04/29/22 05:29 [place] % (Auto) 8.5 % 04/29/22 05:29 Eos % (Auto) 0.0 % 04/29/22 05:29 Baso % (Auto) 0.2 % 04/29/22 05:29 Neut # (Auto) 3.41 10^3/uL (1.8-7.7) 04/29/22 05:29 Lymph # (Auto) 0.3 10^3/uL (0.8-4.8) L 04/29/22 05:29 [place] # (Auto) 0.4 10^3/uL (0.2-0.9) 04/29/22 05:29 Eos # (Auto) 0.0 10^3/uL (0.0-0.8) 04/29/22 05:29 Baso # (Auto) 0.0 10^3/uL (0.0-0.1) 04/29/22 05:29 Nucleated RBC % (auto) 0 % 04/29/22 05:29 Total Counted 100 (0-100) 04/25/22 22:03 Atypical Lymphs % 1.0 % (0-5) 04/25/22 22:03 Absolute Neutrophils 7.5 10^3/cmm (1.4-6.5) H 04/25/22 22:03 Segmented Neutrophils 73 % 04/25/22 22:03 Abs Segm Neuts (Man) 5.9 10/cmm (1.6-7.1) 04/25/22 22:03 Band Neutrophils 19.0 % 04/25/22 22:03 Abs Band Neuts (Man) 1.5 10^3/cmm (0.0-1.2) H 04/25/22 22:03 Absolute Lymphocytes 0.2 10^3/cmm (1.2-3.4) L 04/25/22 22:03 Lymphocytes (Manual) 1 % 04/25/22 22:03 Monocytes (Manual) 3.0 % 04/25/22 22:03 Absolute Monocytes 0.2 10^3/cmm (0.1-0.6) 04/25/22 22:03 Eosinophils (Manual) 2 % 04/25/22 22:03 Absolute Eosinophils 0.1 10^3/cmm (0.0-0.7) 04/25/22 22:03 Basophils (Manual) Not Reportable 04/25/22 22:03 Metamyelocytes 1.0 % 04/25/22 22:03 Nucleated RBCs # 0.0 /100WBC 04/29/22 05:29 Platelet Estimate Normal (Normal) 04/25/22 22:03 Polychromasia 1+ H 04/25/22 22:03 Anisocytosis 1+ H 04/25/22 22:03 Macrocytosis 1+ H 04/25/22 22:03 Sodium 139 mmol/L (136-145) 04/29/22 05:29 Potassium 2.6 mmol/L (3.5-5.1) L* 04/29/22 05:29 Chloride 95 mmol/L (98-107) L 04/29/22 05:29 Carbon Dioxide 33 mmol/L (22-29) H 04/29/22 05:29 Anion Gap 13.6 (5-19) 04/29/22 05:29 BUN 12 mg/dL (6-20) 04/29/22 05:29 Creatinine 0.8 mg/dL (0.7-1.2) 04/29/22 05:29 GFR Calculation 98.9 mL/min (90-130) 04/29/22 05:29 Glucose 168 mg/dL (65-115) H 04/29/22 05:29 POC Glucose 176 mg/dL (70-110) H 04/29/22 11:20 Calculated Osmolality 292 mOsm/kg (285-295) 04/29/22 05:29 Lactic Acid 1.1 mmol/L (0.5-2.2) 04/25/22 22:39 Calcium 9.6 mg/dL (8.5-10.5) 04/29/22 05:29 Magnesium 1.8 mg/dL (1.7-2.3) 04/28/22 02:42 Total Bilirubin 0.7 mg/dL (0.15-1.2) 04/25/22 22:03 AST 16 U/L (0-40) 04/25/22 22:03 ALT 35 U/L (0-41) 04/25/22 22:03 Alkaline Phosphatase 189 U/L (40-130) H 04/25/22 22:03 Troponin T Baseline 128 ng/L (0-15) H* 04/25/22 22:03 Troponin T 120 Minute 126.7 ng/L (0-15) H 04/26/22 00:05 Delta Troponin T -1.3 ABS# (0-10) L 04/26/22 00:05 Troponin T Hi Sens 6Hr 112.2 ng/L (0-15) H 04/26/22 04:15 Troponin T Hi Sens 6Hr Delta -15.8 ng/L (0-12) L 04/26/22 04:15 C-Reactive Protein 446.1 mg/L (0.0-4.9) H 04/25/22 22:03 NT-Pro-B Natriuret Pep 1204 pg/mL (0-125) H 04/25/22 22:03 Total Protein 5.3 g/dL (6.6-8.7) L 04/25/22 22:03 Albumin 3.1 g/dL (3.5-5.2) L 04/25/22 22:03 Globulin 2.2 g/dL (1.3-4.6) 04/25/22 22:03 Procalcitonin 12.88 ng/mL (0-0.5) H 04/27/22 03:15 Urine Color Yellow (Yellow) 04/25/22 22:03 Urine Appearance Clear (CLEAR) 04/25/22 22:03 Urine pH 7 (5-7) 04/25/22 22:03 Ur Specific [place] 1.005 (1.005-1.030) 04/25/22 22:03 Urine Protein 3+ (Negative) H 04/25/22 22:03 Urine Glucose (UA) Norm (Normal) 04/25/22 22:03 Urine Ketones Negative (Negative) 04/25/22 22:03 Urine Blood 3+ (Negative) H 04/25/22 22:03 Urine Nitrate Negative (Negative) 04/25/22 22:03 Urine Bilirubin Neg (Negative) 04/25/22 22:03 Urine Urobilinogen Neg mg/dL (Negative) 04/25/22 22:03 Ur Leukocyte Esterase Negative (Negative) 04/25/22 22:03 Urine RBC 5-10 /hpf (0-2) H 04/25/22 22:03 Urine WBC 0-4 /hpf (0-5) H 04/25/22 22:03 Ur Squamous Epith Cells 0-4 /hpf (0-5) H 04/25/22 22:03 Amorphous Sediment Not Reportable 04/25/22 22:03 Urine Bacteria Trace /hpf (NONE) 04/25/22 22:03 Urine Mucus Trace /hpf 04/25/22 22:03 Influenza Type A Ag negative (Negative) 04/25/22 22:03 Influenza Type B Ag negative (Negative) 04/25/22 22:03 SARS-CoV-2 Ag (Rapid) Negative (Negative) 04/25/22 22:03 Micro: Microbiology 04/27/22 Unknown MRSA Culture - Final Nose A&P Assessment and plan (1) Elevated troponin: Most likely due to type II NM. The Myocardial perfusion imaging is on the showing no evidence of ischemia. May continue on the current medications. (2) Atherosclerosis of coronary artery of ruby heart without angina pectoris: Patient had a PCI of the circumflex artery in the past. The stented segment was found patent in 2019. Based on the perfusion scan findings, he may not require any further investigation at this point. May continue on the current medications (3) SOB (shortness of breath): Currently the patient seems to be stable. The heart failure seems to be compensated. Metastatic lesions/underlying lung disease are other contributing factor's. Because of the persistent hypokalemia, I may discontinue the HCTZ and continue on the spironolactone (4) Metastatic renal cell carcinoma: At this point, it is not clear whether he has any metastatic lesions in the brain. Seems to have extensive mets into the retroperitoneal tissue and possibly into the lungs (5) Altered mental status: Has significant improvement. (6) Acute kidney injury: His BUN/creatinine is stable. Potassium is 2.6. He is getting IV and p.o. potassium supplements Plan Since the patient is a coronary status seems to be stable, he may not require any further cardiac intervention at this point. Potassium supplement may be continued. Attestations Medical Necessity Statement*: Deferred to the primary Coding Level of Care Code 27451 Diagnoses Elevated troponin R77.8 Atherosclerosis of coronary artery of ruby heart without angina pectoris I25. 10 SOB (shortness of breath) R06.02 Metastatic renal cell carcinoma C64.9 Altered mental status R41.82 Acute kidney injury N17.9
[2022-04-29] MEDS: ipratropium 0.5 mg/2.5 mL Neb INHALATION (13:25)
[2022-04-29] MEDS: albuterol 2.5 mg/3 mL Neb INHALATION (13:25)
[2022-04-29 13:31] VITALS: PULSE 66; RESP 18; O2SAT 91
--- NOTE | 2022-04-29 14:36 | P.DS_ITS ---
Discharge Providers Date of Admission: 04/26/22 02:06 Date of Discharge: April 29, 2022 Attending Provider at Admission: Kenji Rodriguez MD Attending Provider at Discharge: Nettie Gould MD Primary Care Provider: Steph Trinidad APN Diagnoses at Discharge Discharge Diagnosis (1) Elevated troponin: Status: Acute (2) Atherosclerosis of coronary artery of [place] heart without angina pectoris: Status: Acute (3) SOB (shortness of breath): Status: Acute (4) Metastatic renal cell carcinoma: Status: Acute (5) Altered mental status: Status: Acute (6) Acute kidney injury: Status: Acute Reason for Visit Reason for Visit: [facility] Hospital Course Hospital Course 57 year old male with past medical history of renal cell carcinoma status post right nephrectomy , hypertension coronary artery disease, testicular mass, COVID-19 pneumonia, came in today with chief complaint of generalized weakness, predominantly in bilateral lower extremity, having difficulty with ambulation. There was also some concern regarding possible confusion at home.He was also complaining of some shortness of breath.Denied any chest pain, fever cough, nausea vomiting, abdominal pain. Hospital course as below: 1. Acute encephalopathy: Now resolved.?? Patient is back to his baseline, he is alert awake oriented x3.? Recognizes family. CT head shows more focal/Symmetrical small area of low-attenuation in the left posterior parietal white matter. These may well represent an dditional focal area of chronic white matter ischemia/infarct. Given the provided history of cancer, a metastatic focus or other neoplasm is not entirely excluded. Changes related to multiple sclerosis or other demyelinating process might also be considered. ?As this appears to be a known lesion doubt he will get further benefit from MRI. Patient reported that his oncologist is aware of the brain mass. Patient follows typically with oncologist at [facility]. 2. Elevated troponin:?Initially with concern for NSTEMI. Patient was seen by cardiology service. He underwent a stress test this morning which showed no evidence of acute ischemia. Elevated troponin was thought to be related to type II DC. Recommended to continue treatment with Plavix, carvedilol, gemfibrozil and losartan at discharge. Discussed with cardiology.? Plan for stress test tomorrow.? Originally was planned for today, however patient had coffee and therefore had to be deferred.? We will attempt again tomorrow morning.? TTE reviewed, normal EF, no gross WMA.? Mild MVR.? Cardiology consultation appreciated Continue carvedilol Plavix.? Statin. 3. Severe hypokalemia: Chlorthalidone has been held. Patient was tried on HCTZ during this admission, however it is being discontinued due to severe hypokalemia 4. Fluid overload/CHF: Initially patient was started on HCTZ and spironolactone. Hydrochlorothiazide has been discontinued at discharge due to persistent hypokalemia. Echocardiogram showed LVEF of 60%, no gross wall motion abnormalities. He had a thickened aortic valve, mild to moderate tricuspid valve regurgitation, no pericardial effusion or intracardiac masses. At best this would be classified as heart failure with preserved ejection fraction, likely to be acute on chronic. This is currently compensated. Patient will likely benefit from head of bed elevation to about 30 degrees to help help with his dyspnea. 5. Left upper extremity cellulitis:?Improving erythema.? Swelling persist.? Discussed with him to elevate left upper extremity.? Received antibiotic treatment with piperacillin tazobactam.? Duplex study no DVT.? Soft tissue ultrasound no abscess.? Negative blood culture Transition to p.o. Augmentin and doxycycline at the time of discharge. 6. RICARDA: present on admission, now resolved Retroperitoneal mass: Reports known renal cancer.? Sees an oncologist.? Planned treatment was to start 04/29. Bilateral multiple pulmonary nodules concerning for possible metastatic disease.? Follow-up as outpatient History of renal cell carcinoma status post right nephrectomy CODE STATUS: Full code DVT prophylaxis on Lovenox Patient is being discharged today in a chronically ill but best optimized state today. Physical Exam Narrative: General: No acute distress, AO x3 HEENT: PERRLA, pupils bilaterally equal and reactive, pallors not present Chest: Normal vesicular breath sounds, no added sounds, equal good air entry bilaterally CVS: S1-S2 regular, no murmurs, no tachycardia, no gallops, no rubs Abdomen: Soft, nontender, no organomegaly, bowel sounds present Neuro: No focal deficits, no facial deformity, AO x3, power 5/5 in all limbs Discharge Data Studies Completed and Pending Completed Studies During Hospitalization Category Date Time Status CT chest abdomen pelvis [[place] [id number] Cat Scan 04/25/22 23:30 Completed ] Stat CT head wo con* [id number] Stat Cat Scan 04/25/22 23:27 Completed Cardiac Stress Test MIBI [Sestamibi Stress Test Request Exams 04/27/22 21:49 Draft ] Routine XR chest 1V portable [id number] Stat Exams 04/25/22 21:48 Completed NM danii perf SPECT r/s* [id number] Routine Nuc Med 04/29/22 08:00 Completed CV. echo complete* [id number] Routine Ultrasound 04/26/22 04:15 Completed US renal BI* [id number] Routine Ultrasound 04/26/22 20:46 Completed US soft tissue/extremity [id number] Routine Ultrasound 04/26/22 02:58 Completed US venous duplex upper extremity LT [CV venous duplex Ultrasound 04/26/22 02:[place] [id number]] Routine Pending at discharge Category Date Time Status Blood Culture Stat Lab 04/25/22 22:15 Results Urea Nitrogen,Urine Random Routine Lab 04/26/22 20:47 Ordered Urine Creatinine Routine Lab 04/26/22 20:47 Ordered Urine Sodium [Urine Random Sodium] Routine Lab 04/26/22 20:47 Ordered Radiology Impressions Chest X-Ray 04/25/22 21:48 IMPRESSION: 1. Mild bilateral lower lung opacities, see above discussion. 2. Other findings discussed above. Head CT 04/25/22 23:27 IMPRESSION: 1. No acute intracranial hemorrhage or mass effect. 2. Mild diffuse white matter changes, likely from microvascular disease. 3. More focal/asymmetrical small area of low attenuation in the left posterior parietal white matter. Please see above details/discussion. 4. No definite acute infarct by CT, see above. 5. Paranasal sinus findings as discussed above. 6. Other findings discussed above. Chest/Abdomen/Pelvis CT 04/25/22 23:30 IMPRESSION: Numerous bilateral pulmonary nodules worrisome for pulmonary metastasis. Comparison with prior examinations suggested. IMPRESSION: 1. Large left retroperitoneal soft tissue mass worrisome for malignancy, possibly of adrenal origin. Further evaluation with PET CT scan, or needle biopsy recommended. 2. Right nephrectomy 3. Other non urgent findings as described above. COMMENTS: THIS REPORT CONTAINS FINDINGS THAT MAY BE CRITICAL TO PATIENT CARE. The findings were verbally communicated via telephone conference with Dr Rodriguez at 12:59 AM INSTRUCTIONAL TECHNOLOGIST on 04/26/2022. The findings were acknowledged and understood. Soft Tissue Ultrasound 04/26/22 02:58 IMPRESSION: No visible soft tissue abscess, details above. Venous Duplex 04/26/22 02:58 IMPRESSION: No evidence of acute left upper extremity DVT. Renal Ultrasound 04/26/22 20:46 IMPRESSION: 1. Prior right nephrectomy. 2. No hydronephrosis of the left kidney. 3. Other findings discussed above. Micro Laboratory Results WBC 4.2 10^3/uL (4.0-10.0) 04/29/22 05:29 RBC 3.52 10^6/uL (4.1-5.3) L 04/29/22 05:29 Hgb 10.3 g/dL (11.7-16.6) L 04/29/22 05:29 Hct 31.8 % (42.0-52.0) L 04/29/22 05:29 MCV 90.3 fl (80-94) 04/29/22 05:29 MCH 29.3 pg (28.0-34.0) 04/29/22 05:29 MCHC 32.4 g/dL (30.0-36.0) 04/29/22 05:29 RDW 14.0 % (12.1-15.1) 04/29/22 05:29 Plt Count 266 10^3/cmm (130-400) 04/29/22 05:29 MPV 10.4 fL (7.4-10.4) 04/29/22 05:29 Neut % (Auto) 80.7 % 04/29/22 05:29 Lymph % (Auto) 8.0 % 04/29/22 05:29 [place] % (Auto) 8.5 % 04/29/22 05:29 Eos % (Auto) 0.0 % 04/29/22 05:29 Baso % (Auto) 0.2 % 04/29/22 05:29 Neut # (Auto) 3.41 10^3/uL (1.8-7.7) 04/29/22 05:29 Lymph # (Auto) 0.3 10^3/uL (0.8-4.8) L 04/29/22 05:29 [place] # (Auto) 0.4 10^3/uL (0.2-0.9) 04/29/22 05:29 Eos # (Auto) 0.0 10^3/uL (0.0-0.8) 04/29/22 05:29 Baso # (Auto) 0.0 10^3/uL (0.0-0.1) 04/29/22 05:29 Nucleated RBC % (auto) 0 % 04/29/22 05:29 Total Counted 100 (0-100) 04/25/22 22:03 Atypical Lymphs % 1.0 % (0-5) 04/25/22 22:03 Absolute Neutrophils 7.5 10^3/cmm (1.4-6.5) H 04/25/22 22:03 Segmented Neutrophils 73 % 04/25/22 22:03 Abs Segm Neuts (Man) 5.9 10/cmm (1.6-7.1) 04/25/22 22:03 Band Neutrophils 19.0 % 04/25/22 22:03 Abs Band Neuts (Man) 1.5 10^3/cmm (0.0-1.2) H 04/25/22 22:03 Absolute Lymphocytes 0.2 10^3/cmm (1.2-3.4) L 04/25/22 22:03 Lymphocytes (Manual) 1 % 04/25/22 22:03 Monocytes (Manual) 3.0 % 04/25/22 22:03 Absolute Monocytes 0.2 10^3/cmm (0.1-0.6) 04/25/22 22:03 Eosinophils (Manual) 2 % 04/25/22 22:03 Absolute Eosinophils 0.1 10^3/cmm (0.0-0.7) 04/25/22 22:03 Basophils (Manual) Not Reportable 04/25/22 22:03 Metamyelocytes 1.0 % 04/25/22 22:03 Nucleated RBCs # 0.0 /100WBC 04/29/22 05:29 Platelet Estimate Normal (Normal) 04/25/22 22:03 Polychromasia 1+ H 04/25/22 22:03 Anisocytosis 1+ H 04/25/22 22:03 Macrocytosis 1+ H 04/25/22 22:03 Sodium 139 mmol/L (136-145) 04/29/22 05:29 Potassium 2.6 mmol/L (3.5-5.1) L* 04/29/22 05:29 Chloride 95 mmol/L (98-107) L 04/29/22 05:29 Carbon Dioxide 33 mmol/L (22-29) H 04/29/22 05:29 Anion Gap 13.6 (5-19) 04/29/22 05:29 BUN 12 mg/dL (6-20) 04/29/22 05:29 Creatinine 0.8 mg/dL (0.7-1.2) 04/29/22 05:29 GFR Calculation 98.9 mL/min (90-130) 04/29/22 05:29 Glucose 168 mg/dL (65-115) H 04/29/22 05:29 POC Glucose 176 mg/dL (70-110) H 04/29/22 11:20 Calculated Osmolality 292 mOsm/kg (285-295) 04/29/22 05:29 Lactic Acid 1.1 mmol/L (0.5-2.2) 04/25/22 22:39 Calcium 9.6 mg/dL (8.5-10.5) 04/29/22 05:29 Magnesium 1.8 mg/dL (1.7-2.3) 04/28/22 02:42 Total Bilirubin 0.7 mg/dL (0.15-1.2) 04/25/22 22:03 AST 16 U/L (0-40) 04/25/22 22:03 ALT 35 U/L (0-41) 04/25/22 22:03 Alkaline Phosphatase 189 U/L (40-130) H 04/25/22 22:03 Troponin T Baseline 128 ng/L (0-15) H* 04/25/22 22:03 Troponin T 120 Minute 126.7 ng/L (0-15) H 04/26/22 00:05 Delta Troponin T -1.3 ABS# (0-10) L 04/26/22 00:05 Troponin T Hi Sens 6Hr 112.2 ng/L (0-15) H 04/26/22 04:15 Troponin T Hi Sens 6Hr Delta -15.8 ng/L (0-12) L 04/26/22 04:15 C-Reactive Protein 446.1 mg/L (0.0-4.9) H 04/25/22 22:03 NT-Pro-B Natriuret Pep 1204 pg/mL (0-125) H 04/25/22 22:03 Total Protein 5.3 g/dL (6.6-8.7) L 04/25/22 22:03 Albumin 3.1 g/dL (3.5-5.2) L 04/25/22 22:03 Globulin 2.2 g/dL (1.3-4.6) 04/25/22 22:03 Procalcitonin 12.88 ng/mL (0-0.5) H 04/27/22 03:15 Urine Color Yellow (Yellow) 04/25/22 22:03 Urine Appearance Clear (CLEAR) 04/25/22 22:03 Urine pH 7 (5-7) 04/25/22 22:03 Ur Specific [place] 1.005 (1.005-1.030) 04/25/22 22:03 Urine Protein 3+ (Negative) H 04/25/22 22:03 Urine Glucose (UA) Norm (Normal) 04/25/22 22:03 Urine Ketones Negative (Negative) 04/25/22 22:03 Urine Blood 3+ (Negative) H 04/25/22 22:03 Urine Nitrate Negative (Negative) 04/25/22 22:03 Urine Bilirubin Neg (Negative) 04/25/22 22:03 Urine Urobilinogen Neg mg/dL (Negative) 04/25/22 22:03 Ur Leukocyte Esterase Negative (Negative) 04/25/22 22:03 Urine RBC 5-10 /hpf (0-2) H 04/25/22 22:03 Urine WBC 0-4 /hpf (0-5) H 04/25/22 22:03 Ur Squamous Epith Cells 0-4 /hpf (0-5) H 04/25/22 22:03 Amorphous Sediment Not Reportable 04/25/22 22:03 Urine Bacteria Trace /hpf (NONE) 04/25/22 22:03 Urine Mucus Trace /hpf 04/25/22 22:03 Influenza Type A Ag negative (Negative) 04/25/22 22:03 Influenza Type B Ag negative (Negative) 04/25/22 22:03 SARS-CoV-2 Ag (Rapid) Negative (Negative) 04/25/22 22:03 Vitals Last Vital Signs Temp 97.6 F 04/29/22 11:39 Pulse 66 04/29/22 13:31 Resp 18 04/29/22 13:31 BP 154/91 04/29/22 08:36 Pulse Ox 91 04/29/22 13:31 O2 Del Method 04/29/22 13:31 O2 Flow Rate 2 04/28/22 20:00 Discharge Plan Discharge Patient Disposition: Home Health Service Condition: Stable Prescriptions: New amoxicillin-pot clavulanate 875-125 mg tablet 1 tab PO BID 7 Days Qty: 14 0RF doxycycline hyclate 100 mg capsule 100 mg PO BID 7 Days Qty: 14 0RF Continued albuterol sulfate [Proventil HFA] 90 mcg/actuation HFA aerosol inhaler 2 puff INHALATION Q6H PRN (Reason: SOB) atorvastatin 40 mg tablet 40 mg PO DAILY gemfibrozil 600 mg tablet 600 mg PO BID clopidogrel 75 mg tablet 75 mg PO DAILY Qty: 90 3RF amlodipine 10 mg tablet 10 mg PO DAILY 90 Days Qty: 90 3RF potassium chloride 8 mEq capsule, extended release 8 meq PO DAILY Qty: 90 3RF carvedilol 25 mg tablet 25 mg PO BID Qty: 180 3RF Rx Instructions: must administer with a meal/food fluticasone propionate 220 mcg/actuation Hfa Aerosol Inhaler 2 puff INHALATION BID benzonatate 100 mg Capsule 200 mg PO TID PRN (Reason: Cough) Qty: 90 0RF metformin 500 mg tablet 500 mg PO BID Qty: 60 0RF (DME) diabetic supplies, miscellan. Misc See Rx Instructions .Route Qty: 60 3RF Rx Instructions: Glucometer and 60 strips lansoprazole 30 mg capsule,delayed release(DR/EC) 30 mg PO DAILY Januvia 100 mg tablet 100 mg PO DAILY Lenvima 14 mg/day(10 mg x 1-4 mg x 1) Capsule 14 mg PO BID Ozempic 0.25 mg or 0.5 mg(2 mg/1.5 mL) Pen Injector 0.25 mg SUBCUT Q7D losartan 100 mg tablet 50 mg PO DAILY Changed spironolactone 25 mg Tablet 25 mg PO DAILY 30 Days Qty: 30 0RF Held venlafaxine 37.5 mg capsule,extended release 24hr 37.5 mg PO DAILY Hold Instructions: Resume on 05/13/22. hold until follow up with primary care provider Discontinued chlorthalidone 25 mg tablet 25 mg PO DAILY 30 Days Qty: 30 5RF Hold Instructions: Resume on 04/15/21. omeprazole 40 mg Capsule,Delayed Release(Dr/Ec) 40 mg PO DAILY clonidine HCl 0.2 mg tablet 0.2 mg PO DAILY PRN (Reason: Blood Pressure) famotidine 20 mg tablet 20 mg PO BID Discharge Orders: Discharge Order (Routine); Ordered 04/29/22 Ordered By: Nettie Gould Other Ambulatory Orders: DME: Hospital Bed (Order) Location: None Selected Ordered By: Nettie Gould DME: Miscellaneous (Order) Location: None Selected Ordered By: Nettie Gould Referrals: [facility] Opal [facility] [Other] () [facility] [Other] Patient Instructions: Opioid Safety Discharge Attestations Time Spent in Discharge Care*: greater than 30 min Quality Metrics Clinical Quality Measures [ No reported AMI, CVA or VTE this stay] Coding Level of Care Code 28288 Total time (in minutes) for Discharge: 45 Diagnoses Elevated troponin R77.8 Atherosclerosis of coronary artery of [place] heart without angina pectoris I25.10 SOB (shortness of breath) R06.02 Metastatic renal cell carcinoma C64.9 Altered mental status R41.82 Acute kidney injury N17.9
== END 2022-04-29 17:12 | disposition home health service (06) | DRG 682 ==
LOC: ER 23:32 → MEDSURG 04-26 01:55
PROVIDERS: Internal Medicine; Admitting Provider Internal Medicine; Emergency Provider Emergency Medicine; PCP Nurse Practitioner Family; Visit Provider Student in an Organized Health Care Education/Training Program
DX: N17.9 Acute kidney failure, unspecified (principal); I21.A1 Myocardial infarction type 2; I50.33 Acute on chronic diastolic (congestive) heart failure; G93.40 Encephalopathy, unspecified; C64.1 Malignant neoplasm of right kidney, except renal pelvis; C78.02 Secondary malignant neoplasm of left lung; C78.01 Secondary malignant neoplasm of right lung; C78.6 Secondary malignant neoplasm of retroperitoneum and peritoneum; I13.0 Hypertensive heart and chronic kidney disease with heart failure and stage 1 through stage 4 chronic kidney disease, or unspecified chronic kidney disease; L03.114 Cellulitis of left upper limb; E87.1 Hypo-osmolality and hyponatremia; Z90.5 Acquired absence of kidney; N18.9 Chronic kidney disease, unspecified; I25.10 Atherosclerotic heart disease of native coronary artery without angina pectoris; Z95.5 Presence of coronary angioplasty implant and graft; E87.6 Hypokalemia; I07.1 Rheumatic tricuspid insufficiency; Z79.02 Long term (current) use of antithrombotics/antiplatelets; Z79.51 Long term (current) use of inhaled steroids; M10.9 Gout, unspecified; E86.0 Dehydration; F17.220 Nicotine dependence, chewing tobacco, uncomplicated; Z87.01 Personal history of pneumonia (recurrent); Z86.73 Personal history of transient ischemic attack (TIA), and cerebral infarction without residual deficits
CPT/HCPCS: 36415; 36416; 70450; 71045; 71250; 74176; 76770; 76882; 78452; 80048; 80053; 81001; 82962; 83605; 83735; 83880; 84132; 84145; 84484; 85007; 85025; 86140; 87040; 87426; 87641; 87804; 93005; 93017; 93306; 93971; 94640; 96372; 96375; 97110; 97116; 97161; 97165; 97530; 97760; A9500; J1650; J1815; J2543; J3370; J3480; J7030; J7040; J7613; J7626; J7644; L1930